=== PATIENT | male | born 1985 | race Caucasian/White ===

== ENCOUNTER → 2019-05-02 11:14 | Outpatient (ROUT) | payer OTHER, SELFPAY ==
[2019-05-02 11:33] LABS: Cholesterol 158 mg/dL (140-199); Glucose 84 mg/dL (70-100); HDL Cholesterol 42 mg/dL (40-60); LDL Cholesterol Calculated 98 mg/dL (<100); Triglycerides 88 mg/dL (35-150)
[2019-05-02 11:35] LABS: Hemoglobin A1C% w Est Avg Glu 4.8 % (4.0-6.0)
== END ==
PROVIDERS: PCP Chiropractor; Visit Provider Physician Assistant
DX: Z00.00 Encounter for general adult medical examination without abnormal findings (principal)
CPT/HCPCS: 80061; 82947; 83036

== ENCOUNTER → 2020-01-12 14:04 | Outpatient (CLI) | payer OTHER, SELFPAY ==
[2020-01-12 15:46] LABS: Influenza A - CEPHEID Flu A NEGATIVE (NEGATIVE); Influenza B - CEPHEID Flu B NEGATIVE (NEGATIVE)
[2020-01-14 03:36] LABS: COVID19 Sendout Not Detected (Not Detected)
== END ==
PROVIDERS: PCP Chiropractor; Visit Provider Registered Nurse
DX: R05 Cough (principal); Z20.828 Contact with and (suspected) exposure to other viral communicable diseases
CPT/HCPCS: 87502; 87635

== ENCOUNTER 2022-05-14 05:11 | Emergency (ER) | payer OTHER, MEDICAID, SELFPAY ==
[2022-05-14] VITALS (36 sets, daily range): BP systolic 55–198; BP diastolic 33–87; PULSE 48–95; RESP 0–41; TEMP 36.2; O2SAT 91–100; BMI 25.8
--- NOTE | 2022-05-14 | DI.RAD.S_ITS ---
PROCEDURE: XR CHEST 1V INDICATIONS: POST INTUBATION TECHNIQUE: One view of the chest was acquired. COMPARISON: [facility], CR, XR CHEST 1V, 05/14/2022, 5:39. FINDINGS: Surgical changes and devices: ET tube has been placed, the tip of which is 2.5 cm above the mario. Lungs and pleura: Mild interstitial pulmonary edema. No pleural effusions or pneumothorax. Mediastinum: Mediastinal contours appear normal. Heart size is normal. Bones and chest wall: No suspicious bony lesions. Overlying soft tissues appear unremarkable. IMPRESSION: 1. ET tube tip 2.5 cm above the mario. 2. Mild interstitial pulmonary edema. Comment: Final report is concordant with preliminary interpretation provided by [facility]. Dictated by: Robinson Del Rosario M.D. on 05/14/2022 at 8:23 Approved by: Robinson Del Rosario M.D. on 05/14/2022 at 8:24
--- NOTE | 2022-05-14 05:20 | ED_ITS ---
HPI - General Adult General Chief complaint: Chest Pain Stated complaint: chest pain, jaw pain and eye problem right side Time Seen by Provider: 05/14/22 05:20 History of Present Illness HPI narrative: Otherwise healthy 36-year-old gentleman with no significant medical history presents with chest pain and that began approximately 3:00 a.m. associated with sexual activity. Initially central, than radiating to the back,up to the right jaw and now pain radiating up to the right eye with now bilateral posterior eye pressure. He describes no drug use of any kind and no phosphodiesterase inhibitors, alcohol, stimulants, nitrates. He drove himself to the emergency room and on arrival is complaining chest pressure, he is pale but not diaphoretic. He is significantly hypotensive on arrival without compensatory tachycardia. He is afebrile. He reports no recent infectious disease c omplaints at all. No fevers, cough, chills, vomiting, diarrhea. No recent COVID infections. He does not describe a significant family history of cardiac disease. Does note that he had a similar episode of chest pain approximately a month ago that lasted 30-60 minutes not associated with activity, that episode did not have the jaw or eye pain associated. Related Data Home Medications Medication Instructions Recorded Confirmed No Known Home Medications 01/12/20 01/12/20 Allergies Allergy/AdvReac Type Severity Reaction Status Date / Time No Known Drug Allergies Allergy Verified 01/14/20 08:04 Review of Systems Review of Systems Narrative: Remainder of complete review of systems is otherwise unremarkable except for that included in the HPI. Patient History Social History Smoking Status: Never smoker Smoking Status: Never smoker Exam Initial Vital Signs Initial Vital Signs: Vital Signs Pulse Rate 87 05/14/22 05:15 Pulse Oximetry 100 05/14/22 05:15 General: Pale, weak, complaining of chest pain but not diaphoretic, Able to give a complete and coherent history. Well-nourished well-developed HEENT: Moist mucous membranes, normal sclera with reactive pupils, Neck: No JVD, supple Respiratory: Lungs are clear to auscultation, no wheezing no rales no rhonchi. Full and symmetrical air movement Cardiac: Regular rate and rhythm no murmurs no bruits. palpable radial and dorsalis pedis pulses bilaterally Abdomen: Soft, nontender, good bowel tones, no flank pain Skin: Pale, dry, no rashes Neurologic: Grossly neurologically intact with no obvious asymmetries or a bnormalities Extremities: No trauma, well perfused Psych: Cooperative, appropriate insight and affect Procedures Intubation Time of Intubation: 07:24 Time out performed: Yes sedative: Etomidate Mg Given: 20 paralytic: Succinylcholine Mg Given: 120 Laryngoscope: fiber optic video scope Assist Device Used: fiber optic device ET Tube Size: 8 ET Tube Uncuffed: No Tube Secured Depth (cm): 24 Tube Secured Location: teeth Tube Placement Confirmation: Visualized tube passing through cords, Equal breath sounds bilaterally, Confirmation by capnometry and Chest Xray Patient Tolerated Procedure: Well Course Orders Ordered: Discontinued Medications Etomidate (Etomidate 2 Mg/Ml 10 Ml Vial) 20 mg IV NOW ONE Stop: 05/14/22 08:10 Last Admin: 05/14/22 06:26 Dose: 20 mg Documented By: VIKY Sodium Chloride (Normal Saline 0.9%) 1,000 mls @ 1,000 mls/hr IV BOLUS ONE Stop: 05/14/22 06:27 Last Infusion: 05/14/22 06:45 Dose: 0 mls/hr Documented By: Admin: 05/14/22 05:45 Dose: 1,000 mls/hr Documented By: VIKY NOREPINEPHRINE BITARTRATE/D5W (Levophed) 4 mg in 250 mls @ 30 mls/hr IV TITRATE JIMENA; Protocol Last Titration: 05/14/22 08:25 Dose: 12 mcg/min, 45 mls/hr Documented By: Titration: 05/14/22 05:50 Dose: 12 mcg/min, 45 mls/hr Documented By: Titration: 05/14/22 05:40 Dose: 10 mcg/min, 37.5 mls/hr Documented By: Admin: 05/14/22 05:35 Dose: 8 mcg/min, 30 mls/hr Documented By: VIKY Sodium Chloride (Normal Saline 0.9%) 1,000 mls @ 1,000 mls/hr IV BOLUS ONE Stop: 05/14/22 07:07 Last Infusion: 05/14/22 06:30 Dose: 0 mls/hr Documented By: Admin: 05/14/22 05:30 Dose: 1,000 mls/hr Documented By: VIKY Fentanyl 1,000 mcg/ Dextrose 250 mls @ 13.494 mls/hr IV TITRATE JIMENA; Protocol Last Titration: 05/14/22 08:31 Dose: 0 mcg/kg/hr, 0 mls/hr Documented By: Titration: 05/14/22 07:10 Dose: 1.97 mcg/kg/hr, 37.977 mls/hr Documented By: Admin: 05/14/22 07:00 Dose: 0.16 mcg/kg/hr, 3 mls/hr Documented By: VIKY Lorazepam 20 mg/ Sodium (Chloride) 100 mls @ 3.856 mls/hr IV TITRATE JIMENA; Protocol Last Admin: 05/14/22 08:32 Dose: 0.01 mg/kg/hr, 3.856 mls/hr Documented By: VIKY Sodium Chloride (Normal Saline 0.9%) 1,000 mls @ 1,000 mls/hr IV BOLUS ONE Stop: 05/14/22 09:03 Last Infusion: 05/14/22 07:10 Dose: 0 mls/hr Documented By: Admin: 05/14/22 06:10 Dose: 1,000 mls/hr Documented By: VIKY Sodium Chloride (Normal Saline 0.9%) 1,000 mls @ 1,000 mls/hr IV BOLUS ONE Stop: 05/14/22 09:04 Last Admin: 05/14/22 08:34 Dose: Not Given Documented By: VIKY Epinephrine HCl 1 mg/ Dextrose 251 mls @ 45.18 mls/hr IV TITRATE JIMENA; Protocol Last Titration: 05/14/22 07:48 Dose: 4 mcg/min, 60.24 mls/hr Documented By: Titration: 05/14/22 06:47 Dose: 4 mcg/min, 60.24 mls/hr Documented By: Admin: 05/14/22 06:35 Dose: 3 mcg/min, 45.18 mls/hr Documented By: VIKY Succinylcholine Chloride (Succinylcholine 200 Mg/10 Ml Vial) 120 mg IV NOW ONE Stop: 05/14/22 08:11 Last Admin: 05/14/22 06:27 Dose: 120 mg Documented By: VIKY Vital Signs Vital signs: Vital Signs - 8 hr 05/14/22 05:20 05/14/22 05:15 05/14/22 05:24 Temperature 97.2 F L Pulse Rate 78 87 79 Respiratory Rate 16 14 Blood Pressure 74/34 L Pulse Oximetry 99 100 Oxygen Delivery Method Room Air 05/14/22 05:24 05/14/22 05:25 05/14/22 05:25 Temperature Pulse Rate 76 Respiratory Rate 14 Blood Pressure 74/37 L 66/42 L Pulse Oximetry Oxygen Delivery Method 05/14/22 05:28 05/14/22 05:28 05/14/22 05:30 Temperature Pulse Rate 70 71 Respiratory Rate 13 19 Blood Pressure 61/35 L Pulse Oximetry Oxygen Delivery Method 05/14/22 05:30 05/14/22 05:31 05/14/22 05:31 Temperature Pulse Rate 65 Respiratory Rate 17 Blood Pressure 57/33 L 58/33 L Pulse Oximetry Oxygen Delivery Method 05/14/22 05:35 05/14/22 05:35 05/14/22 05:43 Temperature Pulse Rate 73 56 L Respiratory Rate 16 28 H Blood Pressure 55/34 L Pulse Oximetry 99 Oxygen Delivery Method 05/14/22 05:43 05/14/22 05:46 05/14/22 05:46 Temperature Pulse Rate 53 L Respiratory Rate 18 Blood Pressure 77/46 L 82/53 L Pulse Oximetry 100 Oxygen Delivery Method 05/14/22 05:50 05/14/22 05:50 Temperature Pulse Rate 53 L Respiratory Rate 25 H Blood Pressure 82/51 L Pulse Oximetry 99 Oxygen Delivery Method Medical Decision Making Lab Data Lab results narrative: ABG 7.3/44/87/-/22.1 Result diagrams: 05/14/22 05:27 05/14/22 05:27 Labs: Lab Results 05/14/22 05/14/22 05/14/22 Range/Units 05:27 05:27 05:27 WBC 7.4 (4.5-11.0) X10^3/uL RBC 5.01 (4.5-5.9) X10^6/uL Hgb 14.8 (13.5-17.5) g/dL Hct 42.5 (41-53) % MCV 84.9 (80-100) fL MCH 29.6 (26-34) PG MCHC 34.8 (30-36) % RDW 13.2 (11.6-14.8) % Plt Count 140 L (150-400) X10^3/uL Neut % (Auto) 78.4 H (50-75) % Lymph % (Auto) 15.1 L (25-40) % Barton % (Auto) 5.8 (3-14) % Eos % (Auto) 0.5 L (2-4) % Baso % (Auto) 0.2 (0-2) % Neut # (Auto) 5800 (3196-9099) /uL Lymph # (Auto) 1100 (3714-6680) /uL Barton # (Auto) 400 (0-900) /uL Eos # (Auto) 0 (0-450) /uL Baso # (Auto) 0 (0-100) /uL D-Dimer 2107 H (<500) ng/ml ABG pH (7.35-7.45) ABG pCO2 (35-45) mmHg ABG pO2 (80-100) mmHg ABG HCO3 (22-26) mmol/L ABG Total CO2 (21-31) mmol/L ABG O2 Saturation (95-100) % ABG Base Excess (-2-2) mmol/L FiO2 Sodium 143 (137-145) mmol/L Potassium 3.8 (3.4-5.1) mmol/L Chloride 102 (98-107) mmol/L Carbon Dioxide 32 (22-32) mmol/L BUN 15 (9-20) mg/dL Creatinine 0.99 (0.66-1.25) mg/dL Estimated GFR > 60 (>60) mL/min BUN/Creatinine Ratio 15.2 (6-22) Glucose 110 H (70-100) mg/dL Calcium 8.5 (8.4-10.2) mg/dL Magnesium 2.2 (1.6-2.3) mg/dL Total Bilirubin 0.5 (0.2-1.3) mg/dL AST 42 (17-59) IU/L ALT 44 (<50) IU/L Alkaline Phosphatase 107 (38-126) U/L Total Creatine Kinase 126 (55-170) U/L CK-MB (CK-2) 1.78 (<2.37) ng/mL CK-MB (CK-2) Rel Index 1.4 L (1.5-5.0) % Troponin I < 0.012 (0.01-0.034) ng/mL Total Protein 7.7 (6.3-8.2) g/dL Albumin 4.3 (3.5-5.0) g/dL Globulin 3.4 (1.7-4.1) g/dL Albumin/Globulin Ratio 1.3 (1.0-2.8) Lipase 190 (23-300) U/L SARS-CoV-2 (PCR) (Negative) 05/14/22 05/14/22 Range/Units 05:40 07:18 WBC (4.5-11.0) X10^3/uL RBC (4.5-5.9) X10^6/uL Hgb (13.5-17.5) g/dL Hct (41-53) % MCV (80-100) fL MCH (26-34) PG MCHC (30-36) % RDW (11.6-14.8) % Plt Count (150-400) X10^3/uL Neut % (Auto) (50-75) % Lymph % (Auto) (25-40) % Barton % (Auto) (3-14) % Eos % (Auto) (2-4) % Baso % (Auto) (0-2) % Neut # (Auto) (1329-7352) /uL Lymph # (Auto) (5591-5398) /uL Barton # (Auto) (0-900) /uL Eos # (Auto) (0-450) /uL Baso # (Auto) (0-100) /uL D-Dimer (<500) ng/ml ABG pH 7.30 L (7.35-7.45) ABG pCO2 44.4 (35-45) mmHg ABG pO2 87 (80-100) mmHg ABG HCO3 22 (22-26) mmol/L ABG Total CO2 23 (21-31) mmol/L ABG O2 Saturation 96 (95-100) % ABG Base Excess -4.0 L (-2-2) mmol/L FiO2 100 Sodium (137-145) mmol/L Potassium (3.4-5.1) mmol/L Chloride (98-107) mmol/L Carbon Dioxide (22-32) mmol/L BUN (9-20) mg/dL Creatinine (0.66-1.25) mg/dL Estimated GFR (>60) mL/min BUN/Creatinine Ratio (6-22) Glucose (70-100) mg/dL Calcium (8.4-10.2) mg/dL Magnesium (1.6-2.3) mg/dL Total Bilirubin (0.2-1.3) mg/dL AST (17-59) IU/L ALT (<50) IU/L Alkaline Phosphatase (38-126) U/L Total Creatine Kinase (55-170) U/L CK-MB (CK-2) (<2.37) ng/mL CK-MB (CK-2) Rel Index (1.5-5.0) % Troponin I (0.01-0.034) ng/mL Total Protein (6.3-8.2) g/dL Albumin (3.5-5.0) g/dL Globulin (1.7-4.1) g/dL Albumin/Globulin Ratio (1.0-2.8) Lipase (23-300) U/L SARS-CoV-2 (PCR) Negative (Negative) Point of Care Testing Glucose POC 108 Point of care testing: Point of Care Testing Glucose POC 108 Imaging Data Chest x-ray: My Impression: Normal cardiac silhouette, slightly widened mediastinum, no pneumothorax, no pulmonary infiltrates. No significant anomalies appreciated. CT scan - chest: Radiologist's Impression: preliminary:Type A aortic dissection associated with an ascending aortic aneurysm. Intimal flap extends to the level of the aortic valve, into his brachiocephalic artery and the upper abdomen. Final: FINDINGS:? Image quality:? Excellent.? ? Pulmonary arteries:? Pulmonary arteries are normal in size, and demonstrate no intraluminal filling defects to suggest central pulmonary embolism.? ? Lungs and pleura:? There is a 5 mm nodule in lingula (series 5, image 172).? A 4 x 6 mm subpleural nodule is seen in right middle lobe.? Lungs are otherwise clear.? No pleural effusions or pneumothorax.? Central and peripheral airways are patent.? ? Mediastinum:? The aortic root is dilated measuring 5.5 cm in diameter.? There is a type a dissection of the thoracic aorta involving the aortic root, extending to the aortic arch and descending thoracic and abdominal aorta.? Coronary arteries are at the plane of the intimal flap.? The left coronary artery appears to arise from the false lumen.? The right coronary artery appears to arise from the true lumen.? The dissection involves the innominate artery, which is primarily supplied by the false lumen.? The distal dissection is not entirely visualized in the upper abdomen. ? Heart size is normal, without pericardial effusion.? No mediastinal or hilar adenopathy.? Esophagus is normal in caliber, without hiatal hernia.? ? Bones and chest wall:? No suspicious bony lesions.? Ribs and thoracic spine appear intact throughout.? Thyroid gland is normal.? No axillary or supraclavicular adenopathy.? ? Abdomen:? Visualized upper abdominal solid organs appear normal in the early arterial phase of enhancement.? There is a 1.5 cm splenule. ? IMPRESSION:? ? 1. There is a large type A dissection of aorta. ? Coronary arteries are at the intimal flap.? The left coronary artery appears to be supplied by the false lumen; and the right coronary artery appears to arise from the true lumen.? Dissection involves the innominate artery (brachiocephalic trunk) which is primarily supplied by the false lumen.? There is partial visualization of the distal dissection in the upper abdominal aorta.? ? 2. Aneurysmal aortic root measuring 5.5 cm in diameter.? ? 3. No evidence for pulmonary embolism.? The distal dissection in the abdominal aorta is not entirely within the field of view.? Follow-up CT using dissection protocol is suggested. ? 4. Bilateral lung nodules.? Please see enclosed follow-up recommendation. ? ECG Data Interpretation: Sinus rhythm at a rate of 75 Normal interval normal axis No acute ischemic changes MDM Narrative Medical decision making narrative: 36-year-old gentleman with no significant medical, history acute onset chest pain during sexual activity worsening with jaw pain, posterior eye pain. Arrives pale, significantly hypotensive but otherwise physical exam is unremarkable. Progressive hypotension. No signs or clinical history to suggest sepsis. Progressive worsening of his chest pain with absolutely normal EKG. Chest x-ray does not suggest pneumothorax or dramatically enlarged cardiac silhouette. 2 L of fluid and Levophed started and blood pressures are still soft with maps in the mid 60 range. Possibilities at this time include acute coronary syndrome, dissection, pulmonary embolism, cardiac tamponade, no infectious complaints or physical exam findings to point to sepsis, toxicology however he denies any medications prescription or recreational. No headaches or other neurologic findings to suggest stroke or stroke-like etiology. Blood work is pending. CT scan of the chest will be ordered. Hemorrhagic and hypovolemic shock are considered however there is no acute blood loss, no abdominal pain no obvious bleeding source and no reports of significant vomiting or diarrhea to explain significant volume losses otherwise. He describes no recent trauma. 600 patient continues to clinically deteriorate. Continued hypotension, poor perfusion, increasing chest pain. He is finishing his 3 L of fluid Levophed is started. He has moved to room 2 for planned intubation due to increased chest pain, work of breathing and respiratory distress. Waiting for CT images 615 CT of the chest reveals type a aortic dissection associated with an ascend ing aortic aneurysm. The intimal flap extends to the level of the aortic valve and into the brachiocephalic artery and the upper abdomen. Call to [facility]. Calls to [facility] as well as [facility] to arrange for transfer 630 radiology confirmation of dissection. Patient is successfully intubated. He is continuing to be hypotensive and a slightly bradycardic. Epinephrine drip is started 640 cardiac thoracic surgery acceptance at [facility]. Discussed with [facility]. Estimated time arrival is 7:00 a.m.. 650 call from [facility], due to mechanical difficulties the initial helicopter is not available. Next available helicopter will be at 8:30 a.m.. Will try alternate choice is for immediate transfer to [facility] prior to intubation, Discussed with patient whom to call. He very specifically requested that Kelin Cedillo and Barber Cedillo have access to any in all information regarding his care. He also provided access code to his phone should that be needed. Kelin Cedillo's phone number is [phone]. I have spoken with her at 7:00 a.m. she is updated on the critical nature of his findings as well as plans to transfer to [facility]. I have asked that she call [facility] for updates. She will update family. 655 call to [facility] to confirm patient is in route. 657 call from [facility]. They contacted [facility] and chopper is expected at 7:11 a.m. 700 care is reviewed with Dr. London. 718 BP Left 60/40 Right 159/69 [facility] is landing. Current drips include epi at 4 mics/min and levo at 12 mics. Ativan will is started and fentanyl drip continues. He has had multiple push doses of fentanyl and Versed for sedation. 744 Pt leaving the deptment , crew estimates ETA at Prov ER/OR 815. 751 Dr London updated Critical Care Time Critical Care Time Critical Care Time: Yes Total Critical Care Time: 137 Attestation: Critical care time is separate from other billable procedures. There is a high probability of a significant, sudden or life-threatening deterioration that requires my full and direct attention, intervention and personal management. This critical care time includes consultation with family and other consulting doctors, review of records, and interpretation of data from labs, EKGs and imaging as well as managements of undifferentiated shock chest pain and increasing respiratory distress Discharge Plan Departure Patient Disposition: [facility] Clinical Impression: Aortic dissection, Chest pain, Aneurysm of aortic root, Acute respiratory distress Prescriptions: No Action No Known Home Medications Referrals: [facility] [Primary Care Provider] -
--- NOTE | 2022-05-14 05:25 | DI.RAD.S_ITS ---
PROCEDURE: XR CHEST 1V INDICATIONS: chest pain TECHNIQUE: One view of the chest was acquired. COMPARISON: None. FINDINGS: Surgical changes and devices: None. Lungs and pleura: Lungs are clear. No pleural effusions or pneumothorax. Mediastinum: Mediastinal contours appear normal. Heart size is normal. Bones and chest wall: No suspicious bony lesions. Overlying soft tissues appear unremarkable. IMPRESSION: No evidence acute pulmonary process. Comment: Final report is concordant with preliminary interpretation provided by [facility]. Dictated by: Robinson Del Rosario M.D. on 05/14/2022 at 8:22 Approved by: Robinson Del Rosario M.D. on 05/14/2022 at 8:23
[2022-05-14] MEDS: SODIUM CHLORIDE 0.9% 1,000 ML 1000 ML IV ×3 (05:30→06:10)
[2022-05-14] MEDS: NOREPINEPHRINE BITARTRATE/D5W 4 MG/250 ML PLAST..BAG 30 MG IV (05:35)
[2022-05-14 05:41] LABS: Add Manual Diff / Slide Review NO; Basophils Absolute Auto 0 /uL (0-100); Basophils Percent Auto 0.2 % (0-2); Eosinophils Absolute Auto 0 /uL (0-450); Eosinophils Percent Auto 0.5 % (2-4); Hematocrit 42.5 % (41-53); Hemoglobin 14.8 g/dL (13.5-17.5); Lymphocytes Absolute Auto 1100 /uL (1100-4500); Lymphocytes Percent Auto 15.1 % (25-40); Mean Corpuscular HGB Conc 34.8 % (30-36); Mean Corpuscular Hemoglobin 29.6 PG (26-34); Mean Corpuscular Volume 84.9 fL (80-100); Monocytes Absolute Auto 400 /uL (0-900); Monocytes Percent Auto 5.8 % (3-14); Neutrophils Absolute Auto 5800 /uL (1500-7000); Neutrophils Percent Auto 78.4 % (50-75); Platelet Count 140 X10^3/uL (150-400); Red Blood Cell Count 5.01 X10^6/uL (4.5-5.9); Red Cell Distribution Width 13.2 % (11.6-14.8); White Blood Cell Count 7.4 X10^3/uL (4.5-11.0)
--- NOTE | 2022-05-14 05:49 | DI.CT.S_ITS ---
PROCEDURE: CT ANGIO CHEST PE PROTOCOL INDICATIONS: chest pain,hypotension TECHNIQUE: After the administration of intravenous contrast, 2 mm thick sections acquired from the pulmonary apices to the posterior costophrenic angles. 3-dimensional maximum intensity projection (MIP) coronal and sagittal reformats were then acquired through the thorax. For radiation dose reduction, the following was used: automated exposure control, adjustment of mA and/or kV according to patient size. COMPARISON: [facility], CR, XR CHEST 1V, 05/14/2022, 6:29. FINDINGS: Image quality: Excellent. Pulmonary arteries: Pulmonary arteries are normal in size, and demonstrate no intraluminal filling defects to suggest central pulmonary embolism. Lungs and pleura: There is a 5 mm nodule in lingula (series 5, image 172). A 4 x 6 mm subpleural nodule is seen in right middle lobe. Lungs are otherwise clear. No pleural effusions or pneumothorax. Central and peripheral airways are patent. Mediastinum: The aortic root is dilated measuring 5.5 cm in diameter. There is a type a dissection of the thoracic aorta involving the aortic root, extending to the aortic arch and descending thoracic and abdominal aorta. Coronary arteries are at the plane of the intimal flap. The left coronary artery appears to arise from the false lumen. The right coronary artery appears to arise from the true lumen. The dissection involves the innominate artery, which is primarily supplied by the false lumen. The distal dissection is not entirely visualized in the upper abdomen. Heart size is normal, without pericardial effusion. No mediastinal or hilar adenopathy. Esophagus is normal in caliber, without hiatal hernia. Bones and chest wall: No suspicious bony lesions. Ribs and thoracic spine appear intact throughout. Thyroid gland is normal. No axillary or supraclavicular adenopathy. Abdomen: Visualized upper abdominal solid organs appear normal in the early arterial phase of enhancement. There is a 1.5 cm splenule. IMPRESSION: 1. There is a large type A dissection of aorta. Coronary arteries are at the intimal flap. The left coronary artery appears to be supplied by the false lumen; and the right coronary artery appears to arise from the true lumen. Dissection involves the innominate artery (brachiocephalic trunk) which is primarily supplied by the false lumen. There is partial visualization of the distal dissection in the upper abdominal aorta. 2. Aneurysmal aortic root measuring 5.5 cm in diameter. 3. No evidence for pulmonary embolism. The distal dissection in the abdominal aorta is not entirely within the field of view. Follow-up CT using dissection protocol is suggested. 4. Bilateral lung nodules. Please see enclosed follow-up recommendation. No significant discrepancy with the shift production associate radiology preliminary report. Fleischner Society criteria for SOLID lung nodule followup. Nodule size (mm)Low-risk patientHigh-risk patient?4No follow-up neededFollow-up at 12 mo; if no change, no further follow-up>4-9Bsjlem-cr CT at 12 mo; if no change, no further follow-up needed.Initial follow-up CT at 6-12 mo, then 18-24 mo if no change. >6-8Initial follow-up CT at 6-12 mo, then 18-24 mo if no change. Initial follow-up CT at 3-6 mo, then 9-12 mo and 24 mo if no change. >8Follow-up CT at 3, 9, 24 mo. Or PET and/or biopsy.Same as for low-risk pts. Dictated by: Wayne Kaiser M.D. on 05/14/2022 at 7:55 Approved by: Wayne Kaiser M.D. on 05/14/2022 at 8:16
[2022-05-14 06:01] LABS: D Dimer 2107 ng/ml (<500)
[2022-05-14 06:13] LABS: COVID19 -Nasal RAPID Negative (Negative)
[2022-05-14] MEDS: ETOMIDATE 2 MG/ML 10 ML VIAL 20 MG IV (06:26)
[2022-05-14] MEDS: SUCCINYLCHOLINE 200 MG/10 ML VIAL 120 MG IV (06:27)
--- NOTE | 2022-05-14 06:28 | PC.NURSE ---
0628 pt intubated with 8.[address] Unger and secured 26 @ the lip. PCXR done for conformation. 0648 16 fr coude martínez inserted with 20 ml jessica urine returned. 0716 16fr og tube inserted after pt vomited undigested food and was suctioned.
[2022-05-14] MEDS: fentaNYL 100 MCG/2 ML INJ 400 MCG (06:35)
[2022-05-14] MEDS: EPINEPHrine 1 MG in DEXTROSE 5% IN WATER 250 ML 45.18 MG IV (06:35)
[2022-05-14] MEDS: MIDAZOLAM 2 MG/2 ML VIAL ×2 (06:52→07:14)
[2022-05-14 06:57] LABS: Alanine Aminotransferase 44 IU/L (<50); Albumin 4.3 g/dL (3.5-5.0); Albumin Globulin Ratio 1.3 (1.0-2.8); Alkaline Phosphatase 107 U/L (38-126); Aspartate Aminotransferase 42 IU/L (17-59); BUN Creatinine Ratio 15.2 (6-22); Bilirubin Total 0.5 mg/dL (0.2-1.3); Blood Urea Nitrogen 15 mg/dL (9-20); Calcium 8.5 mg/dL (8.4-10.2); Carbon Dioxide 32 mmol/L (22-32); Chloride 102 mmol/L (98-107); Creatine Kinase 126 U/L (55-170); Estimated Glomerular Filt Rate > 60 mL/min (>60); Globulin 3.4 g/dL (1.7-4.1); Glucose 110 mg/dL (70-100); Lipase 190 U/L (23-300); Magnesium 2.2 mg/dL (1.6-2.3); Potassium 3.8 mmol/L (3.4-5.1); Sodium 143 mmol/L (137-145); Total Protein 7.7 g/dL (6.3-8.2)
[2022-05-14] MEDS: fentaNYL 1,000 MCG in DEXTROSE 5% IN WATER 230 ML 3 MCG IV (07:00)
[2022-05-14 07:09] LABS: Troponin I < 0.012 ng/mL (0.01-0.034)
[2022-05-14 07:12] LABS: CKMB % Relative Index 1.4 % (1.5-5.0); Creatine Kinase MB 1.78 ng/mL (<2.37); HEMOLYSIS 28 (0-50)
[2022-05-14 07:40] LABS: HCO3 ABG 22 mmol/L (22-26); PCO2 ABG 44.4 mmHg (35-45); PO2 ABG 87 mmHg (80-100)
[2022-05-14 07:41] LABS: Fractionated Inspired Oxygen 100; Oxygen Saturation ABG 96 % (95-100); TCO2 ABG 23 mmol/L (21-31)
[2022-05-14] MEDS: LORazepam 20 MG in SODIUM CHLORIDE 0.9% 90 ML 3.856 MG IV (08:32)
--- NOTE | 2022-06-01 06:11 | PC.NURSE ---
On May 14 the tpt was transferred, he had Epinephrine infusing with 180.72 ml to be infused per [facility] 70.28 ml was infused prior to transfer; Norepinephrine infusing with 8.75 ml to be infused per [facility] 116.25 ml was infused prior to transfer. the Lorazepam was never hung to infuse but all of the bag was wasted
== END 2022-05-14 07:48 | disposition short-term general hospital (02) ==
PROVIDERS: Emergency Provider Emergency Medicine; PCP Chiropractor
DX: I71.02 Dissection of abdominal aorta (principal); R07.9 Chest pain, unspecified; I71.9 Aortic aneurysm of unspecified site, without rupture; R06.03 Acute respiratory distress; I95.9 Hypotension, unspecified; R00.1 Bradycardia, unspecified; Z20.822 Contact with and (suspected) exposure to COVID-19
CPT/HCPCS: 31500; 36415; 36600; 71045; 71275; 80053; 82550; 82553; 82805; 82962; 83690; 83735; 84484; 85025; 85379; 87635; 93005; 93010; 94002; 94799; 96365; 96367; 96368; 96375; 99285; 99291; 99292; C9803; J0171; J0330; J2060; J2250; J3010; Q9967

== ENCOUNTER 2022-12-13 11:04 | Emergency (ER) | payer OTHER, MEDICAID, SELFPAY ==
[2022-05-14 07:08] VITALS: RESP 20
[2022-12-13] VITALS (11 sets, daily range): BP systolic 114–130; BP diastolic 53–60; PULSE 58–76; RESP 16; TEMP 37.2; O2SAT 91–100; BMI 22.8
--- NOTE | 2022-12-13 13:22 | ED.MALEGU ---
HPI - Male Genitourinary <Amanda Murphy PA-C - Last Filed: 12/13/22 15:24> General Chief complaint: Urogenital-Male Stated complaint: cath issue/dvt LT leg/ Time Seen by Provider: 12/13/22 12:09 History of Present Illness HPI Narrative: 37-year-old male with past medical history aortic dissection, status post surgery for dissection repair presents to the ED with concern for blocked urinary catheter. Patient suffered a aortic dissection in May 2022, subsequently had surgery for the dissection repair, has had a partial colectomy, colostomy, also suffered spinal cord injury causing paralysis from waist down. Patient has a indwelling suprapubic catheter in place. Patient states that he was diagnosed with a DVT in the left leg and PE 2 weeks ago when he was seen at [facility] in [place], has been on Eliquis since then. Patient denies missed doses of Eliquis. Patient states that he is concerned that he is drinking a lot water, which does not match up with the amount of urine draining into his bag. Patient also states that his ostomy bag has been draining more watery stool. Patient states that he is concerned that his left leg swelling has not subsided. Patient denies fever, chills, shortness of breath, nausea, vomiting. Patient states he has had some chest pain that has not changed since he was diagnosed with a PE. Related Data Home Medications Medication Instructions Recorded Confirmed No Known Home Medications 01/12/20 01/12/20 Allergies Allergy/AdvReac Type Severity Reaction Status Date / Time oxycodone AdvReac Verified 12/13/22 11:34 tramadol AdvReac Verified 12/13/22 11:34 Review of Systems <Amanda Murphy PA-C - Last Filed: 12/13/22 15:24> Review of Systems ROS Unobtainable: All systems reviewed & are unremarkable except as noted in HPI and below Constitutional Constitutional: Denies chills, Denies fatigue, Denies fever(s), Denies frequent falls, Denies lethargy and Denies weakness Eyes Eyes: Denies change in vision, Denies eye discharge, Denies irritation and Denies loss of vision ENT Ears, Nose, Mouth, and Throat: Denies change in voice, Denies dizziness, Denies neck pain, Denies sore throat and Denies throat swelling Cardiovascular Cardiovascular: Denies chest pain, Denies irregular heart rhythm, Denies lightheadedness, Denies palpitations, Denies dyspnea, Denies dyspnea on exertion and Denies orthopnea Respiratory Respiratory: Denies cough, Denies dyspnea, Denies dyspnea on exertion and Denies wheezing Gastrointestinal Gastrointestinal: Denies abdominal pain, Denies change in bowel habits, Denies diarrhea, Denies nausea and Denies vomiting Genitourinary Genitourinary: Denies hematuria, Denies flank pain, Denies urinary incontinence and Denies urinary urgency Comments: Reduced urine draining from catheter Musculoskeletal Musculoskeletal: Denies back pain, Denies muscle weakness, Denies neck pain, Denies numbness and Denies tingling Comments: Left Leg swelling Integumentary/Breasts Skin/Breast: Denies pruritus, Denies erythema, Denies rash and Denies wounds Neurologic Neurologic: Denies behavioral changes, Denies confusion, Denies dizziness, Denies frequent falls, Denies loss of vision, Denies numbness, Denies tingling and Denies weakness Psychiatric Psychiatric: Denies anxiety, Denies behavioral changes, Denies confusion, Denies depression, Denies homicidal ideation and Denies suicidal ideation Endocrine Endocrine: Denies fatigue, Denies flushing and Denies palpitations Hematologic/Lymphatic Hematologic/Lymphatic: Denies easy bruising Allergic/Immunologic Allergic/Immunologic: Denies urticaria, Denies throat swelling and Denies wheezing Patient History <Amanda Murphy PA-C - Last Filed: 12/13/22 15:24> Social History Smoking Status: Never smoker Smoking Status: Never smoker Substance Use Type: does not use Exam <Amanda Murphy PA-C - Last Filed: 12/13/22 15:24> Narrative Exam Narrative: Const General:?cooperative, healthy appearing and comfortable [facility] Head:?normal to inspection Ears:?hearing grossly normal bilaterally Nose:?external nose normal Face and sinus:?normal facial exam and sinuses nontender Mouth:?oral mucosae normal Throat:?posterior oropharynx normal Eyes General:?appearance normal, both eyes and all related structures Neck Neck:?normal visual inspection and no lymphadenopathy noted Resp Effort & Inspection:?normal respiratory effort Auscultation:?clear to auscultation bilaterally Cardio Rate:?regular rate Rhythm:?regular rhythm Suprapubic catheter in place, draining urine Neuro General:?patient alert, patient awake and patient oriented x3 Initial Vital Signs Initial Vital Signs: Vital Signs Temperature 99 F 12/13/22 11:25 Pulse Rate 66 12/13/22 11:25 Respiratory Rate 16 12/13/22 11:25 Blood Pressure 114/53 L 12/13/22 11:25 Pulse Oximetry 98 12/13/22 11:25 Oxygen Delivery Method Room Air 12/13/22 11:25 <Chaka Rdz DO - Last Filed: 12/13/22 17:57> Initial Vital Signs Initial Vital Signs: Vital Signs Temperature 99 F 12/13/22 11:25 Pulse Rate 66 12/13/22 11:25 Respiratory Rate 16 12/13/22 11:25 Blood Pressure 114/53 L 12/13/22 11:25 Pulse Oximetry 98 12/13/22 11:25 Oxygen Delivery Method Room Air 12/13/22 11:25 Course <Amanda Murphy PA-C - Last Filed: 12/13/22 15:24> Vital Signs Vital signs: Vital Signs - 8 hr 12/13/22 11:25 12/13/22 11:40 12/13/22 12:00 Temperature 99 F Pulse Rate 66 60 58 L Respiratory Rate 16 Blood Pressure 114/53 L Pulse Oximetry 98 91 99 Oxygen Delivery Method Room Air Room Air 12/13/22 12:30 12/13/22 12:44 12/13/22 12:44 Temperature Pulse Rate 76 74 Respiratory Rate Blood Pressure 126/60 Pulse Oximetry 99 99 Oxygen Delivery Method 12/13/22 13:00 12/13/22 13:30 12/13/22 14:00 Temperature Pulse Rate 67 64 68 Respiratory Rate Blood Pressure Pulse Oximetry 99 100 100 Oxygen Delivery Method Room Air Room Air 12/13/22 14:30 12/13/22 15:00 12/13/22 15:04 Temperature Pulse Rate 72 63 68 Respiratory Rate Blood Pressure Pulse Oximetry 99 97 97 Oxygen Delivery Method Room Air 12/13/22 15:04 Temperature Pulse Rate Respiratory Rate Blood Pressure 130/60 Pulse Oximetry Oxygen Delivery Method <DO Genna Maurer Last Filed: 12/13/22 17:57> Vital Signs Vital signs: Vital Signs - 8 hr 12/13/22 11:25 12/13/22 11:40 12/13/22 12:00 Temperature 99 F Pulse Rate 66 60 58 L Respiratory Rate 16 Blood Pressure 114/53 L Pulse Oximetry 98 91 99 Oxygen Delivery Method Room Air Room Air 12/13/22 12:30 12/13/22 12:44 12/13/22 12:44 Temperature Pulse Rate 76 74 Respiratory Rate Blood Pressure 126/60 Pulse Oximetry 99 99 Oxygen Delivery Method 12/13/22 13:00 12/13/22 13:30 12/13/22 14:00 Temperature Pulse Rate 67 64 68 Respiratory Rate Blood Pressure Pulse Oximetry 99 100 100 Oxygen Delivery Method Room Air Room Air 12/13/22 14:30 12/13/22 15:00 12/13/22 15:04 Temperature Pulse Rate 72 63 68 Respiratory Rate Blood Pressure Pulse Oximetry 99 97 97 Oxygen Delivery Method Room Air 12/13/22 15:04 Temperature Pulse Rate Respiratory Rate Blood Pressure 130/60 Pulse Oximetry Oxygen Delivery Method MDM - Male Genitourinary <Amanda Murphy PA-C - Last Filed: 12/13/22 15:24> [facility] Narrative Medical decision making narrative: 37-year-old male with past medical history aortic dissection, status post surgery for dissection repair presents to the ED with concern for blocked urinary catheter. Physical exam is reassuring for soft compartments, no erythema or signs of infection. Patient has no new symptoms of shortness of breath or worsening chest pain. Vitals are normal and patient appears comfortable. The suprapubic catheter appears to be draining, will bladder scan, reassess. Bladder scan shows minimal residual urine in the bladder, less than 10 mL. Suprapubic catheter appears to be in place, continues to drain. Patient's ostomy bag shows watery stool. It is likely that patient is losing water through stool, and is having reduced urine output. Patient has a urologist follow-up for the suprapubic catheter care and change, agrees to keep that appointment.Left leg appears swollen compared to right, however compartments are soft and there are no signs of infection including erythema, discharge, warmth. Swelling is likely residual from the DVT from 2 weeks ago. Patient is also not having any new symptoms regarding the PE such as worsening shortness of breath or chest pain. ED return precautions were discussed with patient. Patient verbalized understanding. Medical records reviewed: Yes Discharge Plan Departure Patient Disposition: Home Clinical Impression: Encounter for suprapubic catheter care Instructions: How to Care for a Suprapubic Catheter Activity Restrictions/Additional Instructions: You were evaluated in the ED to check for a possible blocked suprapubic catheter and for leg swelling. Since you have been diagnosed with a DVT and a PE just 2 weeks ago, it is expected that your leg swelling will go down gradually over the next several weeks or months. It is reassuring that the leg is soft and there are no signs of infection such as redness or discharge. Your suprapubic catheter was checked and it is draining urine normally. It is likely that you are losing more water through your stool, which results in lesser urine production. Please follow-up with your urologist as scheduled for catheter care. Please follow-up with your PCP as soon as possible for continued oversight of the DVT and PE. Continue Eliquis. Continue good hydration. Return to the ED if you have shortness of breath, worsening chest pain, fevers, chills. Prescriptions: No Action No Known Home Medications Referrals: [facility] [Primary Care Provider] - Stand Alone Forms: Patient Portal/API <Chaka Rdz, - Last Filed: 12/13/22 17:57> [facility]estation: Dr Rdz Co-Sign Statement: I was available for consultation during this patient's emergency department visit. This chart is signed by myself for administrative purposes only. I did not have direct contact with this patient during this visit. They were seen independently by the APC.
--- NOTE | 2022-12-13 13:32 | PC.NURSE ---
Patient has pubic catheter, placed approximately 6 weeks ago. Pt reports urine leaking around catheter 2 days prior, this has resolved. Pt reports drinking fluids and feels he is not having adequate output. Pt states he drank water bottle of water today, decreased his intake since this has been happening. Urine is clear and yellow in catheter bag. Pubic site is clean and dry. Pt recently placed on eliquis for known PE and DVT.
--- NOTE | 2022-12-13 14:37 | PC.NURSE ---
New output noted in pt's catheter bag. Pt has full colostomy bag with yellow/brown liquid stool, pt providing self care including removing gas from colostomy.
== END 2022-12-13 15:24 | disposition home or self-care (01) ==
PROVIDERS: Emergency Provider Student in an Organized Health Care Education/Training Program; PCP Chiropractor
DX: T83.098A Other mechanical complication of other urinary catheter, initial encounter (principal)
CPT/HCPCS: 51798; 99282; 99283

== ENCOUNTER 2023-01-11 13:29 | Emergency (ER) | payer OTHER, MEDICAID, SELFPAY ==
[2022-05-14 07:08] VITALS: RESP 20
[2023-01-11 13:35] VITALS: BP 142/64; PULSE 73; RESP 14; TEMP 36.3; O2SAT 100
[2023-01-11 13:50] LABS: Appearance Urine UA CLOUDY; Bilirubin Urine UA 2+ (NEGATIVE); Color Urine UA BROWN; Glucose Urine UA NEGATIVE (Negative); Ketones Urine UA NEGATIVE (NEGATIVE); Leukocyte Esterase Urine UA 3+ (NEGATIVE); Nitrite Urine UA POSITIVE (Negative); Occult Blood Urine UA 3+ (Negative); Protein Urine UA 3+ (Negative); pH Urine UA 6.5 (4.5-8.0)
[2023-01-11 13:54] LABS: Ictotest Urine Positive (Negative)
[2023-01-11 13:57] LABS: Bacteria Urine Many (>30); Calcium Oxalate Crystals Urine Occasional; Culture Indicated Urine Specimen Cultured; RBC Urine 30-100/HPF (0-5/HPF); Squamous Epithelial Cell Urine 0-1 /HPF (0-5/HPF); WBC Urine 30-100/HPF (0-5/HPF)
--- NOTE | 2023-01-11 16:09 | ED_ITS ---
HPI - Male Genitourinary General Chief complaint: Urogenital-Male Stated complaint: blood in urine Time Seen by Provider: 01/11/23 15:35 History of Present Illness HPI Narrative: 37-year-old male nonsmoker with history of aortic dissection and resultant paraplegia presents with a chief complaint of discolored urine in his suprapubic bag for the past few days. He denies fever chills nor nausea, vomiting or diarrhea. He denies any headache or blurred vision. He has no chest pain or shortness of breath. He states that his catheter was last changed 2 weeks ago. Related Data Previous Rx's Medication Instructions Recorded sulfamethoxazole 800 1 tab PO BID 10 days #20 tabs 01/11/23 mg-trimethoprim 160 mg tablet (Bactrim DS) Allergies Allergy/AdvReac Type Severity Reaction Status Date / Time oxycodone AdvReac Verified 01/11/23 13:38 tramadol AdvReac Verified 01/11/23 13:38 Review of Systems Review of Systems Narrative: GENERAL: Denies chills, fatigue, malaise, fever, sweats. HEENT: Denies sinus pain, ear pain, sore throat, difficulty swallowing, dizziness. RESPIRATORY: Denies dyspnea, cough, wheezing, hemoptysis, sputum. CARDIOVASCULAR: Denies chest pain, palpitations, orthopnea, edema, GASTROINTESTINAL: Denies nausea, vomiting, abdominal pain, diarrhea, constip ation, melena. : See HPI MUSCULOSKELETAL: denies weakness, joint pain, or bony pain SKIN: Denies rash, skin lesions, or other NEUROLOGIC: Denies weakness, headache, numbness, change in speech, confusion, seizures, incoordination. PSYCHIATRIC: No concerning psychosocial issues. 12 point review of systems is negative except for those stated above Patient History Social History Smoking Status: Never smoker Smoking Status: Never smoker Substance Use Type: does not use Exam Narrative Exam Narrative: GEN: AOx3 and in no obvious distress EYES: Pupils are equal, round, and reactive to light and accommodation. Extraoccular muscles are intact bilaterally. There is no subconjunctival hemorrhage or exudate. CHEST: Lungs are clear to auscultation bilaterally and free of wheezes, rales, or rhonchi. Heart rate is regular rhythm, there are no murmurs, clicks, rubs, or gallops. There is no chest wall tenderness. ABD: Abdomen is soft and nontender. Suprapubic catheter in place There is no guarding or rebound. Bowel sounds are normal in all 4 quadrants. There is no mass or organomegaly. EXT: Full painless ROM of all extremities with no loss of sensation or strength. SKIN: Warm, pink, and dry. No erythema or rash Initial Vital Signs Initial Vital Signs: Vital Signs Temperature 97.3 F L 01/11/23 13:35 Pulse Rate 73 01/11/23 13:35 Respiratory Rate 14 01/11/23 13:35 Blood Pressure 142/64 H 01/11/23 13:35 Pulse Oximetry 100 01/11/23 13:35 Oxygen Delivery Method Room Air 01/11/23 13:35 Course Orders Ordered: ED Orders 01/11/23 13:42 Ictotest Urine Stat Urinalysis and Microscopic Stat Urine Culture Stat Vital Signs Vital signs: Vital Signs - 8 hr 01/11/23 13:35 Temperature 97.3 F L Pulse Rate 73 Respiratory Rate 14 Blood Pressure 142/64 H Pulse Oximetry 100 Oxygen Delivery Method Room Air MDM - Male Genitourinary Lab Data Labs: Lab Results 01/11/23 Range/Units 13:42 Urine Color Brown Urine Appearance Cloudy Urine pH 6.5 (4.5-8.0) Ur Specific Norris 1.020 (1.000-1.035) Urine Protein 3+ H (Negative) Urine Glucose (UA) Negative (Negative) g/dL Urine Ketones Negative (NEGATIVE) Urine Occult Blood 3+ H (Negative) Urine Nitrate Positive H (Negative) Urine Bilirubin 2+ H (NEGATIVE) Ur Bilirubin Confirm Positive H (Negative) Urine Urobilinogen 2.0 H (0.2) E.U./dL Ur Leukocyte Esterase 3+ H (NEGATIVE) Urine RBC 30-100/hpf H (0-5/HPF) Urine WBC 30-100/hpf H (0-5/HPF) Ur Squamous Epith Cells 0-1 /hpf (0-5/HPF) Calcium Oxalate Crystal Occasional H Urine Bacteria Many (>30) H (None) Ur Culture Indicated? Specimen cultured MDM Narrative Medical decision making narrative: [37] year old patient presents with abnormal appearing urine, suprapubic catheter in place Multiple etiologies for patient's symptoms considered including, but not limited to: [] Prior Charts reviewed in our EMR Primary Historian: patient Labs reviewed and interpreted by myself: Urinalysis convincing for infection Patient's symptoms improved over duration of stay with above-stated therapies. Findings and discharge diagnosis discussed with patient/family followed by verbalization of understanding Return precautions discussed with patient/family whom verbalize understanding of diagnosis and plan Discharge Plan Departure Patient Disposition: Home Clinical Impression: Urinary tract infection Instructions: DI for Urinary Tract Infection (UTI) Activity Restrictions/Additional Instructions: *You have been diagnosed with [urinary tract infection] *What to do: *Please continue to take your regular medications as directed. [ x] New medication prescriptions sent to your pharmacy: [facility] [ ] New medication written as a paper prescription [ ] No new medications given *Please follow up with your primary care provider in 2-3 days, call for an appointment. Let them know you were seen in the Emergency Department and that we ask that you be seen in follow up. We will electronically transmit a record of today's note if your PCP is in our system *If you do not have a primary care provider please contact the [facility] Resource line at [phone]. They will ask some questions about your medical history and help get you set up with a doctor in the community. *Return to Emergency Department if you should have any new, worsening or concerning symptoms, such as [fever greater than 101 F, shaking chills, worsening pain, persistent vomiting or other bothersome symptoms] If you would like to write a message to Dr. Christa Unger, please do so and email it to me at [email or web address] and I will be sure she gets it. Prescriptions: New sulfamethoxazole-trimethoprim [Bactrim DS] 800-160 mg tablet 1 tab PO BID 10 Days Qty: 20 0RF Referrals: Miscellaneous,Doctor, MD [Primary Care Provider] - Stand Alone Forms: Patient Portal/API
[2023-01-11 16:50] VITALS: BP 130/65; PULSE 70; RESP 18; O2SAT 100
== END 2023-01-11 16:50 | disposition home or self-care (01) ==
PROVIDERS: Emergency Provider Emergency Medicine
DX: N39.0 Urinary tract infection, site not specified (principal)
CPT/HCPCS: 81001; 87077; 87086; 87186; 99281; 99282

== ENCOUNTER 2023-09-04 01:20 | Emergency (ER) | payer OTHER, SELFPAY ==
[2022-05-14 07:08] VITALS: RESP 20
[2023-09-04] VITALS (17 sets, daily range): BP systolic 139–154; BP diastolic 63–69; PULSE 72–87; RESP 12–19; TEMP 36.2; O2SAT 95–100; BMI 22.8
--- NOTE | 2023-09-04 01:41 | DI.RAD.S_ITS ---
PROCEDURE: XR CHEST 1V INDICATIONS: chest pain TECHNIQUE: One view of the chest was acquired. COMPARISON: [facility], CT, CT ANGIO CHEST PE PROTOCOL, 05/14/2022, 6:04. [facility], CR, XR CHEST 1V, 05/14/2022, 6:29. [facility], CR, XR CHEST 1V, 05/14/2022, 5:39. FINDINGS: Surgical changes and devices: Sternotomy wires, expandable aortic stent in place, valvular prosthesis noted, likely aortic. Lungs and pleura: Lungs are clear. No pleural effusions or pneumothorax. Mediastinum: Mediastinal contours appear normal. Heart size is normal. Bones and chest wall: No suspicious bony lesions. Overlying soft tissues appear unremarkable. IMPRESSION: Postsurgical changes subsequent to diagnosis of aortic dissection 05/24. No acute disease at this time. Dictated by: Philipp Martinez M.D. on 09/04/2023 at 1:54 Approved by: Philipp Martinez M.D. on 09/04/2023 at 1:56
--- NOTE | 2023-09-04 02:04 | ED_ITS ---
HPI - Chest Pain <Earlene Warren, DO - Last Filed: 09/04/23 17:56> General Chief Complaint: Chest Pain Stated Complaint: PAIN R SIDE OF CHEST/ BLOOD CLOT?/DEHYDRATED/UTI Time Seen by Provider: 09/04/23 01:34 Source: patient Mode of arrival: Family Vehicle History of Present Illness HPI narrative: Patient is a 38-year-old male who has significant history of cardiac diet suction aortic valve replacement presenting today with right-sided chest pain. 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 He reports that today he has some right- sided chest pain it has been there for a couple days maybe a little bit worse today. No fever chills or cough pain does not move or radiate. He reports that it is at about nipple line. He also feels like he might be a little dehydrated his ostomy is putting out a little more liquid than normal. He overall appears well he is afebrile he has no pain nausea or vomiting. He reports that he is both a CT angio 2 days and follow-up with his CVT surgeon in [facility] on September 19. Related Data Allergies Allergy/AdvReac Type Severity Reaction Status Date / Time oxycodone AdvReac Verified 09/04/23 01:41 tramadol AdvReac Verified 09/04/23 01:41 <Chaka Rdz, DO - Last Filed: 09/04/23 08:52> History of Present Illness HPI narrative: Patient is a 38-year-old male who has significant history of cardiac dissection aortic valve replacement presenting today with right-sided chest pain. 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 He reports that today he has some right-sided chest pain it has been there for a couple days maybe a little bit worse today. No fever chills or cough pain does not move or radiate. He reports that it is at about nipple line. He also feels like he might be a little dehydrated his ostomy is putting out a little more liquid than normal. He overall appears well he is afebrile he has no pain nausea or vomiting. He reports that he is both a CT angio 2 days and follow-up with his CVT surgeon in [facility] on September 19. Review of Systems <Earlene Warren DO - Last Filed: 09/04/23 17:56> Review of Systems ROS Unobtainable: All systems reviewed & are unremarkable except as noted in HPI and below Patient History <Earlene Warren DO - Last Filed: 09/04/23 17:56> Social History Smoking Status: Never smoker Smoking Status: Never smoker Substance Use Type: does not use Exam <Earlene Warren DO - Last Filed: 09/04/23 17:56> Initial Vital Signs Initial Vital Signs: Vital Signs Temperature 97.2 F L 09/04/23 01:37 Pulse Rate 87 09/04/23 01:37 Respiratory Rate 16 09/04/23 01:37 Blood Pressure 139/66 09/04/23 01:37 Pulse Oximetry 100 09/04/23 01:37 Oxygen Delivery Method Room Air 09/04/23 01:37 GENERAL: Pleasant well-appearing 38-year-old male HEENT: Head atraumatic,EOMI, pupils reactive, face symmetric, moist mucous membranes CARDIOVASCULAR: Regular rate and rhythm without murmurs, rubs or gallops. RESPIRATORY: Breath sounds equal bilaterally, no wheezes rales or rhonchi. ABDOMEN: Soft, nontender. Normoactive bowel sounds all 4 quadrants. No guarding or rebound. Ostomy present : Castellon catheter in place EXTREMITIES: Normal range of motion, no clubbing or edema. Neurovascularly intact NEUROLOGICAL: Alert and oriented x4. 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 <Chaka Rdz DO - Last Filed: 09/04/23 08:52> Initial Vital Signs Initial Vital Signs: Vital Signs Temperature 97.2 F L 09/04/23 01:37 Pulse Rate 87 09/04/23 01:37 Respiratory Rate 16 09/04/23 01:37 Blood Pressure 139/66 09/04/23 01:37 Pulse Oximetry 100 09/04/23 01:37 Oxygen Delivery Method Room Air 09/04/23 01:37 Course <Earlene Warren DO - Last Filed: 09/04/23 17:56> Orders Ordered: Discontinued Medications Aspirin (Aspirin 81 Mg Chew Tab) 324 mg PO NOW ONE Stop: 09/04/23 01:42 Last Admin: 09/04/23 01:46 Dose: Not Given Documented By: MORIAH Sodium Chloride (Normal Saline 0.9%) 1,000 mls @ 1,000 mls/hr IV BOLUS ONE Stop: 09/04/23 03:03 Last Infusion: 09/04/23 03:49 Dose: Infused Documented By: Admin: 09/04/23 02:12 Dose: 1,000 mls/hr Documented By: AUNG Vital Signs Vital signs: Vital Signs - 8 hr 09/04/23 01:37 09/04/23 02:30 09/04/23 03:00 Temperature 97.2 F L Pulse Rate 87 80 78 Respiratory Rate 16 16 15 Blood Pressure 139/66 145/67 H 143/63 H Pulse Oximetry 100 99 99 Oxygen Delivery Method Room Air Room Air Room Air 09/04/23 04:08 09/04/23 04:09 09/04/23 04:09 Temperature Pulse Rate 81 80 Respiratory Rate 16 14 Blood Pressure 141/65 H Pulse Oximetry 98 98 Oxygen Delivery Method 09/04/23 04:30 09/04/23 05:00 09/04/23 05:30 Temperature Pulse Rate 76 79 80 Respiratory Rate 12 13 16 Blood Pressure Pulse Oximetry 96 96 98 Oxygen Delivery Method Room Air 09/04/23 06:00 09/04/23 06:30 09/04/23 07:00 Temperature Pulse Rate 79 79 74 Respiratory Rate 17 19 17 Blood Pressure Pulse Oximetry 95 97 97 Oxygen Delivery Method Room Air 09/04/23 07:30 09/04/23 08:00 09/04/23 08:30 Temperature Pulse Rate 78 77 72 Respiratory Rate 16 17 19 Blood Pressure Pulse Oximetry 97 96 97 Oxygen Delivery Method <Chaka Rdz DO - Last Filed: 09/04/23 08:52> Orders Ordered: Discontinued Medications Aspirin (Aspirin 81 Mg Chew Tab) 324 mg PO NOW ONE Stop: 09/04/23 01:42 Last Admin: 09/04/23 01:46 Dose: Not Given Documented By: MORIAH Sodium Chloride (Normal Saline 0.9%) 1,000 mls @ 1,000 mls/hr IV BOLUS ONE Stop: 09/04/23 03:03 Last Infusion: 09/04/23 03:49 Dose: Infused Documented By: Admin: 09/04/23 02:12 Dose: 1,000 mls/hr Documented By: AUNG Vital Signs Vital signs: Vital Signs - 8 hr 09/04/23 01:37 09/04/23 02:30 09/04/23 03:00 Temperature 97.2 F L Pulse Rate 87 80 78 Respiratory Rate 16 16 15 Blood Pressure 139/66 145/67 H 143/63 H Pulse Oximetry 100 99 99 Oxygen Delivery Method Room Air Room Air Room Air 09/04/23 04:08 09/04/23 04:09 09/04/23 04:09 Temperature Pulse Rate 81 80 Respiratory Rate 16 14 Blood Pressure 141/65 H Pulse Oximetry 98 98 Oxygen Delivery Method 09/04/23 04:30 09/04/23 05:00 09/04/23 05:30 Temperature Pulse Rate 76 79 80 Respiratory Rate 12 13 16 Blood Pressure Pulse Oximetry 96 96 98 Oxygen Delivery Method Room Air 09/04/23 06:00 09/04/23 06:30 09/04/23 07:00 Temperature Pulse Rate 79 79 74 Respiratory Rate 17 19 17 Blood Pressure Pulse Oximetry 95 97 97 Oxygen Delivery Method Room Air 09/04/23 07:30 09/04/23 08:00 09/04/23 08:30 Temperature Pulse Rate 78 77 72 Respiratory Rate 16 17 19 Blood Pressure Pulse Oximetry 97 96 97 Oxygen Delivery Method MDM - Chest Pain <Earlene Warren, DO - Last Filed: 09/04/23 17:56> Lab Data 09/04/23 01:52 09/04/23 01:52 Labs: Lab Results 09/04/23 Range/Units 01:52 WBC 5.4 (4.5-11.0) X10^3/uL RBC 4.92 (4.5-5.9) X10^6/uL Hgb 13.7 (13.5-17.5) g/dL Hct 40.1 L (41-53) % MCV 81.5 (80-100) fL MCH 27.7 (26-34) PG MCHC 34.0 (30-36) % RDW 13.8 (11.6-14.8) % Plt Count 135 L (150-400) X10^3/uL Neut % (Auto) 74.5 (50-75) % Lymph % (Auto) 15.6 L (25-40) % [place] % (Auto) 9.0 (3-14) % Eos % (Auto) 0.7 L (2-4) % Baso % (Auto) 0.2 (0-2) % Neut # (Auto) 4000 (1253-1829) /uL Lymph # (Auto) 800 L (2988-5056) /uL [place] # (Auto) 500 (0-900) /uL Eos # (Auto) 0 (0-450) /uL Baso # (Auto) 0 (0-100) /uL PT 12.7 H (9.4-12.5) SECONDS INR 1.1 (0.9-1.3) APTT 37 H (25.1-36.5) SECONDS Sodium 135 L (137-145) mmol/L Potassium 3.8 (3.4-5.1) mmol/L Chloride 102 (98-107) mmol/L Carbon Dioxide 27 (22-32) mmol/L BUN 14 (9-20) mg/dL Creatinine 0.44 L (0.66-1.25) mg/dL Estimated GFR > 60 (>60) mL/min BUN/Creatinine Ratio 31.8 H (6-22) Glucose 92 (70-100) mg/dL Calcium 9.8 (8.4-10.2) mg/dL Magnesium 1.7 (1.6-2.3) mg/dL Total Bilirubin 0.8 (0.2-1.3) mg/dL AST 39 (17-59) IU/L ALT 49 (<50) IU/L Alkaline Phosphatase 105 (38-126) U/L Total Creatine Kinase 171 H (55-170) U/L Troponin I < 0.012 (0.01-0.034) ng/mL Total Protein 8.1 (6.3-8.2) g/dL Albumin 4.4 (3.5-5.0) g/dL Globulin 3.7 (1.7-4.1) g/dL Albumin/Globulin Ratio 1.2 (1.0-2.8) Lipase 86 (23-300) U/L [facility] Narrative Medical decision making narrative: Patient has significant medical history he overall appears well. Pain is not reproducible with palpation. Not having significant chest pain. Blood work has been reviewed there is no significant leukocytosis anemia troponin negative CT angio done, it does report that there is aortic valve replacement type a dissection extending into right common carotid and brachiocephalic artery and extends into the right common iliac artery and there is soft attenuation mass in the left groin that is 10.7 x 6.4 cm related to remote trauma. Patient today having some right-sided chest pain appears well we have no records to compare, however patient was able to pull up my chart on his phone I was able to look at previous imaging which were only recently CT chest for pulmonary embolisms. Eventually was able to find some notes that report extension into a brachiocephalic artery along with both carotids I suspect that this is all chronic. Nonetheless due to severe disease patient CVT surgery was consulted <Chaka Rdz DO - Last Filed: 09/04/23 08:52> Lab Data Labs: Lab Results 09/04/23 Range/Units 01:52 WBC 5.4 (4.5-11.0) X10^3/uL RBC 4.92 (4.5-5.9) X10^6/uL Hgb 13.7 (13.5-17.5) g/dL Hct 40.1 L (41-53) % MCV 81.5 (80-100) fL MCH 27.7 (26-34) PG MCHC 34.0 (30-36) % RDW 13.8 (11.6-14.8) % Plt Count 135 L (150-400) X10^3/uL Neut % (Auto) 74.5 (50-75) % Lymph % (Auto) 15.6 L (25-40) % [place] % (Auto) 9.0 (3-14) % Eos % (Auto) 0.7 L (2-4) % Baso % (Auto) 0.2 (0-2) % Neut # (Auto) 4000 (7289-3018) /uL Lymph # (Auto) 800 L (4514-3184) /uL [place] # (Auto) 500 (0-900) /uL Eos # (Auto) 0 (0-450) /uL Baso # (Auto) 0 (0-100) /uL PT 12.7 H (9.4-12.5) SECONDS INR 1.1 (0.9-1.3) APTT 37 H (25.1-36.5) SECONDS Sodium 135 L (137-145) mmol/L Potassium 3.8 (3.4-5.1) mmol/L Chloride 102 (98-107) mmol/L Carbon Dioxide 27 (22-32) mmol/L BUN 14 (9-20) mg/dL Creatinine 0.44 L (0.66-1.25) mg/dL Estimated GFR > 60 (>60) mL/min BUN/Creatinine Ratio 31.8 H (6-22) Glucose 92 (70-100) mg/dL Calcium 9.8 (8.4-10.2) mg/dL Magnesium 1.7 (1.6-2.3) mg/dL Total Bilirubin 0.8 (0.2-1.3) mg/dL AST 39 (17-59) IU/L ALT 49 (<50) IU/L Alkaline Phosphatase 105 (38-126) U/L Total Creatine Kinase 171 H (55-170) U/L Troponin I < 0.012 (0.01-0.034) ng/mL Total Protein 8.1 (6.3-8.2) g/dL Albumin 4.4 (3.5-5.0) g/dL Globulin 3.7 (1.7-4.1) g/dL Albumin/Globulin Ratio 1.2 (1.0-2.8) Lipase 86 (23-300) U/L MDM Narrative Medical decision making narrative: Patient has significant medical history he overall appears well. Pain is not reproducible with palpation. Not having significant chest pain. Blood work has been reviewed there is no significant leukocytosis anemia troponin negative CT angio done, it does report that there is aortic valve replacement type a dissection extending into right common carotid and brachiocephalic artery and extends into the right common iliac artery and there is soft attenuation mass in the left groin that is 10.7 x 6.4 cm related to remote trauma. Patient today having some right-sided chest pain appears well we have no records to compare, however patient was able to pull up my chart on his phone I was able to look at previous imaging which were only recently CT chest for pulmonary embolisms. Eventually was able to find some notes that report extension into a brachiocephalic artery along with both carotids I suspect that this is all chronic. Nonetheless due to severe disease patient CVT surgery was consulted Dr rdz: Received turned over. Review patient's history and physical and workup up to this point. Patient is well-perfused. CT scan shows no acute issues. I did go over the CT scan report with on-call Cardiology at [place]. He was going to physically look at the images later this morning but he stated based on the reports today he feels that everything that is abnormal is expected. Patient is alert and oriented x3. He has a follow-up already scheduled in approximately 2 weeks with Cardiothoracic surgery. Will discharge patient home to keep that follow-up. He was given return precautions. He expressed understanding and agreement. Discharge Plan Departure Patient Disposition: Home Clinical Impression: Atypical chest pain Instructions: DI for Atypical Chest Pain Activity Restrictions/Additional Instructions: *You have been diagnosed with atypical chest pain *What to do: At this time please follow-up with CVT and with your appointments as previously scheduled. So nice see you *Continue to take medications as directed *Follow up with your primary care provider in 2-3 days or call [phone] *Return to ER if you should have increasing chest pain shortness of breath abdominal pain nausea vomiting weakness or any new, worsening or concerning symptoms Referrals: Miscellaneous,Doctor, MD [Primary Care Provider] - Stand Alone Forms: Patient Portal/API
[2023-09-04 02:05] LABS: Add Manual Diff / Slide Review NO; Basophils Absolute Auto 0 /uL (0-100); Basophils Percent Auto 0.2 % (0-2); Eosinophils Absolute Auto 0 /uL (0-450); Eosinophils Percent Auto 0.7 % (2-4); Hematocrit 40.1 % (41-53); Hemoglobin 13.7 g/dL (13.5-17.5); Lymphocytes Absolute Auto 800 /uL (1100-4500); Lymphocytes Percent Auto 15.6 % (25-40); Mean Corpuscular Hemoglobin 27.7 PG (26-34); Mean Corpuscular Volume 81.5 fL (80-100); Monocytes Absolute Auto 500 /uL (0-900); Neutrophils Absolute Auto 4000 /uL (1500-7000); Neutrophils Percent Auto 74.5 % (50-75); Platelet Count 135 X10^3/uL (150-400); Red Blood Cell Count 4.92 X10^6/uL (4.5-5.9); Red Cell Distribution Width 13.8 % (11.6-14.8); White Blood Cell Count 5.4 X10^3/uL (4.5-11.0)
[2023-09-04] MEDS: SODIUM CHLORIDE 0.9% 1,000 ML 1000 ML IV (02:12)
[2023-09-04 02:13] LABS: INR 1.1 (0.9-1.3); Prothrombin Time 12.7 SECONDS (9.4-12.5)
[2023-09-04 02:15] LABS: PTT Partial Thromboplastin Tim 37 SECONDS (25.1-36.5)
[2023-09-04 02:16] LABS: Alanine Aminotransferase 49 IU/L (<50); Albumin 4.4 g/dL (3.5-5.0); Albumin Globulin Ratio 1.2 (1.0-2.8); Alkaline Phosphatase 105 U/L (38-126); Aspartate Aminotransferase 39 IU/L (17-59); BUN Creatinine Ratio 31.8 (6-22); Bilirubin Total 0.8 mg/dL (0.2-1.3); Blood Urea Nitrogen 14 mg/dL (9-20); Calcium 9.8 mg/dL (8.4-10.2); Carbon Dioxide 27 mmol/L (22-32); Chloride 102 mmol/L (98-107); Creatine Kinase 171 U/L (55-170); Estimated Glomerular Filt Rate > 60 mL/min (>60); Globulin 3.7 g/dL (1.7-4.1); Glucose 92 mg/dL (70-100); HEMOLYSIS < 15 (0-50); Lipase 86 U/L (23-300); Magnesium 1.7 mg/dL (1.6-2.3); Potassium 3.8 mmol/L (3.4-5.1); Sodium 135 mmol/L (137-145); Total Protein 8.1 g/dL (6.3-8.2)
[2023-09-04 02:27] LABS: Troponin I < 0.012 ng/mL (0.01-0.034)
--- NOTE | 2023-09-04 02:32 | DI.CT.S_ITS ---
PROCEDURE: CT ANGIO CHEST ABDOMEN PELVIS INDICATIONS: Right-sided chest pain, prior dissection TECHNIQUE: Precontrast 5 mm thick sections acquired from the lung apices to the iliac crests. After the administration of intravenous contrast, 2.5 mm thick sections again acquired from the lung apices to the iliac crests. Maximum intensity projection (MIP) oblique sagittal and coronal reformats were then acquired. For radiation dose reduction, the following was used: automated exposure control. COMPARISON: [facility], CT, CT ANGIO CHEST PE PROTOCOL, 05/14/2022, 6:04. FINDINGS: Image quality: Excellent. AORTA: Prior aortic valvuloplasty. Type A dissection flap extending from the ascending aorta to the descending aorta. Aortic stent present in the descending aorta. The dissection flap continues from the distal descending aorta into the right common iliac chain. The splanchnic vessels are fed by the true lumen. The proximal dissection flap extends into the common carotid arteries, and continues out of the field of view. The dissection flap extending into the left internal carotid artery is new from prior. CHEST: Lungs and pleura: No acute airspace opacities. No pleural effusions or pneumothorax. Central and peripheral airways are patent and normal in caliber. Scattered solid pulmonary nodules measuring no greater than 3 mm, nonspecific. Mediastinum: Heart size is normal. No pericardial effusion. No mediastinal or hilar adenopathy by size criteria. Central pulmonary arteries are normal in size. Esophagus is normal in caliber. No hiatal hernias. Bones and chest wall: No axillary adenopathy by size criteria. Thyroid gland is unremarkable . No suspicious bony lesions. No vertebral body compression fractures. ABDOMEN: Vasculature: Celiac trunk and mesenteric arteries are patent. Renal arteries are also patent. Solid organs: Liver is normal in size and enhancement. Gallbladder is unremarkable. Biliary system is non dilated. Pancreas enhances normally. Spleen is normal in size and enhancement. No adrenal nodules. Both kidneys are normal in size and enhancement, without hydronephrosis. Punctate nonobstructing right-sided nephrolithiasis. Peritoneum and bowel: No free fluid or air. Bowel loops are normal in caliber and wall thickness. Nodes and vessels: No retroperitoneal or mesenteric adenopathy by size criteria. Inferior vena cava is normal in morphology. Miscellaneous: No ventral hernias. PELVIS: Genitourinary: Suprapubic catheter within the urinary bladder. Miscellaneous: No inguinal hernias or adenopathy. No ventral hernias. Soft tissue mass in the left groin. Bones: No suspicious bony lesions. No vertebral body compression fractures. Dystrophic calcification associated with the left pelvic wing and left hip. IMPRESSION: Type A aortic dissection, with interval surgery from prior. The dissection flaps extend into the internal carotid arteries, which is new from study dated 05/14/2022. Per Dr. Rdz, newer studies are available and are being compared at site of prior surgery for any change, and the patient is not exhibiting neurologic changes. The true lumen feeds the splanchnic vessels of the abdominal aorta. Soft tissue mass associated with the left groin, presumably posttraumatic in the setting extensive dystrophic calcification of the left hemipelvis and left hip. Agree with preliminary report. Dictated by: Tre Hammond M.D. on 09/04/2023 at 8:01 Approved by: Tre Hammond M.D. on 09/04/2023 at 8:16
--- NOTE | 2023-09-04 03:50 | PC.NURSE ---
Patient requesting to change his suprapubic catheter. He reports his was last changed about 10 days ago but that his bag is leaking and he is concerned about the catheter as well, requesting that everything be changed. Supplies provided and RN assisted with changing catheter. 18Fr catheter used which was same size as previous cath. Replacement complete without difficulty, new drainage bag in place.
--- NOTE | 2023-09-04 08:47 | PC.NURSE ---
Dr. arce at bedside
== END 2023-09-04 09:18 | disposition home or self-care (01) ==
PROVIDERS: Emergency Medicine; Emergency Provider Emergency Medicine
DX: R07.89 Other chest pain (principal)
CPT/HCPCS: 36415; 71045; 71275; 74174; 80053; 82550; 83690; 83735; 84484; 85025; 85610; 85730; 93005; 99285; Q9967

== ENCOUNTER 2024-08-07 02:25 | Emergency (ER) | payer OTHER, SELFPAY ==
[2022-05-14 07:08] VITALS: RESP 20
[2024-08-07 02:33] VITALS: BP 143/67; PULSE 86; RESP 16; TEMP 36.7; O2SAT 97; BMI 22.0
--- NOTE | 2024-08-07 02:38 | DI.RAD.S_ITS ---
PROCEDURE: XR KNEE RT 3V INDICATIONS: R knee pain after twisting injury TECHNIQUE: 4 views of the knee were acquired. COMPARISON: None. FINDINGS: Bones: No fractures or dislocations. No suspicious bony lesions. Soft tissues: No joint effusion. No suspicious soft tissue calcifications. IMPRESSION: No acute right knee fracture or dislocation. No significant joint effusion. No discrepancies from preliminary reading. Dictated by: Rolly Anguiano M.D. on 08/07/2024 at 8:02 Approved by: Rolly Anguiano M.D. on 08/07/2024 at 8:13
--- NOTE | 2024-08-07 02:50 | ED.LOWEXIN ---
HPI - Extremity Injury (Lower) General Chief Complaint: Extremity Injury, Lower Stated Complaint: twisted rt foot, wheelchair bound Time Seen by Provider: 08/07/24 02:28 Source: patient Mode of arrival: Wheelchair History of Present Illness HPI Narrative: Patient is a 38-year-old male. Complete paraplegia. Is in a wheelchair. States that he got his right leg twisted between the seat in his van his wheelchair. He was minimal if any sensation to his right leg he was concerned that he twisted his right foot or ankle or knee. No gross deformities noted. Related Data Allergies Allergy/AdvReac Type Severity Reaction Status Date / Time oxycodone AdvReac Verified 09/04/23 01:41 tramadol AdvReac Verified 09/04/23 01:41 Review of Systems Musculoskeletal Musculoskeletal: Reports system reviewed and no additional complaints, except as documented Integumentary/Breasts Skin/Breast: Reports system reviewed and no additional complaints, except as documented Patient History Social History Smoking Status: Never smoker Smoking Status: Never smoker Substance Use Type: does not use Exam Initial Vital Signs Initial Vital Signs: Vital Signs Temperature 98.1 F 08/07/24 02:33 Pulse Rate 86 08/07/24 02:33 Respiratory Rate 16 08/07/24 02:33 Blood Pressure 143/67 H 08/07/24 02:33 Pulse Oximetry 97 08/07/24 02:33 Oxygen Delivery Method Room Air 08/07/24 02:33 Neuro Other: Decreased sensation to right lower extremity this is baseline Extrem Other: No gross deformities. His ankle appears to be intact with passive movement. Right knee appears to be intact with some very mild swelling of the right knee. Course Orders Ordered: ED Orders 08/07/24 02:38 XR knee RT 3V Stat Vital Signs Vital signs: Vital Signs - 8 hr 08/07/24 02:33 Temperature 98.1 F Pulse Rate 86 Respiratory Rate 16 Blood Pressure 143/67 H Pulse Oximetry 97 Oxygen Delivery Method Room Air MDM - Extremity Injury (Lower) Imaging Data Extremity x-ray #1: Radiologist's Impression: Tricompartmental degenerative changes of the right knee without acute traumatic injury MDM Narrative Medical decision making narrative: No fractures noted of the right knee. His ankle appears to be intact without any this. He was at his baseline neurologic status. We will hold on further radiologic studies for now and discharged home with return precautions. Discharge Plan Departure Patient Disposition: Home Clinical Impression: Injury of leg, right Activity Restrictions/Additional Instructions: There were no fractures noted on the x-ray and everything else with your right ankle appears to be intact. Return to the emergency department for new symptoms. Referrals: Miscellaneous,Doctor, [Primary Care Provider] - Stand Alone Forms: Patient Portal/API/Survey
== END 2024-08-07 03:35 | disposition home or self-care (01) ==
PROVIDERS: Emergency Provider Emergency Medicine
DX: S89.91XA Unspecified injury of right lower leg, initial encounter (principal); X50.1XXA Overexertion from prolonged static or awkward postures, initial encounter; G82.21 Paraplegia, complete
CPT/HCPCS: 73562; 99281; 99283

== ENCOUNTER 2025-01-04 02:14 | Emergency (ER) | payer OTHER, MEDICAID, SELFPAY ==
[2022-05-14 07:08] VITALS: RESP 20
[2025-01-04 02:20] VITALS: BP 135/62; PULSE 82; RESP 16; TEMP 36.7; O2SAT 97; BMI 24.3
[2025-01-04 03:00] VITALS: BP 108/58; PULSE 77; O2SAT 96
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
[2025-01-04 03:30] VITALS: BP 114/55; PULSE 69; O2SAT 97
[2025-01-04 04:00] VITALS: BP 131/64; PULSE 73; RESP 18; O2SAT 97
[2025-01-04] MEDS: SILVER SULFADIAZINE 1% CREAM 25 GM 1 APPLIC TOP (04:09)
--- NOTE | 2025-01-04 04:09 | PC.WOUNDPHOT ---
3 ross on right lower extremity and right hip
== END 2025-01-04 04:45 | disposition home or self-care (01) ==
PROVIDERS: Emergency Provider Emergency Medicine
DX: T24.012A Burn of unspecified degree of left thigh, initial encounter (principal); T24.002A Burn of unspecified degree of unspecified site of left lower limb, except ankle and foot, initial encounter; X16.XXXA Contact with hot heating appliances, radiators and pipes, initial encounter
CPT/HCPCS: 99282

== ENCOUNTER 2025-03-18 17:40 | Emergency (ER) | payer OTHER, MEDICAID, SELFPAY ==
[2022-05-14 07:08] VITALS: RESP 20
[2025-03-18 18:17] VITALS: BP 147/67; PULSE 81; RESP 16; TEMP 37; O2SAT 100; BMI 25.8
[2025-03-18 21:43] VITALS: BP 142/66; PULSE 65; RESP 14; TEMP 37.2; O2SAT 100
[2025-03-18 23:56] VITALS: BP 145/67; PULSE 81; RESP 17; O2SAT 97
--- NOTE | 2025-03-18 23:58 | PC.NURSE ---
Pt has a chronic suprapubic catheter and he just changed it to get a UA.
--- NOTE | 2025-03-19 01:56 | DI.US.S_ITS ---
PROCEDURE: US ABDOMEN COMPLETE INDICATIONS: Right flank pain, T5 para, look at gallbladder too TECHNIQUE: Real-time scanning was performed of the abdominal and retroperitoneal organs, with image documentation. COMPARISON: None. FINDINGS: Liver: Liver is normal in size and homogeneous in echotexture. Gallbladder: Not seen Biliary ducts: Intrahepatic bile ducts are non-dilated. Extrahepatic bile duct caliber measures 5 mm. Normal is 6-7 mm or less in diameter, or 10 mm or less post-cholecystectomy. Pancreas: Visualized portions of the pancreas are sonographically normal. Spleen: Spleen is normal in size and homogeneous in echotexture. Kidneys: Kidneys are normal in size and echotexture. Right kidney measures 11 cm long; left kidney measures 8 cm long. No hydronephrosis or nephrolithiasis. No solid masses. Aorta: Visualized aorta is normal in caliber at less than 3 cm. Iliacs: Proximal common iliac arteries are normal in caliber at less than 2.5 cm. IVC: Intrahepatic inferior vena cava is patent. Miscellaneous: No free abdominal fluid. IMPRESSION: No hydronephrosis. No discrete shadowing stone. The left kidney is smaller than the right kidney. No significant discrepancy from the preliminary report. Dictated by: Dean Arriaga M.D. on 03/19/2025 at 7:45 Approved by: Dean Arriaga M.D. on 03/19/2025 at 7:46
[2025-03-19 02:41] LABS: Add Manual Diff / Slide Review NO; Basophils Absolute Auto 0 /uL (0-100); Basophils Percent Auto 0.4 % (0-2); Eosinophils Absolute Auto 100 /uL (0-450); Eosinophils Percent Auto 1.4 % (2-4); Hematocrit 39.5 % (41-53); Hemoglobin 13.1 g/dL (13.5-17.5); Lymphocytes Absolute Auto 1100 /uL (1100-4500); Lymphocytes Percent Auto 24.8 % (25-40); Mean Corpuscular HGB Conc 33.1 % (30-36); Mean Corpuscular Hemoglobin 27.5 PG (26-34); Mean Corpuscular Volume 83.2 fL (80-100); Monocytes Absolute Auto 300 /uL (0-900); Neutrophils Absolute Auto 3000 /uL (1500-7000); Neutrophils Percent Auto 66.4 % (50-75); Platelet Count 136 X10^3/uL (150-400); Red Blood Cell Count 4.75 X10^6/uL (4.5-5.9); Red Cell Distribution Width 15.1 % (11.6-14.8); White Blood Cell Count 4.5 X10^3/uL (4.5-11.0)
[2025-03-19 02:53] LABS: Alanine Aminotransferase 23 IU/L (<50); Albumin 4.4 g/dL (3.5-5.0); Albumin Globulin Ratio 1.4 (1.0-2.8); Alkaline Phosphatase 91 U/L (38-126); Aspartate Aminotransferase 31 IU/L (17-59); BUN Creatinine Ratio 18.3 (6-22); Bilirubin Total 0.5 mg/dL (0.2-1.3); Blood Urea Nitrogen 13 mg/dL (9-20); Calcium 8.9 mg/dL (8.4-10.2); Carbon Dioxide 26 mmol/L (22-32); Chloride 104 mmol/L (98-107); Estimated Glomerular Filt Rate > 60 mL/min (>60); Globulin 3.2 g/dL (1.7-4.1); Glucose 96 mg/dL (70-99); HEMOLYSIS < 15 (0-50); Potassium 4.2 mmol/L (3.4-5.1); Sodium 139 mmol/L (137-145); Total Protein 7.6 g/dL (6.3-8.2)
--- NOTE | 2025-03-19 04:24 | ED_ITS ---
HPI - Back Pain/Injury General Chief Complaint: Back Pain/Injury Stated Complaint: might have a kidney stone Time Seen by Provider: 03/18/25 19:25 Source: patient History of Present Illness HPI Narrative: 39-year-old gentleman with a history of complete aortic dissection at the age of 36 with subsequent T5 paraplegia, necrotic bowel, ileostomy after colon removed and suprapubic catheter with recurrent bladder infections comes in complaining of discomfort in his right flank. He has minimal sensation at that level so when he is having increasing symptoms he does tend to pay attention. He notes that he has been having a lot of oxalate stones coming out of his suprapubic catheter and not as many today. He describes no fevers, chills, nausea or vomiting. No obvious trauma, he does have a wheelchair in his otherwise doing quite well living independently at home Related Data Previous Rx's ?Medication ?Instructions ?Recorded cephalexin 500 mg capsule 500 mg PO Q6H #20 caps 01/04 silver sulfadiazine 1 % topical 1 applic topical DAILY #400 grams 01/04/25 cream (Silvadene) Allergies Allergy/AdvReac Type Severity Reaction Status Date / Time oxycodone AdvReac Verified 03/18/25 18:19 tramadol AdvReac Verified 03/18/25 18:19 Review of Systems Review of Systems Narrative: Pertinent positive and negative findings as per HPI Patient History Medical History (Updated 03/19/25 @ 04:34 by Christa Unger MD) Aortic dissection Exam Initial Vital Signs Initial Vital Signs: Vital Signs Temperature 98.6 F 03/18/25 18:17 Pulse Rate 81 03/18/25 18:17 Respiratory Rate 16 03/18/25 18:17 Blood Pressure 147/67 H 03/18/25 18:17 Pulse Oximetry 100 03/18/25 18:17 Oxygen Delivery Method Room Air 03/18/25 18:17 General: Healthy appearing, in no acute distress. Able to give a complete and coherent history. Well-nourished well-developed HEENT: Moist mucous membranes, normal sclera with reactive pupils, Respiratory: Lungs are clear to auscultation, no wheezing no rales no rhonchi. Full and symmetrical air movement Cardiac: Regular rate and rhythm no murmurs no bruits Abdomen: Soft, nontender, no rebound or guarding, no flank pain, no rashes. Patient has minimal sensation below T5 Skin: Warm and dry, no rashes Neurologic: T5 paraplegic, no gross skin breakdown or increased autonomic response with deep abdomen palpation Extremities: No trauma, Psych: Cooperative, appropriate insight and affect Course Orders Ordered: ED Orders 03/19/25 01:56 US abdomen complete Stat 03/19/25 02:30 Complete Blood Count AUTO DIFF Stat Comprehensive Metabolic Panel Stat Vital Signs Vital signs: Vital Signs - 8 hr 03/18/25 21:43 03/18/25 23:56 Temperature 98.9 F Pulse Rate 65 81 Respiratory Rate 14 17 Blood Pressure 142/66 H 145/67 H Pulse Oximetry 100 97 Oxygen Delivery Method Room Air Room Air MDM - Back Pain/Injury Lab Data 03/19/25 02:30 03/19/25 02:30 Labs: Lab Results 03/19/25 Range/Units 02:30 WBC 4.5 (4.5-11.0) X10^3/uL RBC 4.75 (4.5-5.9) X10^6/uL Hgb 13.1 L (13.5-17.5) g/dL Hct 39.5 L (41-53) % MCV 83.2 (80-100) fL MCH 27.5 (26-34) PG MCHC 33.1 (30-36) % RDW 15.1 H (11.6-14.8) % Plt Count 136 L (150-400) X10^3/uL Neut % (Auto) 66.4 (50-75) % Lymph % (Auto) 24.8 L (25-40) % [place] % (Auto) 7.0 (3-14) % Eos % (Auto) 1.4 L (2-4) % Baso % (Auto) 0.4 (0-2) % Neut # (Auto) 3000 (2869-9428) /uL Lymph # (Auto) 1100 (6407-7463) /uL [place] # (Auto) 300 (0-900) /uL Eos # (Auto) 100 (0-450) /uL Baso # (Auto) 0 (0-100) /uL Sodium 139 (137-145) mmol/L Potassium 4.2 (3.4-5.1) mmol/L Chloride 104 (98-107) mmol/L Carbon Dioxide 26 (22-32) mmol/L BUN 13 (9-20) mg/dL Creatinine 0.71 (0.66-1.25) mg/dL Estimated GFR > 60 (>60) mL/min BUN/Creatinine Ratio 18.3 (6-22) Glucose 96 (70-99) mg/dL Calcium 8.9 (8.4-10.2) mg/dL Total Bilirubin 0.5 (0.2-1.3) mg/dL AST 31 (17-59) IU/L ALT 23 (<50) IU/L Alkaline Phosphatase 91 (38-126) U/L Total Protein 7.6 (6.3-8.2) g/dL Albumin 4.4 (3.5-5.0) g/dL Globulin 3.2 (1.7-4.1) g/dL Albumin/Globulin Ratio 1.4 (1.0-2.8) MDM Narrative Medical decision making narrative: 39-year-old gentleman with complex medical history, had aortic dissection with prolonged hospital stay multiple complications T5 paraplegia,: Ischemia with ileostomy and a suprapubic catheter now comes in with right flank pain. As his sensation below T5 is minimal it is hard to tell when he is having worsening abdominal pain in the past he has over looked kidney infections in ended up with far with consequences. Blood work today is quite reassuring with no evidence of systemic infection, as he did have CT angiogram of the chest abdomen and pelvis at [facility] about a month ago that did not show acute abnormalities, scan is reviewed via his patient portal, we chose to do an ultrasound today. Ultrasound was unremarkable. At this point reassurance is given with no significant pathologic explanation of the most likely explanation is musculoskeletal pain which certainly makes sense given his upper body mobility twisting turning to manage his paraplegia. Findings reviewed with the patient, there was no indication for further imaging, lab work or hospitalization and he is safe for discharge Discharge Plan Departure Patient Disposition: Home Clinical Impression: Acute flank pain Instructions: DI for Muscle Strain Activity Restrictions/Additional Instructions: Thank you for coming in today Your workup is actually quite reassuring. No sign of infection, blood loss, kidney dysfunction liver dysfunction. As you had a relatively normal CT scan of your belly a month ago in [place], we did an ultrasound today that showed no obvious kidney dysfunction, kidney infection, kidney stones. She did not see your gallbladder which means that it certainly is not enlarged inflamed or infected You do not have any obvious skin changes to suggest that this might be shingles With chronic indwelling catheter urinalysis is almost always going to show some type of growth but in the absence of elevated white blood cell count we chose not to actually culture your urine. I do not think this is a bladder infection and it is definitely not a kidney infection. Most likely explanation at this point is musculoskeletal pain. Please continue to pay attention to your symptoms and if they seem that they are worsening, Re localizing or developing new findings please feel free to return to the ER Prescriptions: No Action silver sulfadiazine [Silvadene] 1 % cream 1 applic topical DAILY Qty: 400 0RF Rx Instructions: apply a 1.5 mm thickness cephalexin 500 mg capsule 500 mg PO Q6H Qty: 20 0RF Referrals: Miscellaneous,Doctor, [Primary Care Provider, Medical] Stand Alone Forms: Patient Portal/API
[2025-03-19 05:10] VITALS: BP 128/59; PULSE 68; RESP 17; O2SAT 98
== END 2025-03-19 05:28 | disposition home or self-care (01) ==
PROVIDERS: Emergency Provider Emergency Medicine
DX: R10.9 Unspecified abdominal pain (principal)
CPT/HCPCS: 36415; 76700; 80053; 85025; 99283; 99284

== ENCOUNTER 2025-06-05 22:16 | Emergency (ER) | payer OTHER, MEDICAID, SELFPAY ==
[2022-05-14 07:08] VITALS: RESP 20
[2025-06-05 22:40] VITALS: PULSE 84; O2SAT 98
[2025-06-05 22:41] VITALS: BP 163/56; PULSE 80; RESP 17; O2SAT 98
[2025-06-05 22:42] VITALS: BP 185/83; PULSE 86; RESP 16; TEMP 37; O2SAT 98; BMI 24.0
--- NOTE | 2025-06-05 22:47 | EKG_ITS ---
[facility] [address] [address] Test Date: 2025-06-05 Pat Name: Chaka Castro Department: [facility] Room: Gender: Male Reinforcing Rod Layer: MEGHA : 1985 Requested By: Order Number: [id number] Reading MD: Tk Amaya Measurements Intervals [place] Rate: 76 P: 58 SD: 152 QRS: 11 QRSD: 78 T: 64 QT: 360 QTc: 405 Interpretive Statements Normal sinus rhythm Electronically Signed On 06-10-2025 16:18:54 PDT by Tk Amaya
--- NOTE | 2025-06-05 22:50 | ED.CHESTPAIN ---
HPI - Chest Pain General Chief Complaint: Urogenital-Male Stated Complaint: Urinary Symptoms, L Foot Pain, Chestpain Time Seen by Provider: 06/05/25 22:45 Source: patient Mode of arrival: Wheelchair Limitations: no limitations History of Present Illness HPI narrative: 39-year-old male patient with a history of surgery for ascending thoracic aortic aneurysm and aortic valve replacement 3 years ago with anesthesia complications of ischemia to the spinal cord resulting in a T5 paraplegia and also ischemic bowel resulting in a bowel resection and colostomy. He complains of 24 hours of right-sided chest wall pain with no shortness of breath, diaphoresis or mid/central chest pain. Worse with movement and deep breaths. He has also had malodorous urine and slight malaise as thinking he might have a UTI because he does not have any feeling in his bladder to know about dysuria or frequency. He also complains of a worsening pressure sore on his left foot over the last 1 or 2 months. Related Data Previous Rx's ?Medication ?Instructions ?Recorded cephalexin 500 mg capsule 500 mg PO Q6H #20 caps 01/04/25 silver sulfadiazine 1 % topical 1 applic topical DAILY #400 grams 01/04/25 cream (Silvadene) sulfamethoxazole 800 1 tab PO BID 7 days #14 tabs 06/06/25 mg-trimethoprim 160 mg tablet (Bactrim DS) Allergies Allergy/AdvReac Type Severity Reaction Status Date / Time oxycodone AdvReac Verified 06/05/25 22:42 tramadol AdvReac Verified 06/05/25 22:42 Patient History Medical History (Updated 06/06/25 @ 01:26 by Timothy Nye MD) Aortic dissection Social History Smoking Status: Never smoker Smoking Status: Never smoker Exam Narrative Exam Narrative: General: Alert and conversant. No distress. Appears well nourished and well hydrated Lungs: Clear to auscultation with good air movement. No wheezing, rales or rhonchi. No respiratory distress Cardiac: Regular rate and rhythm with no appreciable murmur or gallop Abdomen: Soft, nontender with no distention or masses. Normal bowel sounds. No rebound or guarding. Colostomy bag in the right lower quadrant. Musculoskeletal: Right-sided chest wall mild tenderness. Patient has a 1.2 cm ulcer on the sole of the left foot proximal to the 5th toe. No erythema or warmth. Otherwise Exam of the extremities, axial spine and ribcage reveals no deformity, bony tenderness or swelling. Range of motion intact Neuro: Alert and oriented. Cranial nerves, motor, sensory and cerebellar all grossly intact. No focal deficit Skin: Warm and normal color. No rashes Psychological: Normal affect and interaction. No evidence of delusion or psychosis. Normal mood. Initial Vital Signs Initial Vital Signs: Vital Signs Pulse Rate 84 06/05/25 22:40 Pulse Oximetry 98 06/05/25 22:40 Course Orders Ordered: ED Orders 06/05/25 22:47 EKG-12 Lead Stat 06/05/25 22:55 XR chest 1V Stat Complete Blood Count AUTO DIFF Stat Comprehensive Metabolic Panel Stat Troponin & CK Cardiac Panel Stat 06/06/25 00:37 Urinalysis and Microscopic Stat Urine Culture Stat 06/06/25 01:27 Consult to Wound Care Stat Sodium Chloride (Normal Saline 0.9%) 1,000 mls @ 150 mls/hr IV CONT JIMENA Last Admin: 06/06/25 00:01 Dose: 150 mls/hr Documented By: CHARO Discontinued Medications Trimethoprim/Sulfamethoxazole (Trimeth/Sulfa 160/800 (Ds) Tablet) 1 tab PO NOW ONE Stop: 06/06/25 01:27 Vital Signs Vital signs: Vital Signs - 8 hr 06/05/25 22:40 06/05/25 22:41 06/05/25 22:41 Temperature Pulse Rate 84 80 Respiratory Rate 17 Blood Pressure 163/56 H Pulse Oximetry 98 98 Oxygen Delivery Method 06/05/25 22:42 06/05/25 23:00 06/05/25 23:00 Temperature 98.6 F Pulse Rate 86 71 Respiratory Rate 16 11 L Blood Pressure 185/83 H 134/61 Pulse Oximetry 98 98 Oxygen Delivery Method Room Air 06/05/25 23:30 06/05/25 23:30 06/06/25 00:00 Temperature Pulse Rate 81 78 Respiratory Rate 22 24 Blood Pressure 151/68 H Pulse Oximetry 97 Oxygen Delivery Method 06/06/25 00:01 06/06/25 00:01 06/06/25 00:30 Temperature Pulse Rate 66 Respiratory Rate 14 Blood Pressure 145/67 H 121/59 L Pulse Oximetry 96 Oxygen Delivery Method 06/06/25 00:30 06/06/25 01:00 06/06/25 01:00 Temperature Pulse Rate 71 74 Respiratory Rate 17 17 Blood Pressure 137/62 Pulse Oximetry 96 94 Oxygen Delivery Method MDM - Chest Pain Medical Records Data Attestation: I reviewed the patient's medical records. Lab Data Attestation: I reviewed the patient's lab results. (Patient's CBC and CMP essentially unremarkable with a few minor abnormalities. Troponin negative. Urinalysis consistent with possible UTI.) 06/06/25 00:02 06/06/25 00:02 Labs: Lab Results 06/06/25 06/06/25 Range/Units 00:02 00:37 WBC 4.3 L (4.5-11.0) X10^3/uL RBC 5.00 (4.5-5.9) X10^6/uL Hgb 13.8 (13.5-17.5) g/dL Hct 41.0 (41-53) % MCV 82.0 (80-100) fL MCH 27.5 (26-34) PG MCHC 33.6 (30-36) % RDW 15.3 H (11.6-14.8) % Plt Count 146 L (150-400) X10^3/uL Neut % (Auto) 72.0 (50-75) % Lymph % (Auto) 18.2 L (25-40) % [place] % (Auto) 6.7 (3-14) % Eos % (Auto) 1.8 L (2-4) % Baso % (Auto) 1.3 (0-2) % Neut # (Auto) 3100 (4401-0470) /uL Lymph # (Auto) 800 L (4526-8871) /uL [place] # (Auto) 300 (0-900) /uL Eos # (Auto) 100 (0-450) /uL Baso # (Auto) 100 (0-100) /uL Sodium 139 (137-145) mmol/L Potassium 4.6 (3.4-5.1) mmol/L Chloride 102 (98-107) mmol/L Carbon Dioxide 31 (22-32) mmol/L BUN 12 (9-20) mg/dL Creatinine 0.68 (0.66-1.25) mg/dL Estimated GFR > 60 (>60) mL/min BUN/Creatinine Ratio 17.6 (6-22) Glucose 84 (70-99) mg/dL Calcium 9.1 (8.4-10.2) mg/dL Total Bilirubin 0.4 (0.2-1.3) mg/dL AST 31 (17-59) IU/L ALT 23 (<50) IU/L Alkaline Phosphatase 94 (38-126) U/L Total Creatine Kinase 186 H (55-170) U/L Troponin I < 0.012 (0.01-0.034) ng/mL Total Protein 8.0 (6.3-8.2) g/dL Albumin 4.3 (3.5-5.0) g/dL Globulin 3.7 (1.7-4.1) g/dL Albumin/Globulin Ratio 1.2 (1.0-2.8) Urine Color Yellow Urine Appearance Sl cloudy Urine pH 7.0 (4.5-8.0) Ur Specific [place] 1.015 (1.000-1.035) Urine Protein 1+ H (Negative) Urine Glucose (UA) Negative (Negative) g/dL Urine Ketones Negative (NEGATIVE) Urine Occult Blood 3+ H (Negative) Urine Nitrate Negative (Negative) Urine Bilirubin Negative (NEGATIVE) Urine Urobilinogen 0.2 (0.2) E.U./dL Ur Leukocyte Esterase 1+ H (NEGATIVE) Urine RBC 30-100/hpf H (0-5/HPF) Urine WBC 10-30/hpf H (0-5/HPF) Ur Squamous Epith Cells 0-1 /hpf (0-5/HPF) Urine Bacteria Few (2-10) H (None) Hyaline Casts 0-1/lpf (None) Urine Mucus 1+ H (Negative) Ur Culture Indicated? Specimen cultured Vol Urine Centrifuged 10ml (spun) Imaging Data Chest x-ray: Attestation: I personally reviewed and interpreted this imaging study as follows: My Impression: No acute disease ECG Data Attestation: I personally reviewed and interpreted this ECG as follows: (Normal sinus rhythm. Rate 76. No ischemic changes. Normal axis and intervals.) [facility] Narrative Medical decision making narrative: Patient has right-sided chest wall pain with negative cardiac workup. Has urinalysis consistent with possible UTI. Also a pressure ulcer on the sole of the left foot which does not appear infected. Plan will be Bactrim DS for UTI. Urine culture sent. Dressing placed on the pressure ulcer and patient is to follow up closely with his provider to reassess this. May need wound care referral and management of avoiding pressure ulcers. Discharge Plan Departure Patient Disposition: Home Clinical Impression: Bacteriuria with pyuria, Chest wall pain, Pressure ulcer of foot Instructions: How to Prevent Pressure Ulcers, Urinary Tract Infection, Pressure Injuries, DI for Atypical Chest Pain Activity Restrictions/Additional Instructions: Plan: Bactrim DS x7 days. Referral to Wound Care Clinic for pressure ulcer on the left foot. Follow up closely with your provider to address all health problems and to discuss avoiding pressure ulcers. Prescriptions: New sulfamethoxazole-trimethoprim [Bactrim DS] 800-160 mg tablet 1 tab PO BID 7 Days Qty: 14 0RF No Action silver sulfadiazine [Silvadene] 1 % cream 1 applic topical DAILY Qty: 400 0RF Rx Instructions: apply a 1.5 mm thickness cephalexin 500 mg capsule 500 mg PO Q6H Qty: 20 0RF Referrals: Miscellaneous,DoctorMD [Primary Care Provider, Medical] Stand Alone Forms: Patient Portal/API
--- NOTE | 2025-06-05 22:55 | DI.RAD.S_ITS ---
PROCEDURE: XR CHEST 1V INDICATIONS: chest pain TECHNIQUE: One view of the chest was acquired. COMPARISON: [facility], CR, XR CHEST 1V, 09/04/2023, 1:43. [facility], CR, XR CHEST 1V, 05/14/2022, 6:29. FINDINGS: Surgical changes and devices: Median sternotomy wires. Aortic stent. Lungs and pleura: Lungs are clear. No pleural effusions or pneumothorax. Mediastinum: Mediastinal contours appear normal. Heart size is normal. Bones and chest wall: No suspicious bony lesions. Overlying soft tissues appear unremarkable. IMPRESSION: No acute cardiopulmonary abnormality is seen. Dictated by: Ramo Weber M.D. on 06/05/2025 at 23:12 Approved by: Ramo Weber M.D. on 06/05/2025 at 23:12
[2025-06-05 23:00] VITALS: BP 134/61; PULSE 71; RESP 11; O2SAT 98
[2025-06-05 23:30] VITALS: BP 151/68; PULSE 81; RESP 22
[2025-06-06] VITALS: PULSE 78; RESP 24; O2SAT 97
[2025-06-06 00:01] VITALS: BP 145/67; PULSE 66; RESP 14; O2SAT 96
[2025-06-06] MEDS: SODIUM CHLORIDE 0.9% 1,000 ML 150 ML IV (00:01)
[2025-06-06 00:30] VITALS: BP 121/59; PULSE 71; RESP 17; O2SAT 96
[2025-06-06 00:35] LABS: Add Manual Diff / Slide Review NO; Hematocrit 41.0 % (41-53); Hemoglobin 13.8 g/dL (13.5-17.5); Lymphocytes Absolute Auto 800 /uL (1100-4500); Mean Corpuscular HGB Conc 33.6 % (30-36); Mean Corpuscular Hemoglobin 27.5 PG (26-34); Mean Corpuscular Volume 82.0 fL (80-100); Platelet Count 146 X10^3/uL (150-400)
[2025-06-06 00:42] LABS: Bilirubin Urine UA NEGATIVE (NEGATIVE); Color Urine UA YELLOW; Glucose Urine UA NEGATIVE (Negative); Ketones Urine UA NEGATIVE (NEGATIVE); Leukocyte Esterase Urine UA 1+ (NEGATIVE); Nitrite Urine UA NEGATIVE (Negative); Occult Blood Urine UA 3+ (Negative); Protein Urine UA 1+ (Negative); Specific Gravity Urine UA 1.015 (1.000-1.035); Urobilinogen Urine UA 0.2 E.U./dL (0.2); pH Urine UA 7.0 (4.5-8.0)
[2025-06-06 00:43] LABS: Alanine Aminotransferase 23 IU/L (<50); Albumin 4.3 g/dL (3.5-5.0); Albumin Globulin Ratio 1.2 (1.0-2.8); Alkaline Phosphatase 94 U/L (38-126); Blood Urea Nitrogen 12 mg/dL (9-20); Calcium 9.1 mg/dL (8.4-10.2); Carbon Dioxide 31 mmol/L (22-32); Chloride 102 mmol/L (98-107); Creatine Kinase 186 U/L (55-170); Estimated Glomerular Filt Rate > 60 mL/min (>60); Globulin 3.7 g/dL (1.7-4.1); Glucose 84 mg/dL (70-99); HEMOLYSIS < 15 (0-50); Potassium 4.6 mmol/L (3.4-5.1); Sodium 139 mmol/L (137-145); Total Protein 8.0 g/dL (6.3-8.2)
[2025-06-06 00:48] LABS: Appearance Urine UA SL CLOUDY
[2025-06-06 00:51] LABS: Culture Indicated Urine Specimen Cultured
[2025-06-06 00:55] LABS: Troponin I < 0.012 ng/mL (0.01-0.034)
[2025-06-06 01:00] VITALS: BP 137/62; PULSE 74; RESP 17; O2SAT 94
[2025-06-06] MEDS: TRIMETH/SULFA 160/800 (DS) TABLET 1 TAB PO (01:30)
== END 2025-06-06 01:56 | disposition home or self-care (01) ==
PROVIDERS: Emergency Provider Emergency Medicine
DX: R82.71 Bacteriuria (principal); R82.81 Pyuria; R07.89 Other chest pain; L89.899 Pressure ulcer of other site, unspecified stage; Z95.2 Presence of prosthetic heart valve
CPT/HCPCS: 36415; 71045; 80053; 81001; 82550; 84484; 85025; 87077; 87086; 87186; 93005; 96360; 96361; 99284

== ENCOUNTER 2025-07-16 02:37 | Emergency (ER) | payer OTHER, MEDICAID, SELFPAY ==
[2022-05-14 07:08] VITALS: RESP 20
--- NOTE | 2025-07-16 02:54 | ED.GENADULT ---
HPI - General Adult General Chief complaint: GI Bleed Stated complaint: Blood In Stool/Urine Time Seen by Provider: 07/16/25 02:49 History of Present Illness HPI narrative: 39-year-old male with a history of an aortic dissection status post repair and subsequent T5 paraplegia, ileostomy after colon was removed and also has a suprapubic catheter with recurrent bladder infections comes in with a little bit of blood in his catheter bag that started yesterday. Patient also had a 1 time slightly bloody stool in his ileostomy bag. The ileostomy bag no longer shows any blood at all. Patient denies any fever chills or pain anywhere. Patient does have some chronic chest pain due to his aortic dissection repair. Last urine culture showed raoultella planticola and was sensistive to Augmentin, tetracycline and Macrobid. It was resistant to ampicillin. Related Data Previous Rx's ?Medication ?Instructions ?Recorded cephalexin 500 mg capsule 500 mg PO Q6H #20 caps 01/04/25 silver sulfadiazine 1 % topical 1 applic topical DAILY #400 grams 01/04/25 cream (Silvadene) amoxicillin 875 mg-potassium 1 tab PO BID 7 days #14 tabs 07/16/25 clavulanate 125 mg tablet Allergies Allergy/AdvReac Type Severity Reaction Status Date / Time oxycodone AdvReac Verified 07/16/25 02:55 tramadol AdvReac Verified 07/16/25 02:55 Review of Systems Review of Systems ROS Unobtainable: All systems reviewed & are unremarkable except as noted in HPI and below Patient History Medical History (Updated 07/16/25 @ 05:01 by Lars Mann MD) Aortic dissection Exam Narrative Exam Narrative: General: Patient appears to be in no acute distress, acting appropriately Head: normocephalic, atraumatic, HEENT: Pupils equal round reactive, eyes tracking well, neck supple, no JVD Heart: regular rate and rhythm, no murmurs, rubs, or gallops heard Lungs: clear to auscultation, no adventitious sounds Abdomen: suprapubic catheter in place, no sign of infection around site, ileostomy bag shows no blood in stool and ostomy site looks clean Neurological: lower ext weakness at baseline Psych: good judgment ,good insight, mood is normal. Initial Vital Signs Initial Vital Signs: Vital Signs Temperature 98.4 F 07/16/25 02:55 Pulse Rate 83 07/16/25 02:55 Respiratory Rate 16 07/16/25 02:55 Blood Pressure 151/67 H 07/16/25 02:55 Pulse Oximetry 98 07/16/25 02:55 Oxygen Delivery Method Room Air 07/16/25 02:55 Course Orders Ordered: ED Orders 07/16/25 03:13 Urinalysis and Microscopic Stat 07/16/25 04:00 Urine Culture Stat Discontinued Medications Amoxicillin/Clavulanate Potassium (Amoxicillin/Clav 875/125 Mg) 1 tab PO NOW ONE Stop: 07/16/25 04:59 Reevaluation(s) Reevaluation #1: Upon evaluation, patient is resting comfortably. Vital Signs Vital signs: Vital Signs - 8 hr 07/16/25 02:55 Temperature 98.4 F Pulse Rate 83 Respiratory Rate 16 Blood Pressure 151/67 H Pulse Oximetry 98 Oxygen Delivery Method Room Air Medical Decision Making Lab Data Labs: Lab Results 07/16/25 Range/Units 04:00 Urine Color Yellow Urine Appearance Cloudy Urine pH 5.5 (4.5-8.0) Ur Specific [place] >=1.030 H (1.000-1.035) Urine Protein 1+ H (Negative) Urine Glucose (UA) Negative (Negative) g/dL Urine Ketones Negative (NEGATIVE) Urine Occult Blood 3+ H (Negative) Urine Nitrate Positive H (Negative) Urine Bilirubin Negative (NEGATIVE) Urine Urobilinogen 0.2 (0.2) E.U./dL Ur Leukocyte Esterase 2+ H (NEGATIVE) Urine RBC 10-30/hpf H (0-5/HPF) Urine WBC 10-30/hpf H (0-5/HPF) Ur Squamous Epith Cells 0-1 /hpf (0-5/HPF) Urine Bacteria Many (>30) H (None) Urine Mucus 2+ H (Negative) Ur Culture Indicated? Specimen cultured Vol Urine Centrifuged 10ml (spun) MDM Narrative Medical decision making narrative: 39-year-old male with a history of an ascending thoracic aortic aneurysm and aortic valve replacement 3 years ago with anesthesia complications that resulted in ischemia of his spinal cord resulting in a T5 paraplegia as well as ischemic bowel resulting in a bowel resection and colostomy presents with some hematuria in his catheter bag. Patient is found to have an acute UTI. He has had several UTIs in the past. His latest urine culture grew Raoultella planticola and was sensitive to Augmentin so we will use Augmentin again. Advised to follow up in a couple of days if urine not clearing up. Discharge Plan Departure Patient Disposition: Home Clinical Impression: Acute UTI Instructions: DI for Urinary Tract Infection (UTI) Activity Restrictions/Additional Instructions: Take antibiotics as prescribed. If they are still blood in the catheter bag 2 days later, please come on back for another evaluation or can see a urologist as well. Prescriptions: New amoxicillin-pot clavulanate 875-125 mg tablet 1 tab PO BID 7 Days Qty: 14 0RF No Action silver sulfadiazine [Silvadene] 1 % cream 1 applic topical DAILY Qty: 400 0RF Rx Instructions: apply a 1.5 mm thickness cephalexin 500 mg capsule 500 mg PO Q6H Qty: 20 0RF Stand Alone Forms: Patient Portal/API
[2025-07-16 02:55] VITALS: BP 151/67; PULSE 83; RESP 16; TEMP 36.9; O2SAT 98; BMI 23.6
[2025-07-16 04:40] LABS: Appearance Urine UA CLOUDY; Bilirubin Urine UA NEGATIVE (NEGATIVE); Color Urine UA YELLOW; Glucose Urine UA NEGATIVE (Negative); Ketones Urine UA NEGATIVE (NEGATIVE); Leukocyte Esterase Urine UA 2+ (NEGATIVE); Nitrite Urine UA POSITIVE (Negative); Occult Blood Urine UA 3+ (Negative); Protein Urine UA 1+ (Negative); Specific Gravity Urine UA >=1.030 (1.000-1.035); Urobilinogen Urine UA 0.2 E.U./dL (0.2); pH Urine UA 5.5 (4.5-8.0)
[2025-07-16 04:47] LABS: Culture Indicated Urine Specimen Cultured
[2025-07-16] MEDS: AMOXICILLIN/CLAV 875/125 MG 1 TAB PO (05:06)
[2025-07-16 05:13] VITALS: BP 139/63; PULSE 64; RESP 16; O2SAT 99
== END 2025-07-16 05:22 | disposition home or self-care (01) ==
PROVIDERS: Emergency Provider Family Medicine
DX: N39.0 Urinary tract infection, site not specified (principal); Z86.79 Personal history of other diseases of the circulatory system; Z95.2 Presence of prosthetic heart valve
CPT/HCPCS: 81001; 87077; 87086; 87186; 99283

== ENCOUNTER 2025-08-17 22:47 | Emergency (ER) | payer OTHER, MEDICAID, MEDICARE, SELFPAY ==
[2022-05-14 07:08] VITALS: RESP 20
[2025-08-17 22:57] VITALS: BP 189/86; PULSE 79; RESP 17; TEMP 36.6; O2SAT 99
--- NOTE | 2025-08-17 23:02 | ED_ITS ---
HPI - Male Genitourinary General Chief complaint: Urogenital-Male Stated complaint: Blood in urine, dehydration Time Seen by Provider: 08/17/25 22:55 Source: patient Mode of arrival: Wheelchair History of Present Illness HPI Narrative: 40-year-old male patient with a history of aortic dissection resulting in spinal cord ischemia and T5 paraplegia along with large bowel infarction and colectomy with an ileostomy. He also has suprapubic catheter for neurogenic bladder. He was replacing his catheter at 1:00 p.m. and felt some resistance to the balloon and then later saw some blood in his urine and has had brown in his urine since then. He has had a hard time hydrating. No fever chills or other complaint. Related Data Home Medications ?Medication ?Instructions ?Recorded ?Confirmed amlodipine 10 mg tablet 10 mg PO DAILY 07/26/2507/05 carvedilol 25 mg tablet 25 mg PO BID 07/26/25 Previous Rx's ?Medication ?Instructions ?Recorded silver sulfadiazine 1 % topical 1 applic topical DAILY #400 grams 01/04/25 cream (Silvadene) Allergies Allergy/AdvReac Type Severity Reaction Status Date / Time oxycodone AdvReac Verified 08/17/25 22:57 tramadol AdvReac Verified 08/17/25 22:57 Review of Systems Review of Systems ROS Unobtainable: All systems reviewed & are unremarkable except as noted in HPI and below Genitourinary Genitourinary: Reports as per HPI Patient History Medical History (Updated 08/18/25 @ 00:56 by Timothy Nye MD) Aortic dissection (05/14/22) Spinal cord infarction (~05/23/22) Ischemic colon (05/26/22) Stroke (05/23/22) Surgical History (Updated 07/26/25 @ 17:24 by Chuck Gaines MD) 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) History of aortic valve replacement (05/14/22) S/P right colectomy (05/25/22) S/P ileostomy (05/26/22) [place] teeth removed Social History marital status: unmarried,single 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 No distress. Appears well nourished and well hydrated Lungs: Clear to auscultation with good air movement. No wheezing, rales or rhonchi. No respiratory distress Cardiac: Regular rate and rhythm with no appreciable murmur or gallop Abdomen: Soft, nontender with no distention or masses. Normal bowel sounds. No rebound or guarding Neuro: Alert and oriented. Cranial nerves, Skin: Warm and normal color. No rashes Psychological: Normal affect and interaction. No evidence of delusion or psychosis. Normal mood. Initial Vital Signs Initial Vital Signs: Vital Signs Temperature 97.9 F 08/17/25 22:57 Pulse Rate 79 08/17/25 22:57 Respiratory Rate 17 08/17/25 22:57 Blood Pressure 189/86 H 08/17/25 22:57 Pulse Oximetry 99 08/17/25 22:57 Oxygen Delivery Method Room Air 08/17/25 22:57 Course Orders Ordered: ED Orders 08/17/25 23:14 BMP [Basic Metabolic Panel] Stat CBC Auto Diff [Complete Blood Count AUTO DIFF] Stat 08/17/25 23:51 Urinalysis and Microscopic Stat Urine Culture Stat Discontinued Medications Sodium Chloride (Normal Saline 0.9%) 1,000 mls @ 1,000 mls/hr IV BOLUS ONE Stop: 08/18/25 00:07 Last Infusion: 08/18/25 01:24 Dose: Infused Documented By: Admin: 08/17/25 23:38 Dose: 1,000 mls/hr Documented By: ZAKI Ceftriaxone Sodium 1,000 mg/ (Sodium Chloride) 100 mls @ 200 mls/hr IV NOW ONE Stop: 08/18/25 00:48 Vital Signs Vital signs: Vital Signs - 8 hr 08/17/25 22:57 08/18/25 01:25 Temperature 97.9 F Pulse Rate 79 68 Respiratory Rate 17 16 Blood Pressure 189/86 H 141/67 H Pulse Oximetry 99 98 Oxygen Delivery Method Room Air Room Air MDM - Male Genitourinary Lab Data Attestation: I reviewed the patient's lab results. 08/17/25 23:14 08/17/25 23:14 Labs: Lab Results 08/17/25 08/17/25 Range/Units 23:14 23:51 WBC 6.3 (4.5-11.0) X10^3/uL RBC 5.11 (4.5-5.9) X10^6/uL Hgb 14.2 (13.5-17.5) g/dL Hct 41.7 (41-53) % MCV 81.5 (80-100) fL MCH 27.8 (26-34) PG MCHC 34.1 (30-36) % RDW 14.5 (11.6-14.8) % Plt Count 129 L (150-400) X10^3/uL Neut % (Auto) 81.5 H (50-75) % Lymph % (Auto) 8.6 L (25-40) % [place] % (Auto) 4.1 (3-14) % Eos % (Auto) 2.7 (2-4) % Baso % (Auto) 3.1 H (0-2) % Neut # (Auto) 5100 (7803-4747) /uL Lymph # (Auto) 500 L (0872-1897) /uL [place] # (Auto) 300 (0-900) /uL Eos # (Auto) 200 (0-450) /uL Baso # (Auto) 200 H (0-100) /uL Sodium 142 (137-145) mmol/L Potassium 4.2 (3.4-5.1) mmol/L Chloride 103 (98-107) mmol/L Carbon Dioxide 30 (22-32) mmol/L BUN 9 (9-20) mg/dL Creatinine 0.53 L (0.66-1.25) mg/dL Estimated GFR > 60 (>60) mL/min BUN/Creatinine Ratio 17.0 (6-22) Glucose 88 (70-99) mg/dL Calcium 8.7 (8.4-10.2) mg/dL Urine Color Brown Urine Appearance Turbid Urine pH 5.5 (4.5-8.0) Ur Specific [place] 1.025 (1.000-1.035) Urine Protein 2+ H (Negative) Urine Glucose (UA) Negative (Negative) g/dL Urine Ketones Negative (NEGATIVE) Urine Occult Blood 3+ H (Negative) Urine Nitrate Positive H (Negative) Urine Bilirubin Negative (NEGATIVE) Urine Urobilinogen 0.2 (0.2) E.U./dL Ur Leukocyte Esterase 1+ H (NEGATIVE) Urine RBC >100/hpf H (0-5/HPF) Urine WBC 30-100/hpf H (0-5/HPF) Ur Squamous Epith Cells 1-5 /hpf (0-5/HPF) Urine Bacteria Many (>30) H (None) Ur Culture Indicated? Specimen cultured Vol Urine Centrifuged 10ml (spun) MDM Narrative Medical decision making narrative: Patient had possible traumatic catheterization with blood in his urine but stable vital signs and hemoglobin and hematocrit. I do not believe he needs admission or emergent urology intervention. He has contaminated urine which he always has. He is asking to avoid antibiotics until the culture is back. I think that is reasonable given he has no constitutional symptoms or abnormalities on his labs otherwise. He has been on several courses of antibiotics. I believe it is reasonable to wait for the culture and discussion with his doctor and Urology on Tuesday, 36 hours from now regarding antibiotic use. Also if he has persistent hematuria he may need Urology consultation for assessment of his bladder. He knows to return to the ER for any worsening symptoms either of hematuria or infection such as fever, tachycardia or low blood pressure. Discharge Plan Departure Patient Disposition: Home Clinical Impression: Hematuria, Bacteriuria with pyuria Instructions: DI for Hematuria Activity Restrictions/Additional Instructions: Assessment: Hematuria along with contaminated urine versus UTI Plan: Hydration and supportive care. Urine sent for culture. Monitor urine output and return to the ER if worse. Otherwise, contact your provider Tuesday for reassessment. If hematuria persists, we will probably need Urology consultation. If urine culture is positive we will probably need antibiotics. Make sure your doctor follows up on the urine culture. Prescriptions: No Action carvedilol 25 mg tablet 25 mg PO BID amlodipine 10 mg tablet 10 mg PO DAILY silver sulfadiazine [Silvadene] 1 % cream 1 applic topical DAILY Qty: 400 0RF Rx Instructions: apply a 1.5 mm thickness Referrals: Chuck Gaines MD [Primary Care Provider, Family Practice] Stand Alone Forms: Patient Portal/API
[2025-08-17 23:27] LABS: Add Manual Diff / Slide Review NO; Hematocrit 41.7 % (41-53); Hemoglobin 14.2 g/dL (13.5-17.5); Lymphocytes Absolute Auto 500 /uL (1100-4500); Mean Corpuscular HGB Conc 34.1 % (30-36); Mean Corpuscular Hemoglobin 27.8 PG (26-34); Mean Corpuscular Volume 81.5 fL (80-100); Platelet Count 129 X10^3/uL (150-400)
[2025-08-17 23:36] LABS: Blood Urea Nitrogen 9 mg/dL (9-20); Calcium 8.7 mg/dL (8.4-10.2); Carbon Dioxide 30 mmol/L (22-32); Chloride 103 mmol/L (98-107); Estimated Glomerular Filt Rate > 60 mL/min (>60); Glucose 88 mg/dL (70-99); HEMOLYSIS 23 (0-50); Potassium 4.2 mmol/L (3.4-5.1); Sodium 142 mmol/L (137-145)
[2025-08-17] MEDS: SODIUM CHLORIDE 0.9% 1,000 ML 1000 ML IV (23:38)
[2025-08-18 00:26] LABS: Bilirubin Urine UA NEGATIVE (NEGATIVE); Glucose Urine UA NEGATIVE (Negative); Ketones Urine UA NEGATIVE (NEGATIVE); Leukocyte Esterase Urine UA 1+ (NEGATIVE); Nitrite Urine UA POSITIVE (Negative); Occult Blood Urine UA 3+ (Negative); Protein Urine UA 2+ (Negative); Specific Gravity Urine UA 1.025 (1.000-1.035); Urobilinogen Urine UA 0.2 E.U./dL (0.2); pH Urine UA 5.5 (4.5-8.0)
[2025-08-18 00:27] LABS: Appearance Urine UA TURBID; Color Urine UA BROWN
[2025-08-18 00:29] LABS: Culture Indicated Urine Specimen Cultured
[2025-08-18 01:25] VITALS: BP 141/67; PULSE 68; RESP 16; O2SAT 98
== END 2025-08-18 01:31 | disposition home or self-care (01) ==
PROVIDERS: Emergency Provider Emergency Medicine; PCP Family Medicine
DX: R31.9 Hematuria, unspecified (principal); R82.71 Bacteriuria; R82.81 Pyuria; G82.20 Paraplegia, unspecified
CPT/HCPCS: 36415; 80048; 81001; 85025; 87077; 87086; 87186; 96360; 96361; 99284; J7030

== ENCOUNTER 2025-08-23 11:53 | Inpatient (IN) | payer OTHER, MEDICAID, SELFPAY ==
[2022-05-14 07:08] VITALS: RESP 20
[2025-08-23 12:03] VITALS: BP 138/63; PULSE 80; RESP 16; TEMP 36.6; O2SAT 100
--- NOTE | 2025-08-23 12:28 | ED.MALEGU ---
HPI - Male Genitourinary <Amy Recio PA-C - Last Filed: 08/23/25 17:59> General Chief complaint: Urogenital-Male Stated complaint: Per pt coming for 2 day antibiotics Time Seen by Provider: 08/23/25 12:20 Source: patient Mode of arrival: Ambulatory History of Present Illness HPI Narrative: Mr. 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 Patient was seen in the emergency department on 08/17/2025 after experiencing some resistance to his catheter balloon and blood-tinged urine. He had sensation of bladder discomfort and felt more fatigued and dehydrated than usual and was concerned he may have an acute UTI. Urine culture grew E coli and Klebsiella pneumonia which are only susceptible to meropenem, Zosyn or ertapenem. He received ceftriaxone during his last ED visit. Patient returns today and reports that he continues to feel UTI like symptoms such as bladder discomfort and fatigue, because of his history of paraplegia he does not experience UTI symptoms like most other patients. His suprapubic catheter is still draining clear yellow urine. He has not had any fevers, chills, chest pain, shortness of breath or other symptoms. He is not currently being evaluated by a urologist but does have an appointment in October, he does exchange his own suprapubic catheter once a month. Related Data Home Medications ?Medication ?Instructions ?Recorded ?Confirmed amlodipine 10 mg tablet 10 mg PO DAILY 07/26/25 08/23/25 carvedilol 25 mg tablet 25 mg PO BID 07/26/25 08/23/25 apixaban 5 mg tablet (Eliquis) 5 mg PO BID 08/23/25 08/23/25 apixaban 5 mg tablet (Eliquis) 5 mg PO BID Spinal cord injury 08/23/25 08/23/25 Allergies Allergy/AdvReac Type Severity Reaction Status Date / Time oxycodone AdvReac Verified 08/23/25 12:03 tramadol AdvReac Verified 08/23/25 12:03 Review of Systems <Amy Recio PA-C - Last Filed: 08/23/25 17:59> Review of Systems ROS Unobtainable: All systems reviewed & are unremarkable except as noted in HPI and below Patient History <Amy Recio PA-C - Last Filed: 08/23/25 17:59> Medical History Aortic dissection (05/14/22) Spinal cord infarction (~05/23/22) Ischemic colon (05/26/22) Stroke (05/23/22) Surgical History 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 Well-developed patient, in no acute distress. HEAD: Atraumatic. Normocephalic. EYES: No scleral icterus. No injection or drainage. NECK: Trachea midline. Cervical ROM intact. CARDIOVASCULAR: Regular rate and rhythm. RESPIRATORY: ?Nonlabored respirations. ?Speaking in clear, full sentences. ?Clear to auscultation. Breath sounds equal bilaterally. No wheezes, rales, or rhonchi. ? GASTROINTESTINAL: Ileostomy and suprapubic catheter present. Site surrounding suprapubic catheter looks well with no erythema or drainage. He has sensation to around the base of his sternum only. Abdomen is nondistended. NEURO: AOx3. Clear speech. T5 paraplegia, uses wheelchair independently. SKIN: No rash or erythema of visible areas. Prior ross bilateral hips with scarring. Initial Vital Signs Initial Vital Signs: Vital Signs Temperature 97.9 F 08/23/25 12:03 Pulse Rate 80 08/23/25 12:03 Respiratory Rate 16 08/23/25 12:03 Blood Pressure 138/63 08/23/25 12:03 Pulse Oximetry 100 08/23/25 12:03 Oxygen Delivery Method Room Air 08/23/25 12:03 <Kushal Pappas MD - Last Filed: 08/24/25 07:10> Initial Vital Signs Initial Vital Signs: Vital Signs Temperature 97.9 F 08/23/25 12:03 Pulse Rate 80 08/23/25 12:03 Respiratory Rate 16 08/23/25 12:03 Blood Pressure 138/63 08/23/25 12:03 Pulse Oximetry 100 08/23/25 12:03 Oxygen Delivery Method Room Air 08/23/25 12:03 Course <Amy Recio PA-C - Last Filed: 08/23/25 17:59> Orders Ordered: Acetaminophen (Acetaminophen 325 Mg Tablet) 650 mg PO Q6H PRN PRN Reason: Fever/Mild Pain (1-3) Amlodipine Besylate (Amlodipine 5 Mg Tablet) 10 mg PO DAILY [facility] Apixaban (Apixaban 5 Mg Tablet) 5 mg PO BID [facility] Last Admin: 08/23/25 21:08 Dose: 5 mg Documented By: KARSON Carvedilol (Carvedilol 12.5 Mg Tablet) 25 mg PO BID [facility] Last Admin: 08/23/25 21:08 Dose: 25 mg Documented By: KARSON Ertapenem 1 gm/ Sodium (Chloride) 100 mls @ 200 mls/hr IV Q24H [facility] Last Infusion: 08/23/25 17:22 Dose: Infused Documented By: Infusion: 08/23/25 16:52 Dose: 200 mls/hr Documented By: Infusion: 08/23/25 16:45 Dose: 0 mls/hr Documented By: Admin: 08/23/25 16:45 Dose: 200 mls/hr Documented By: CTS Naloxone HCl (Naloxone 0.4 Mg/Ml Vial) 0.2 mg IV Q2MIN PRN PRN Reason: Opiate Reversal Ondansetron HCl (Ondansetron 4 Mg/2 Ml Inj) 4 mg IV Q8HR PRN PRN Reason: Nausea And Vomiting Silver Sulfadiazine (Silver Sulfadiazine 1% Cream 25 Gm) 1 applic TOP DAILY [facility] Sodium Chloride (Sodium Chloride 0.9% Flush) 10 ml IV PRN PRN PRN Reason: Flush Sodium Chloride (Sodium Chloride 0.9% Flush) 10 ml IV BID [facility] Vital Signs Vital signs: Vital Signs - 8 hr 08/23/25 12:03 Temperature 97.9 F Pulse Rate 80 Respiratory Rate 16 Blood Pressure 138/63 Pulse Oximetry 100 Oxygen Delivery Method Room Air <Kushal Pappas MD - Last Filed: 08/24/25 07:10> Orders Ordered: Acetaminophen (Acetaminophen 325 Mg Tablet) 650 mg PO Q6H PRN PRN Reason: Fever/Mild Pain (1-3) Amlodipine Besylate (Amlodipine 5 Mg Tablet) 10 mg PO DAILY [facility] Apixaban (Apixaban 5 Mg Tablet) 5 mg PO BID [facility] Last Admin: 08/23/25 21:08 Dose: 5 mg Documented By: KARSON Carvedilol (Carvedilol 12.5 Mg Tablet) 25 mg PO BID [facility] Last Admin: 08/23/25 21:08 Dose: 25 mg Documented By: KARSON Ertapenem 1 gm/ Sodium (Chloride) 100 mls @ 200 mls/hr IV Q24H [facility] Last Infusion: 08/23/25 17:22 Dose: Infused Documented By: Infusion: 08/23/25 16:52 Dose: 200 mls/hr Documented By: Infusion: 08/23/25 16:45 Dose: 0 mls/hr Documented By: Admin: 08/23/25 16:45 Dose: 200 mls/hr Documented By: BREN Naloxone HCl (Naloxone 0.4 Mg/Ml Vial) 0.2 mg IV Q2MIN PRN PRN Reason: Opiate Reversal Ondansetron HCl (Ondansetron 4 Mg/2 Ml Inj) 4 mg IV Q8HR PRN PRN Reason: Nausea And Vomiting Silver Sulfadiazine (Silver Sulfadiazine 1% Cream 25 Gm) 1 applic TOP DAILY [facility] Sodium Chloride (Sodium Chloride 0.9% Flush) 10 ml IV PRN PRN PRN Reason: Flush Sodium Chloride (Sodium Chloride 0.9% Flush) 10 ml IV BID [facility] Vital Signs Vital signs: Vital Signs - 8 hr 08/23/25 12:03 Temperature 97.9 F Pulse Rate 80 Respiratory Rate 16 Blood Pressure 138/63 Pulse Oximetry 100 Oxygen Delivery Method Room Air MDM - Male Genitourinary <Amy Recio PA-C - Last Filed: 08/23/25 17:59> Medical Records Attestation: I reviewed the patient's medical records. Lab Data 08/24/25 06:00 08/24/25 06:00 Labs: Lab Results 08/23/25 Range/Units 12:10 WBC 4.6 (4.5-11.0) X10^3/uL RBC 4.76 (4.5-5.9) X10^6/uL Hgb 13.3 L (13.5-17.5) g/dL Hct 39.3 L (41-53) % MCV 82.5 (80-100) fL MCH 27.8 (26-34) PG MCHC 33.7 (30-36) % RDW 14.8 (11.6-14.8) % Plt Count 136 L (150-400) X10^3/uL Neut % (Auto) 76.7 H (50-75) % Lymph % (Auto) 14.0 L (25-40) % [place] % (Auto) 8.1 (3-14) % Eos % (Auto) 0.8 L (2-4) % Baso % (Auto) 0.4 (0-2) % Neut # (Auto) 3600 (0768-2735) /uL Lymph # (Auto) 600 L (5380-3727) /uL [place] # (Auto) 400 (0-900) /uL Eos # (Auto) 0 (0-450) /uL Baso # (Auto) 0 (0-100) /uL Sodium 144 (137-145) mmol/L Potassium 4.1 (3.4-5.1) mmol/L Chloride 106 (98-107) mmol/L Carbon Dioxide 29 (22-32) mmol/L BUN 10 (9-20) mg/dL Creatinine 0.94 (0.66-1.25) mg/dL Estimated GFR > 60 (>60) mL/min BUN/Creatinine Ratio 10.6 (6-22) Glucose 85 (70-99) mg/dL Lactate 1.3 (0.7-2.1) mmol/L Calcium 8.5 (8.4-10.2) mg/dL Total Bilirubin 0.5 (0.2-1.3) mg/dL AST 27 (17-59) IU/L ALT 20 (<50) IU/L Alkaline Phosphatase 108 (38-126) U/L Total Protein 7.7 (6.3-8.2) g/dL Albumin 4.1 (3.5-5.0) g/dL Globulin 3.6 (1.7-4.1) g/dL Albumin/Globulin Ratio 1.1 (1.0-2.8) Imaging Data CT scan - abdomen/pelvis: Radiologist's Impression: PROCEDURE: CT ABDOMEN PELVIS W CON INDICATIONS: UTI, suprapubic cath, T5 paraplegic TECHNIQUE: After the administration of intravenous contrast, axial sections acquired from the lung bases to the pubic symphysis. Coronal and sagittal reformats were performed. For radiation dose reduction, the following was used: automated exposure control, adjustment of mA and/or kV according to patient size. COMPARISON: [facility], CT, CT CHEST ABDOMEN PELVIS WITH CONTRAST, 06/24/2024, 4:25. FINDINGS: Image quality: Diagnostic. Lower Chest: Note is made of a previously documented stable appearing descending thoracic aortic dissection traversing into the abdominal aorta also without change in that area. Mild alveolar consolidation is present the medial posterior right lower lobe, and linear atelectasis or mild consolidation is seen within the lingular segment area of the left upper lobe near the left ventricular apex. ABDOMEN: Liver: No solid mass. Gallbladder: The gallbladder is not fluid-filled and is difficult to fully visualize. A lesser degree of gallbladder contraction was present on CT scanning 06/24/24. No definite inflammation in this area. Biliary ducts: No biliary dilation. Pancreas: No ductal dilation. Spleen: Size is within normal limits. Adrenal Glands: No adrenal nodules. Kidneys and Ureters: No hydronephrosis. No solid mass. No complex renal cystic lesion which requires follow up. A punctate lower 3rd right renal collecting system calculus is nonobstructive. This was previously present. No segmental hypoperfusion of the renal cortex is present bilaterally that would indicate presence of focal pyelonephritis. Stomach and Bowel: Normal colonic caliber, without significant wall thickening. Peritoneum: No abnormal intraperitoneal fluid. No free air. Ventral Wall: No significant ventral hernia. Abdominal Nodes: No retroperitoneal or mesenteric adenopathy by size criteria. Vessels: Aorta and inferior vena cava are normal in size and the previous abdominal aortic dissection tracks into the left common iliac artery without aneurysm or extension of dissection visualized.. PELVIS: Pelvic Organs: Unremarkable. Bladder: The bladder appears contracted around a centrally position Castellon catheter that is suprapubic in access to the bladder lumen. Pelvic Nodes: No enlarged lymph nodes. Miscellaneous: No inguinal hernias are seen. Soft tissue thickening is seen adjacent to each hip, right greater than left, without clearly visualized evidence of osteomyelitis or decubitus ulceration. Bones: No aggressive osseous abnormality. IMPRESSION: 1. Single small nonobstructive calculus noted again at the lower 3rd collecting system of the right kidney. The renal cortex bilaterally shows no evidence of active pyelonephritis. 2. Note is made of a suprapubic catheter crossing into what appears to be a contracted bladder, without adjacent inflammatory change. 3. Mild focal alveolar infiltration at the medial posterior right lower lobe and in the lingular segment area of the left upper lobe. This could represent retention of pulmonary secretions or pneumonia. 4. Soft tissue thickening noted around the hip regions, right greater than left, but without evidence of overlying decubitus ulceration or underlying osteomyelitis or abscess formation. This may reflect prior inflammatory events in those areas. 5. Stable aortic dissection extending from the descending thoracic aorta through the abdominal aorta and tracking into the left common iliac artery without evidence of associated aneurysm or extension of dissection. Dictated by: Philipp Martinez M.D. on 08/23/2025 at 14:23 Approved by: Philipp Martinez M.D. 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 Patient was seen in the emergency department on 08/17/2025 after experiencing some resistance to his catheter balloon and blood-tinged urine. Urine culture grew E coli and Klebsiella pneumonia which are only susceptible to meropenem, Zosyn or ertapenem. 1524: Spoke with urologist Dr. Lemon. He does recommend treating patient given patient's concern/symptoms for acute UTI, patient should be admitted to the hospital service and Dr. Lemon will follow up as scheduled. Labs reveal normal WBC count 4.6, slightly decreased hemoglobin 13.3 hematocrit 39.3. Platelets 136. Normal BUN 10 creatinine 0.94, GFR greater than 60. CT reveals single small nonobstructing calculus noted again at the lower 3rd collecting system of the right kidney, no signs of active pyelonephritis. Note is made of a suprapubic catheter crossing into what appears to be contracted bladder without adjacent inflammatory change. There is mild focal alveolar infiltration at the medial posterior right lower lobe and the lingular segment of the left upper lobe, this could represent pulmonary secretions are pneumonia --patient is not currently experiencing upper respiratory symptoms, cough, shortness of breath. Note is made of soft tissue thickening around the hip regions, likely from prior ross to these area. He also has stable aortic dissection. 1550: Spoke with pt's PCP Dr. Gaines who agrees to admit the patient for IV antibiotics for acute UTI. We will order ertapenem 1 g Q 24 hours per pharmacy as this will be most easily dosed if and when patient is transitioned home. Patient feels comfortable and happy to exchange his suprapubic catheter, therefore we will exchange catheter and clamp to allow for collection of clean urine sample for repeat culture. Patient is aware and agreeable to admission and stable for transfer to the floor at this time. Urine sent to lab, ertapenem started. <Kushal Pappas MD - Last Filed: 08/24/25 07:10> Lab Data Labs: Lab Results 08/23/25 Range/Units 12:10 WBC 4.6 (4.5-11.0) X10^3/uL RBC 4.76 (4.5-5.9) X10^6/uL Hgb 13.3 L (13.5-17.5) g/dL Hct 39.3 L (41-53) % MCV 82.5 (80-100) fL MCH 27.8 (26-34) PG MCHC 33.7 (30-36) % RDW 14.8 (11.6-14.8) % Plt Count 136 L (150-400) X10^3/uL Neut % (Auto) 76.7 H (50-75) % Lymph % (Auto) 14.0 L (25-40) % [place] % (Auto) 8.1 (3-14) % Eos % (Auto) 0.8 L (2-4) % Baso % (Auto) 0.4 (0-2) % Neut # (Auto) 3600 (8945-8719) /uL Lymph # (Auto) 600 L (8888-7170) /uL [place] # (Auto) 400 (0-900) /uL Eos # (Auto) 0 (0-450) /uL Baso # (Auto) 0 (0-100) /uL Sodium 144 (137-145) mmol/L Potassium 4.1 (3.4-5.1) mmol/L Chloride 106 (98-107) mmol/L Carbon Dioxide 29 (22-32) mmol/L BUN 10 (9-20) mg/dL Creatinine 0.94 (0.66-1.25) mg/dL Estimated GFR > 60 (>60) mL/min BUN/Creatinine Ratio 10.6 (6-22) Glucose 85 (70-99) mg/dL Lactate 1.3 (0.7-2.1) mmol/L Calcium 8.5 (8.4-10.2) mg/dL Total Bilirubin 0.5 (0.2-1.3) mg/dL AST 27 (17-59) IU/L ALT 20 (<50) IU/L Alkaline Phosphatase 108 (38-126) U/L Total Protein 7.7 (6.3-8.2) g/dL Albumin 4.1 (3.5-5.0) g/dL Globulin 3.6 (1.7-4.1) g/dL Albumin/Globulin Ratio 1.1 (1.0-2.8) Discharge Plan Departure Patient Disposition: Admitted as Observation Clinical Impression: Acute UTI, History of suprapubic catheter Admit Date/Time: 08/23/25 15:51 Admit Provider: Chuck Gaines ED Sign-out <Kushal Pappas MD - Last Filed: 08/24/25 07:10> Cosign ED Attending Cosnaomiature Attestation: I was available for consultation during this patient's emergency department visit. This chart is signed by myself for administrative purposes only. I did not have direct contact with this patient during this visit. They were seen independently by the APC.
[2025-08-23 12:43] LABS: Add Manual Diff / Slide Review NO; Hematocrit 39.3 % (41-53); Hemoglobin 13.3 g/dL (13.5-17.5); Lymphocytes Absolute Auto 600 /uL (1100-4500); Mean Corpuscular HGB Conc 33.7 % (30-36); Mean Corpuscular Hemoglobin 27.8 PG (26-34); Mean Corpuscular Volume 82.5 fL (80-100); Platelet Count 136 X10^3/uL (150-400)
[2025-08-23 12:48] LABS: Alanine Aminotransferase 20 IU/L (<50); Albumin 4.1 g/dL (3.5-5.0); Albumin Globulin Ratio 1.1 (1.0-2.8); Alkaline Phosphatase 108 U/L (38-126); Blood Urea Nitrogen 10 mg/dL (9-20); Calcium 8.5 mg/dL (8.4-10.2); Carbon Dioxide 29 mmol/L (22-32); Chloride 106 mmol/L (98-107); Estimated Glomerular Filt Rate > 60 mL/min (>60); Globulin 3.6 g/dL (1.7-4.1); Glucose 85 mg/dL (70-99); HEMOLYSIS < 15 (0-50); Lactate (Lactic Acid) 1.3 mmol/L (0.7-2.1); Potassium 4.1 mmol/L (3.4-5.1); Sodium 144 mmol/L (137-145); Total Protein 7.7 g/dL (6.3-8.2)
--- NOTE | 2025-08-23 13:04 | DI.CT.S_ITS ---
PROCEDURE: CT ABDOMEN PELVIS W CON INDICATIONS: UTI, suprapubic cath, T5 paraplegic TECHNIQUE: After the administration of intravenous contrast, axial sections acquired from the lung bases to the pubic symphysis. Coronal and sagittal reformats were performed. For radiation dose reduction, the following was used: automated exposure control, adjustment of mA and/or kV according to patient size. COMPARISON: [facility], CT, CT CHEST ABDOMEN PELVIS WITH CONTRAST, 06/24/2024, 4:25. FINDINGS: Image quality: Diagnostic. Lower Chest: Note is made of a previously documented stable appearing descending thoracic aortic dissection traversing into the abdominal aorta also without change in that area. Mild alveolar consolidation is present the medial posterior right lower lobe, and linear atelectasis or mild consolidation is seen within the lingular segment area of the left upper lobe near the left ventricular apex. ABDOMEN: Liver: No solid mass. Gallbladder: The gallbladder is not fluid-filled and is difficult to fully visualize. A lesser degree of gallbladder contraction was present on CT scanning 06/24/24. No definite inflammation in this area. Biliary ducts: No biliary dilation. Pancreas: No ductal dilation. Spleen: Size is within normal limits. Adrenal Glands: No adrenal nodules. Kidneys and Ureters: No hydronephrosis. No solid mass. No complex renal cystic lesion which requires follow up. A punctate lower 3rd right renal collecting system calculus is nonobstructive. This was previously present. No segmental hypoperfusion of the renal cortex is present bilaterally that would indicate presence of focal pyelonephritis. Stomach and Bowel: Normal colonic caliber, without significant wall thickening. Peritoneum: No abnormal intraperitoneal fluid. No free air. Ventral Wall: No significant ventral hernia. Abdominal Nodes: No retroperitoneal or mesenteric adenopathy by size criteria. Vessels: Aorta and inferior vena cava are normal in size and the previous abdominal aortic dissection tracks into the left common iliac artery without aneurysm or extension of dissection visualized.. PELVIS: Pelvic Organs: Unremarkable. Bladder: The bladder appears contracted around a centrally position Castellon catheter that is suprapubic in access to the bladder lumen. Pelvic Nodes: No enlarged lymph nodes. Miscellaneous: No inguinal hernias are seen. Soft tissue thickening is seen adjacent to each hip, right greater than left, without clearly visualized evidence of osteomyelitis or decubitus ulceration. Bones: No aggressive osseous abnormality. IMPRESSION: 1. Single small nonobstructive calculus noted again at the lower 3rd collecting system of the right kidney. The renal cortex bilaterally shows no evidence of active pyelonephritis. 2. Note is made of a suprapubic catheter crossing into what appears to be a contracted bladder, without adjacent inflammatory change. 3. Mild focal alveolar infiltration at the medial posterior right lower lobe and in the lingular segment area of the left upper lobe. This could represent retention of pulmonary secretions or pneumonia. 4. Soft tissue thickening noted around the hip regions, right greater than left, but without evidence of overlying decubitus ulceration or underlying osteomyelitis or abscess formation. This may reflect prior inflammatory events in those areas. 5. Stable aortic dissection extending from the descending thoracic aorta through the abdominal aorta and tracking into the left common iliac artery without evidence of associated aneurysm or extension of dissection. Dictated by: Philipp Martinez M.D. on 08/23/2025 at 14:23 Approved by: Philipp Martinez M.D. on 08/23/2025 at 14:35
--- NOTE | 2025-08-23 16:35 | PC.NURSE ---
arrives for IV abx. T5 paraplegia and cannot feel bladder discomfort however tested + for klebsiella and ecoli on urine culture. Pt placed in rm 3. given sterile supplies. pt changed suprapubic cath himself and provided a clean sample. holding abx per SYLWIA Recio until UA completed due to previous urine sample at last visit being a non sterile sample.
[2025-08-23] MEDS: ERTAPENEM 1 GM in SODIUM CHLORIDE 0.9% 100 ML IV (16:45)
[2025-08-23 16:53] LABS: Appearance Urine UA SL CLOUDY; Bilirubin Urine UA NEGATIVE (NEGATIVE); Color Urine UA YELLOW; Glucose Urine UA NEGATIVE (Negative); Ketones Urine UA NEGATIVE (NEGATIVE); Leukocyte Esterase Urine UA 1+ (NEGATIVE); Nitrite Urine UA POSITIVE (Negative); Occult Blood Urine UA 3+ (Negative); Protein Urine UA TRACE (Negative); Specific Gravity Urine UA 1.010 (1.000-1.035); Urobilinogen Urine UA 0.2 E.U./dL (0.2); pH Urine UA 6.5 (4.5-8.0)
[2025-08-23 16:59] LABS: Culture Indicated Urine Specimen Cultured
[2025-08-23 17:15] VITALS: BP 163/83; PULSE 94; RESP 20; TEMP 36.3; O2SAT 98
[2025-08-23 17:28] VITALS: BMI 23.5
--- NOTE | 2025-08-23 18:33 | PM.HP.IH.1 ---
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 Patient presented to ER for IV antibiotics after being called due to recent urine culture revealing MDR infection. Patient initially seen in ER on 08/17 after experience some resistance to his catheter balloon and blood-tinged urine. Had sensation of bladder discomfort and has felt more fatigued and dehydrated over recent weeks which are typical symptoms of UTI for him. He was treated with a dose of ceftriaxone and discharged home while waiting for culture to result. Urine culture grew E coli and Klebsiella pneumoniae which are only susceptible to imipenem, piperacillin-tazobactam, or ertapenem. On re presentation today patient continues to endorse his typical UTI symptoms including bladder discomfort and fatigue. His suprapubic catheter is still draining clear yellow urine. Denies systemic symptoms such as fever, chills, chest pain. He exchanges his own suprapubic catheter monthly and is currently transitioning between urologists but does have an upcoming appointment with Dr. Lemon in October. ER evaluation notable for WBC 4.6, hemoglobin 13.3, chronic thrombocytopenia 136. UA with 3+ RBC, positive nitrate and leuk esterase, moderate bacteria. CT abdomen/pelvis shows persistent small nonobstructive calculus in right kidney collecting system without evidence of active pyelonephritis, suprapubic catheter in contact with bladder wall without adjacent inflammatory change, stable aortic dissection from descending thoracic aorta through abdominal aorta tracking into left common iliac without evidence of associated aneurysm or extension of dissection. 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) History of aortic valve replacement (05/14/22) S/P right colectomy (05/25/22) S/P ileostomy (05/26/22) [place] teeth removed Social History marital status: unmarried,single household members: none occupational status: student ([employer] through [employer]) Smoking Status: Never smoker alcohol intake: former substance use type: does not use Meds Home Medications and Allergies Home Medications ?Medication ?Instructions ?Recorded ?Confirmed ?Type silver sulfadiazine 1 % topical 1 applic topical DAILY #400 grams 01/04/25 08/23/25 Rx cream (Silvadene) amlodipine 10 mg tablet 10 mg PO DAILY 07/26/25 08/23/25 History carvedilol 25 mg tablet 25 mg PO BID 07/26/25 08/23/25 History apixaban 5 mg tablet (Eliquis) 5 mg PO BID 08/23/25 08/23/25 History apixaban 5 mg tablet (Eliquis) 5 mg PO BID Spinal cord injury 08/23/25 08/23/25 History Allergies Allergy/AdvReac Type Severity Reaction Status Date / Time oxycodone AdvReac Verified 08/23/25 12:03 tramadol AdvReac Verified 08/23/25 12:03 Review of Systems Review of Systems ROS: Yes All systems reviewed with the patient and are negative except as otherwise documented Exam Vital Signs (past 8 hours): - 08/23/25 12:03 Temperature 97.9 F Pulse Rate 80 Respiratory Rate 16 Blood Pressure 138/63 Pulse Oximetry 100 Oxygen Delivery Method Room Air Oxygen Delivery Method Room Air Narrative Exam Narrative: General: Pleasant, NAD HEENT: NC/AT, EOMI, moist membranes CV: RRR, normal S1-S2, no m/g/r Resp: CTAB, comfortable WOB Abd: Soft, NTND, +BS, ostomy bag in place Ext: No edema Skin: No rash or lesions noted Neuro: A&O x3, lower extremity paraplegia, no new focal deficits Objective Imaging CT A/P: Radiologist's impression: CT ABDOMEN PELVIS W CON FINDINGS: Image quality: Diagnostic. Lower Chest: Note is made of a previously documented stable appearing descending thoracic aortic dissection traversing into the abdominal aorta also without change in that area. Mild alveolar consolidation is present the medial posterior right lower lobe, and linear atelectasis or mild consolidation is seen within the lingular segment area of the left upper lobe near the left ventricular apex. ABDOMEN: Liver: No solid mass. Gallbladder: The gallbladder is not fluid-filled and is difficult to fully visualize. A lesser degree of gallbladder contraction was present on CT scanning 06/24/24. No definite inflammation in this area. Biliary ducts: No biliary dilation. Pancreas: No ductal dilation. Spleen: Size is within normal limits. Adrenal Glands: No adrenal nodules. Kidneys and Ureters: No hydronephrosis. No solid mass. No complex renal cystic lesion which requires follow up. A punctate lower 3rd right renal collecting system calculus is nonobstructive. This was previously present. No segmental hypoperfusion of the renal cortex is present bilaterally that would indicate presence of focal pyelonephritis. Stomach and Bowel: Normal colonic caliber, without significant wall thickening. Peritoneum: No abnormal intraperitoneal fluid. No free air. Ventral Wall: No significant ventral hernia. Abdominal Nodes: No retroperitoneal or mesenteric adenopathy by size criteria. Vessels: Aorta and inferior vena cava are normal in size and the previous abdominal aortic dissection tracks into the left common iliac artery without aneurysm or extension of dissection visualized.. PELVIS: Pelvic Organs: Unremarkable. Bladder: The bladder appears contracted around a centrally position Castellon catheter that is suprapubic in access to the bladder lumen. Pelvic Nodes: No enlarged lymph nodes. Miscellaneous: No inguinal hernias are seen. Soft tissue thickening is seen adjacent to each hip, right greater than left, without clearly visualized evidence of osteomyelitis or decubitus ulceration. Bones: No aggressive osseous abnormality. IMPRESSION: 1. Single small nonobstructive calculus noted again at the lower 3rd collecting system of the right kidney. The renal cortex bilaterally shows no evidence of active pyelonephritis. 2. Note is made of a suprapubic catheter crossing into what appears to be a contracted bladder, without adjacent inflammatory change. 3. Mild focal alveolar infiltration at the medial posterior right lower lobe and in the lingular segment area of the left upper lobe. This could represent retention of pulmonary secretions or pneumonia. 4. Soft tissue thickening noted around the hip regions, right greater than left, but without evidence of overlying decubitus ulceration or underlying osteomyelitis or abscess formation. This may reflect prior inflammatory events in those areas. 5. Stable aortic dissection extending from the descending thoracic aorta through the abdominal aorta and tracking into the left common iliac artery without evidence of associated aneurysm or extension of dissection. Dictated by: Philipp Martinez M.D. on 08/23/2025 at 14:23 Approved by: Philipp Martinez M.D. on 08/23/2025 at 14:35 Labs 08/23/25 12:10 08/23/25 12:10 Labs: Laboratory Results - last 24 hr 08/23/25 08/23/25 12:10 16:30 WBC 4.6 RBC 4.76 Hgb 13.3 L Hct 39.3 L MCV 82.5 MCH 27.8 MCHC 33.7 RDW 14.8 Plt Count 136 L Neut % (Auto) 76.7 H Lymph % (Auto) 14.0 L [place] % (Auto) 8.1 Eos % (Auto) 0.8 L Baso % (Auto) 0.4 Neut # (Auto) 3600 Lymph # (Auto) 600 L [place] # (Auto) 400 Eos # (Auto) 0 Baso # (Auto) 0 Sodium 144 Potassium 4.1 Chloride 106 Carbon Dioxide 29 BUN 10 Creatinine 0.94 Estimated GFR > 60 BUN/Creatinine Ratio 10.6 Glucose 85 Lactate 1.3 Calcium 8.5 Total Bilirubin 0.5 AST 27 ALT 20 Alkaline Phosphatase 108 Total Protein 7.7 Albumin 4.1 Globulin 3.6 Albumin/Globulin Ratio 1.1 Urine Color Yellow Urine Appearance Sl cloudy Urine pH 6.5 Ur Specific [place] 1.010 Urine Protein Trace H Urine Glucose (UA) Negative Urine Ketones Negative Urine Occult Blood 3+ H Urine Nitrate Positive H Urine Bilirubin Negative Urine Urobilinogen 0.2 Ur Leukocyte Esterase 1+ H Urine RBC 30-100/hpf H Urine WBC 5-10/hpf H Ur Squamous Epith Cells 0-1 /hpf Urine Bacteria Moderate (10-30) H Ur Culture Indicated? Specimen cultured Vol Urine Centrifuged 10ml (spun) Assessment & Plan Assessment and plan (1) Acute UTI: Status: Acute (2) Hypertension: Qualifiers: Hypertension type: primary hypertension Qualified Code(s): I10 - Essential (primary) hypertension Status: Acute (3) DVT (deep venous thrombosis): Problem details: Left femoral vein, originally discovered 07/2024 Qualifiers: DVT location: lower extremity Affected thrombotic vein of extremity: unspecified vein of extremity Chronicity: chronic Laterality: left Qualified Code(s): I82.502 - Chronic embolism and thrombosis of unspecified deep veins of left lower extremity Status: Acute (4) Chronic suprapubic catheter: Status: Acute Assessment & Plan narrative: 40-year-old male with complex medical history including 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 #MDR UTI #suprapubic catheter Recent urine culture grew E coli that is broadly sensitive, Klebsiella sensitive only to ertapenem, meropenem, pip/tazo. Normal white count and renal function, no evidence of systemic infection. CT shows single small nonobstructing calculus in right kidney without signs of pyelonephritis. Urology consulted from ER and recommends embedding/treating given patient's concern and symptoms for UTI. Suprapubic catheter clamped to collect clean sample for repeat culture prior to exchange. Will treat with ertapenem as this will be most easily dosed for outpatient treatment at time of discharge. -ertapenem 1 g Q 24h per pharmacy -f/u ucx #hypertension -home amlodipine, carvedilol #DVT Known thrombus in LLE. -home eliquis b.i.d. Dispo: acute care Diet: regular DVT ppx: eliquis Code: FULL PCP: Eder Time-Based Coding :: 35 minutes spent with patient and on the chart (including review of chart, obtaining history, exam, reviewing outside data, placing orders, documenting exam and treatment plan, and counseling patient) on 08/23/2025. [employer] P[employer] Header Document charge(s): Yes Charge Codes Initial inpatient/observation care: [id number]
--- NOTE | 2025-08-23 18:54 | PC.WOUNDPHOT ---
L thigh L foot L foot R baby toe blister
[2025-08-23 19:37] VITALS: BP 139/73; PULSE 80; RESP 18; TEMP 36.6; O2SAT 97
[2025-08-23] MEDS: APIXABAN 5 MG TABLET PO (21:08)
[2025-08-24 02:00] VITALS: BP 140/70; PULSE 84; RESP 18; TEMP 36.6; O2SAT 95
[2025-08-24 06:11] LABS: Add Manual Diff / Slide Review NO; Hematocrit 37.2 % (41-53); Hemoglobin 12.6 g/dL (13.5-17.5); Lymphocytes Absolute Auto 900 /uL (1100-4500); Mean Corpuscular HGB Conc 33.7 % (30-36); Mean Corpuscular Hemoglobin 27.6 PG (26-34); Mean Corpuscular Volume 82.0 fL (80-100); Platelet Count 145 X10^3/uL (150-400)
[2025-08-24 06:22] LABS: Blood Urea Nitrogen 20 mg/dL (9-20); Calcium 8.5 mg/dL (8.4-10.2); Carbon Dioxide 27 mmol/L (22-32); Chloride 107 mmol/L (98-107); Estimated Glomerular Filt Rate > 60 mL/min (>60); Glucose 94 mg/dL (70-99); HEMOLYSIS < 15 (0-50); Potassium 4.3 mmol/L (3.4-5.1); Sodium 140 mmol/L (137-145)
[2025-08-24 08:08] VITALS: BP 140/70; PULSE 84
[2025-08-24] MEDS: APIXABAN 5 MG TABLET PO ×2 (08:08→20:22)
[2025-08-24] MEDS: SODIUM CHLORIDE 0.9% FLUSH 10 ML IV ×2 (08:11→22:29)
--- NOTE | 2025-08-24 11:50 | CM.DANOTE ---
Initial DCP Assessment Note. Review EMR and PT Interview. Met with patient at bedside to discuss discharge needs.PT is alert x 4 sitting up in bed.. No acute distress. Wheelchair bound Independent with ADL's. Supra Pubic Catheter. Lives alone in a converted van Payor:??Gabriela [facility] PCP: Summary & Plan:?40 yo male arrived to via POV/WC ED c/o Supra Pubic Catheter malfunction and blood in urine. On abx for MDR UTI. PMH very complex. Plan: IV Abx for 2-3 days. Discharge with IV Ertapenem for an additional 1-[address] Griffin to determine length of infusion. Discharge Planning/Care Management CM Discharge Assessment Start: 08/23/25 16:40 Freq: Status: Active Protocol: Document 08/24/25 11:44 SM (Rec: 08/24/25 11:50 SM [id number]) Discharge Planning Assessment Assigned Discharge Leslie Mason RN CM [employer] Maintainer Provider Dr. Gaines Insurance [facility] Advance Directives? No History Provided By Patient Prior Living Other Arrangements Comment Converted Van Household Members none Type of Drives own vehicle transporation used prior to admit Independent with ADL Yes 's Is patient alert and Yes oriented? Caregiver for No Another DME Already Rented / Bath Bench,Wheelchair,Other Owned Comment supra pubic cath. Patient/Family Home with Home Health Preference Comment TBD. Infusion clinic potential. patient is able to drive himself to the Infusion clinic Barriers to Yes Discharge Comment Lives in a converted van Review Status In Process Please Provide Date 08/24/25 Initial DC Assessment Was Performed Next Review Type Continued Stay Review
[2025-08-24 12:00] VITALS: BP 136/71; PULSE 82; RESP 16; TEMP 36.6; O2SAT 96
--- NOTE | 2025-08-24 12:05 | CM.DPC ---
Addendum entered by Leslie Mason RN 08/24/25 15:33: Per [employer] Rep. call [phone] Tuesday to try to get Auth for OutPatient infusion. Addendum entered by Leslie Mason RN 08/24/25 12:35: CM left VM with Jamila S[facility] Informatics Educator. Patient's contact info provided. CM also gave patient an [employer] application, [employer] [facility]. Original Note: Barriers: housing challenged. Patient lives in a converted van. Patient is able to drive himself to an infusion clinic if need be. INS: HUM.
--- NOTE | 2025-08-24 12:50 | PM.PN.1 ---
Subjective Subjective Date Patient Seen: 08/24/25 Time Patient Seen: 12:50 Interval history: chief complaint urinary tract infection Pt reports still feeling bladder discomfort he has been on IV abx for one day however his sensation is obviously limited 2/2 spinal injury hx. In theory UTI should be sensitive to this med we shall see. He is highly motivated to go to school on Tuesday if possible will need to get outpt infusion plan set up for this he is housing challenged but mobile. Appetite is ok he looks a little dry. Exam Vital Signs (past 8 hours): - 08/24/25 08:08 Pulse Rate 84 Blood Pressure 140/70 Oxygen Delivery Method Room Air Oxygen Flow Rate 0 Narrative Exam Narrative: Resting in bed with well wisher at bedside Resp Other: Clear to auscultation bilaterally Cardio Other: Regular rate and rhythm S1-S2 minimal pedal edema GI Other: Ostomy in place Other: Suprapubic catheter in place draining cloudy urine Neuro Other: Alert awake oriented limited use of lower extremities secondary to dense paraplegia Extrem Other: Developing pressure ulcer on sacrum and left hallux Objective Labs 08/24/25 06:00 08/24/25 06:00 Labs: Laboratory Results - last 24 hr 08/23/25 08/24/25 16:30 06:00 WBC 5.8 RBC 4.54 Hgb 12.6 L Hct 37.2 L MCV 82.0 MCH 27.6 MCHC 33.7 RDW 14.2 Plt Count 145 L Neut % (Auto) 74.7 Lymph % (Auto) 15.0 L [place] % (Auto) 9.2 Eos % (Auto) 0.7 L Baso % (Auto) 0.4 Neut # (Auto) 4300 Lymph # (Auto) 900 L [place] # (Auto) 500 Eos # (Auto) 0 Baso # (Auto) 0 Sodium 140 Potassium 4.3 Chloride 107 Carbon Dioxide 27 BUN 20 Creatinine 0.68 Estimated GFR > 60 BUN/Creatinine Ratio 29.4 H Glucose 94 Calcium 8.5 Urine Color Yellow Urine Appearance Sl cloudy Urine pH 6.5 Ur Specific [place] 1.010 Urine Protein Trace H Urine Glucose (UA) Negative Urine Ketones Negative Urine Occult Blood 3+ H Urine Nitrate Positive H Urine Bilirubin Negative Urine Urobilinogen 0.2 Ur Leukocyte Esterase 1+ H Urine RBC 30-100/hpf H Urine WBC 5-10/hpf H Ur Squamous Epith Cells 0-1 /hpf Urine Bacteria Moderate (10-30) H Ur Culture Indicated? 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) History of aortic valve replacement (05/14/22) S/P right colectomy (05/25/22) S/P ileostomy (05/26/22) [place] teeth removed Social History marital status: unmarried,single household members: none occupational status: student ([employer] through [employer]) Smoking Status: Never smoker alcohol intake: former substance use type: does not use Assessment & Plan Assessment & Plan narrative: 40-year-old male with complex medical history including 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 #MDR UTI #suprapubic catheter Recent urine culture grew E coli that is broadly sensitive, Klebsiella sensitive only to ertapenem, meropenem, pip/tazo. Normal white count and renal function, no evidence of systemic infection. CT shows single small nonobstructing calculus in right kidney without signs of pyelonephritis. Urology consulted from ER and recommends embedding/treating given patient's concern and symptoms for UTI. Suprapubic catheter clamped to collect clean sample for repeat culture prior to exchange. continue ertapenem 1g IV Q24h - should be easiest to arrange as outpatient - goal is 7 days of treatment. already has appt outpt with Urology Dr. Lemon in October. #hypertension stable continue home amlodipine, carvedilol #DVT Known thrombus in LLE, home eliquis b.i.d. #pressure ulcers sacrum and toe keep patient moved and wedged - may benefit from outpt wound care f/up Dispo: acute care Diet: regular DVT ppx: eliquis Code: FULL PCP: Eder Time-Based Coding :: [TOTAL MINUTES] spent with patient and on the chart (including review of chart, obtaining history, exam, reviewing outside data, placing orders, documenting exam and treatment plan, and counseling patient) on [DATE].
[2025-08-24] MEDS: SODIUM CHLORIDE 0.9% 1,000 ML 84 ML IV (13:54)
[2025-08-24] MEDS: ERTAPENEM 1 GM in SODIUM CHLORIDE 0.9% 100 ML IV (16:17)
[2025-08-24 20:15] VITALS: BP 159/64; PULSE 81; RESP 18; TEMP 36.6; O2SAT 95
[2025-08-24 20:19] VITALS: BP 159/68; PULSE 82
[2025-08-25 02:30] VITALS: BP 135/66; PULSE 74; RESP 18; TEMP 36.8; O2SAT 94
[2025-08-25 09:00] VITALS: BP 152/69; PULSE 76; RESP 16; TEMP 36.8; O2SAT 95
[2025-08-25] MEDS: SODIUM CHLORIDE 0.9% FLUSH 10 ML IV (09:18)
[2025-08-25] MEDS: SILVER SULFADIAZINE 1% CREAM 25 GM 1 APPLIC TOP (09:18)
[2025-08-25] MEDS: APIXABAN 5 MG TABLET PO (09:18)
--- NOTE | 2025-08-25 11:00 | PM.DS.1 ---
History of Present Illness History of Present Illness Date Patient Seen: 08/25/25 Time Patient Seen: 11:00 Chief complaint: Per pt coming for 2 day antibiotics Narrative: chief complaint multiple drug-resistant UTI continues to feel asymptomatic he will have completed 3 IV treatments of ertapenem today okay to discharge and complete 7 days total of treatment in outpatient setting vitals are stable urine output good. Discharge Providers Provider Date of admission: 08/23/25 15:51 Discharge Date: 08/25/25 Primary care physician: Chuck Gaines MD Discharge provider: Haroon Griffin MD Summary Hospital Course Discharge Diagnosis: #MDR UTI #suprapubic catheter #hypertension #DVT #pressure ulcers sacrum and toe #paraplegic #colostomy Hospital Course: Mr. 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 He presented to ED with call from clinic informing him he had grown multiple drug-resistant Klebsiella on urine sample, he was essentially asymptomatic,. He was admitted and received 3 doses of ertapenem IV 1 g Q 24 which per culture Klebsiella should be susceptible. He was not is asymptomatic. Plan will be to discharge and complete 7 days total of treatment in outpatient setting. Status at Discharge Cognitive/behavioral status at discharge: at baseline, oriented Functional status at discharge: wheelchair bound Overall status at discharge: patient is progressing back to baseline Exam Vital Signs (past 8 hours): - 08/25/25 09:00 Temperature 98.2 F Pulse Rate 76 Respiratory Rate 16 Blood Pressure 152/69 H Pulse Oximetry 95 Oxygen Flow Rate 0 Oxygen Delivery Method Room Air Oxygen Flow Rate 0 Narrative Exam Narrative: Working on schoolwork and hospital bed Const Other: well-developed paraplegic Resp Other: moving air well satting well on room air clear to auscultation bilaterally Cardio Other: regular rate and rhythm S1-S2 GI Other: soft nontender active bowel sounds colostomy Other: suprapubic catheter Objective Labs 08/24/25 06:00 08/24/25 06:00 [facility] Medical History Aortic dissection (05/14/22) Spinal cord infarction (~05/23/22) Ischemic colon (05/26/22) Stroke (05/23/22) Surgical History 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) History of aortic valve replacement (05/14/22) S/P right colectomy (05/25/22) S/P ileostomy (05/26/22) [place] teeth removed Social History marital status: unmarried,single household members: none occupational status: student ([employer] through [employer]) Smoking Status: Never smoker alcohol intake: former substance use type: does not use Discharge Assessment & Plan Assessment and Plan Assessment: 40-year-old male with complex medical history including 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 #MDR UTI #suprapubic catheter Recent urine culture grew E coli that is broadly sensitive, Klebsiella sensitive only to ertapenem, meropenem, pip/tazo. Normal white count and renal function, no evidence of systemic infection. CT shows single small nonobstructing calculus in right kidney without signs of pyelonephritis. Urology consulted from ER and recommends embedding/treating given patient's concern and symptoms for UTI. today will be day 3 of IV ertapenem 1 g Q 24 he will complete next 4 doses in outpatient setting, goal is 7 days of treatment total. already has appt outpt with Urology Dr. Lemon in October. #hypertension stable continue home amlodipine, carvedilol #DVT Known thrombus in LLE, continue home eliquis b.i.d. #pressure ulcers sacrum and toe mild keep patient moved and wedged - may benefit from outpt wound care f/up Dispo: discharge to complete antibiotics and outpatient setting. Diet: regular DVT ppx: eliquis Code: FULL PCP: Eder Discharge Plan Discharge Plan Patient Disposition: Home Provider Discharge Comment: after afternoon ertapenem dose Nursing Discharge Comment: leave midline in Discharge orders & Medications Prescriptions: New ertapenem 1 gram Recon Soln 1 gm IV Q24H 4 Days Qty: 4 0RF Continued carvedilol 25 mg tablet 25 mg PO BID amlodipine 10 mg tablet 10 mg PO DAILY Eliquis 5 mg tablet 5 mg PO BID Patient Comments: Current DVT in left leg. Prior: Blood clot in optical nerve, brain (bilateral strokes), and IVC (blood filter in neck). Eliquis 5 mg tablet 5 mg PO BID Follow up/Referrals: Chuck Gaines MD [Primary Care Provider, Family Practice] Visit Report/Discharge Packet Stand Alone Forms: Patient Portal/API, Stroke Signs & Symptoms Discharge Data Primary Care Provider: Chuck Gaines Attending Provider: Chuck Gaines Admit Date/Time: 08/23/25 15:51
--- NOTE | 2025-08-25 12:28 | CM.DPC ---
DCP Infusion Clinic Cont: Per MD, pt is medically stable to discharge other than confirming outpt infusion clinic set up and scheduled but pt wanting to d/c home today as he has class tomorrow and discharge orders placed but waiting to see if pt discharges home after dose of IV Abx today or waits until tomorrow when infusion clinic secured. KATELYNN sent WebEx to Rebecca for [facility] scheduling to triage pt's referral and need for likely [employer] auth through the auth's dept at [facility]. Faxed signed Provider Order Form to [facility] to review ( did not think labs needed as likely only another 4 days of IV Ertapenem). SW to follow up closely in AM with Rebecca at [facility] to confirm they can get pt on the schedule for next dose on Tuesday and subsequent Q24 for the duration needed. Val Daniel MSW
[2025-08-25] MEDS: ERTAPENEM 1 GM in SODIUM CHLORIDE 0.9% 100 ML IV (15:44)
--- NOTE | 2025-08-26 09:14 | CM.DPC ---
KATELYNN spoke to Rebecca at [facility] and resent the Provider Order Form and she confirms she will review and work on getting patient scheduled for outpt IV antibiotics and aware that pt did discharge home last night. Updated that pt's PCP will be following Provider Dr. Gaines. MADINA Perez
== END 2025-08-25 17:10 | disposition home or self-care (01) | DRG 699 ==
LOC: ED 12:20 → AC 15:56
PROVIDERS: Admitting Provider Family Medicine; Emergency Provider Physician Assistant; PCP Family Medicine; Referring Provider Physician Assistant; Visit Provider Family Medicine
DX: T83.518A Infection and inflammatory reaction due to other urinary catheter, initial encounter (principal); G82.20 Paraplegia, unspecified; N39.0 Urinary tract infection, site not specified; Z16.24 Resistance to multiple antibiotics; I82.502 Chronic embolism and thrombosis of unspecified deep veins of left lower extremity; I10 Essential (primary) hypertension; N20.0 Calculus of kidney; L89.159 Pressure ulcer of sacral region, unspecified stage; L89.899 Pressure ulcer of other site, unspecified stage; B96.1 Klebsiella pneumoniae [K. pneumoniae] as the cause of diseases classified elsewhere; B96.20 Unspecified Escherichia coli [E. coli] as the cause of diseases classified elsewhere; Y73.1 Therapeutic (nonsurgical) and rehabilitative gastroenterology and urology devices associated with adverse incidents; Z90.49 Acquired absence of other specified parts of digestive tract; Z86.73 Personal history of transient ischemic attack (TIA), and cerebral infarction without residual deficits; Z93.2 Ileostomy status; Z79.01 Long term (current) use of anticoagulants; Z86.79 Personal history of other diseases of the circulatory system
CPT/HCPCS: 36415; 74177; 80048; 80053; 81001; 83605; 85025; 87077; 87086; 87186; 99222; 99283; 99284; G0378; J1335; J1642; J7030; J7050; Q9967

== ENCOUNTER 2025-08-26 13:38 | Emergency (ER) | payer OTHER, MEDICAID, SELFPAY ==
[2022-05-14 07:08] VITALS: RESP 20
[2025-08-26 13:42] VITALS: BP 152/74; PULSE 82; RESP 17; TEMP 36.6; O2SAT 99; BMI 25.8
[2025-08-26] MEDS: ERTAPENEM 1 GM in SODIUM CHLORIDE 0.9% 100 ML IV (16:35)
--- NOTE | 2025-08-26 16:57 | ED.RECABL ---
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 Patient was hospitalized and discharged yesterday, was instructed to get for additional daily doses of ertapenem IV as an outpatient in the infusion clinic. Patient was unable to obtain the infusion at the infusion clinic, therefore presents to the ED for today's dose. Denies fever, chills. Related Data Home Medications ?Medication ?Instructions ?Recorded ?Confirmed amlodipine 10 mg tablet 10 mg PO DAILY 07/26/25 08/23/25 carvedilol 25 mg tablet 25 mg PO BID 07/26/25 08/23/25 apixaban 5 mg tablet (Eliquis) 5 mg PO BID 08/23/25 08/23/25 apixaban 5 mg tablet (Eliquis) 5 mg PO BID Spinal cord injury 08/23/25 08/23/25 Previous Rx's ?Medication ?Instructions ?Recorded ertapenem 1 gram solution for 1 gm IV Q24H 4 days #4 ea 08/25/25 injection Allergies Allergy/AdvReac Type Severity Reaction Status Date / Time oxycodone AdvReac Verified 08/26/25 13:44 tramadol AdvReac Verified 08/26/25 13:44 Review of Systems <Amanda Murphy PA-C - Last Filed: 08/26/25 17:06> Constitutional Constitutional: Denies chills, Denies fatigue, Denies fever(s), Denies frequent falls, Denies lethargy and Denies weakness Eyes Eyes: Denies change in vision, Denies eye discharge, Denies irritation and Denies loss of vision ENT Ears, Nose, Mouth, and Throat: Denies change in voice, Denies dizziness, Denies neck pain, Denies sore throat and Denies throat swelling Cardiovascular Cardiovascular: Denies chest pain, Denies irregular heart rhythm, Denies lightheadedness, Denies palpitations, Denies dyspnea, Denies dyspnea on exertion and Denies orthopnea Respiratory Respiratory: Denies cough, Denies dyspnea, Denies dyspnea on exertion and Denies wheezing Gastrointestinal Gastrointestinal: Denies abdominal pain, Denies change in bowel habits, Denies diarrhea, Denies nausea and Denies vomiting Musculoskeletal Musculoskeletal: Denies neck pain and Denies numbness Integumentary/Breasts Skin/Breast: Denies pruritus, Denies erythema, Denies rash and Denies wounds Neurologic Neurologic: Denies behavioral changes, Denies confusion, Denies dizziness, Denies frequent falls, Denies loss of vision, Denies numbness and Denies weakness Psychiatric Psychiatric: Denies anxiety, Denies behavioral changes, Denies confusion, Denies depression, Denies homicidal ideation and Denies suicidal ideation Endocrine Endocrine: Denies fatigue, Denies flushing and Denies palpitations Hematologic/Lymphatic Hematologic/Lymphatic: Denies easy bruising Allergic/Immunologic Allergic/Immunologic: Denies urticaria, Denies throat swelling and Denies wheezing Patient History <Amanda Murphy PA-C - Last Filed: 08/26/25 17:06> Medical History Aortic dissection (05/14/22) Spinal cord infarction (~05/23/22) Ischemic colon (05/26/22) Stroke (05/23/22) Surgical History 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) History of aortic valve replacement (05/14/22) S/P right colectomy (05/25/22) S/P ileostomy (05/26/22) [place] teeth removed Social History marital status: unmarried,single household members: none occupational status: student ([employer] through [employer]) alcohol intake: former substance use type: does not use Exam <Amanda Murphy PA-C - Last Filed: 08/26/25 17:06> Narrative Exam Narrative: Const General:?cooperative, healthy appearing and comfortable [facility] Head:?normal to inspection Ears:?hearing grossly normal bilaterally Nose:?external nose normal Face and sinus:?normal facial exam and sinuses nontender Mouth:?oral mucosae normal Throat:?posterior oropharynx normal Eyes General:?appearance normal, both eyes and all related structures Neck Neck:?normal visual inspection and no lymphadenopathy noted Resp Effort & Inspection:?normal respiratory effort Auscultation:?clear to auscultation bilaterally Cardio Rate:?regular rate Rhythm:?regular rhythm Neuro General:?patient alert, patient awake and patient oriented x3 Initial Vital Signs Initial Vital Signs: Vital Signs Temperature 97.8 F 08/26/25 13:42 Pulse Rate 82 08/26/25 13:42 Respiratory Rate 17 08/26/25 13:42 Blood Pressure 152/74 H 08/26/25 13:42 Pulse Oximetry 99 08/26/25 13:42 Oxygen Delivery Method Room Air 08/26/25 13:42 <Timothy Nye MD - Last Filed: 08/26/25 22:13> Initial Vital Signs Initial Vital Signs: Vital Signs Temperature 97.8 F 08/26/25 13:42 Pulse Rate 82 08/26/25 13:42 Respiratory Rate 17 08/26/25 13:42 Blood Pressure 152/74 H 08/26/25 13:42 Pulse Oximetry 99 08/26/25 13:42 Oxygen Delivery Method Room Air 08/26/25 13:42 Course <Amanda Murphy PA-C - Last Filed: 08/26/25 17:06> Orders Ordered: Discontinued Medications Ertapenem 1 gm/ Sodium (Chloride) 100 mls @ 200 mls/hr IV NOW ONE Stop: 08/26/25 15:21 Last Admin: 08/26/25 16:35 Dose: 200 mls/hr Documented By: ES Vital Signs Vital signs: Vital Signs - 8 hr 08/26/25 13:42 Temperature 97.8 F Pulse Rate 82 Respiratory Rate 17 Blood Pressure 152/74 H Pulse Oximetry 99 Oxygen Delivery Method Room Air <Timothy Nye MD - Last Filed: 08/26/25 22:13> Orders Ordered: Discontinued Medications Ertapenem 1 gm/ Sodium (Chloride) 100 mls @ 200 mls/hr IV NOW ONE Stop: 08/26/25 15:21 Last Admin: 08/26/25 16:35 Dose: 200 mls/hr Documented By: JAYDEN Vital Signs Vital signs: Vital Signs - 8 hr 08/26/25 13:42 Temperature 97.8 F Pulse Rate 82 Respiratory Rate 17 Blood Pressure 152/74 H Pulse Oximetry 99 Oxygen Delivery Method Room Air MDM - Recheck/Abnormal Lab/Rx <Amanda Murphy PA-C - Last Filed: 08/26/25 17:06> [facility] Narrative Medical decision making narrative: 40-year-old male with past medical history spinal in fact after aortic dissection 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 Patient given 1 g IV ertapenem. ED return precautions discussed with patient. Patient verbalized understanding. 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 Patient given 1 g IV ertapenem. ED return precautions discussed with patient. Patient verbalized understanding. Medical records reviewed: Yes I was available for consultation during this patient's visit was not involved in the care. Discharge Plan Departure Patient Disposition: Home Clinical Impression: UTI (urinary tract infection) Qualifiers: Urinary tract infection type: acute cystitis Hematuria presence: with hematuria Qualified Code(s): N30.01 - Acute cystitis with hematuria Instructions: DI for Urinary Tract Infection (UTI) Activity Restrictions/Additional Instructions: You were seen in the emergency department today for a dose of IV antibiotics for UTI. You were given 1 g of ertapenem IV. Please follow-up with your PCP, Infusion Center for your remaining doses of antibiotics. If you are unable to obtain the antibiotics at the infusion center, please return to the ED. Prescriptions: No Action carvedilol 25 mg tablet 25 mg PO BID amlodipine 10 mg tablet 10 mg PO DAILY Eliquis 5 mg tablet 5 mg PO BID Patient Comments: Current DVT in left leg. Prior: Blood clot in optical nerve, brain (bilateral strokes), and IVC (blood filter in neck). Eliquis 5 mg tablet 5 mg PO BID ertapenem 1 gram Recon Soln 1 gm IV Q24H 4 Days Qty: 4 0RF Referrals: Chuck Gaines MD [Primary Care Provider, [facility]] Stand Alone Forms: Patient Portal/API
== END 2025-08-26 17:23 | disposition home or self-care (01) ==
PROVIDERS: Emergency Provider Student in an Organized Health Care Education/Training Program; PCP Family Medicine
DX: N30.01 Acute cystitis with hematuria (principal); G82.20 Paraplegia, unspecified; Z16.24 Resistance to multiple antibiotics; Z93.2 Ileostomy status; Z93.6 Other artificial openings of urinary tract status
CPT/HCPCS: 99283; 99284; J1335; J7050

== ENCOUNTER 2025-08-27 17:02 | Emergency (ER) | payer OTHER, MEDICAID, SELFPAY ==
[2022-05-14 07:08] VITALS: RESP 20
[2025-08-27 17:12] VITALS: BP 133/63; PULSE 76; RESP 16; TEMP 36.6; O2SAT 98; BMI 25.8
--- NOTE | 2025-08-27 17:15 | DI.RAD.S_ITS ---
PROCEDURE: XR CHEST 2V INDICATIONS: shortness of breath TECHNIQUE: 2 views of the chest were acquired. COMPARISON: [facility], , XR CHEST 1V, 06/05/2025, 22:53. [facility], CR, XR CHEST 1V, 09/04/2023, 1:43. FINDINGS: Surgical changes and devices: Sternotomy. Prosthetic aortic valve. Aortic endograft. Lungs and pleura: Lungs are clear. No pleural effusions or pneumothorax. Mediastinum: Mediastinal contours are normal. Heart size is normal. Bones and chest wall: No suspicious bony abnormalities. Soft tissues appear unremarkable. IMPRESSION: No acute cardiopulmonary abnormality is seen. Dictated by: Tre Hammond M.D. on 08/27/2025 at 17:38 Approved by: Tre Hammond M.D. on 08/27/2025 at 17:38
--- NOTE | 2025-08-27 17:18 | ED_ITS ---
<Statement entered by Jordan Carter MD - 08/27/25 23:07> Case was discussed prior to discharge. I personally contacted the primary care service to facilitate follow up. HPI - Recheck/Abnormal Lab/Rx General Chief Complaint: Recheck/Abnormal Lab/Rx Stated Complaint: IV Therapy Time Seen by Provider: 08/27/25 17:04 Source: patient Mode of arrival: Wheelchair History of Present Illness HPI narrative: Mr. Castro is a pleasant 40-year-old male with a past medical history of spinal infarct after aortic dissection repair resulting in T5 paraplegia, suprapubic catheter, ileostomy, DVT on Eliquis who presents to the emergency department for 5th dose of IV ertapenem for multidrug resistant UTI. Patient 1st came to the emergency department on 08/17/2025, urine culture ended up growing multidrug resistant pathogens so he returned to the ER on 08/23/2025 and was admitted to the hospital receiving 1 g of IV ertapenem. The patient was discharged from the hospital after a total of 3 doses of ertapenem with a discharge plan to finish a total of 7 days of ertapenem outpatient however the patient did not have an appointment with the infusion clinic and therefore return to the ER yesterday for his dose and returns again today for his 5th dose. Patient reports that he overall is doing better he is still having some bladder pain and he also shares with me that he has actually been having intermittent shortness of breath that has been going on for a few days even during his hospitalization with a occasional coughing. He denies fevers, chills, vomiting or any other concerns. He has been compliant with his Eliquis. Related Data Home Medications ?Medication ?Instructions ?Recorded ?Confirmed amlodipine 10 mg tablet 10 mg PO DAILY 07/26/2508/04 carvedilol 25 mg tablet 25 mg PO BID 07/26/25 apixaban 5 mg tablet (Eliquis) 5 mg PO BID 08/23/25 apixaban 5 mg tablet (Eliquis) 5 mg PO BID Spinal cord injury 08/23/25 08/23/25 Previous Rx's ?Medication ?Instructions ?Recorded ertapenem 1 gram solution for 1 gm IV Q24H 4 days #4 e a 08/25/25 injection Allergies Allergy/AdvReac Type Severity Reaction Status Date / Time oxycodone AdvReac Verified 08/26/25 13:44 tramadol AdvReac Verified 08/26/25 13:44 Review of Systems Review of Systems ROS Unobtainable: All systems reviewed & are unremarkable except as noted in HPI and below Patient History Medical History Aortic dissection (05/14/22) Spinal cord infarction (~05/23/22) Ischemic colon (05/26/22) Stroke (05/23/22) Surgical History 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 Well-developed patient, in no acute distress. HEAD: Atraumatic. Normocephalic. EYES: No scleral icterus. No injection or drainage. NECK: Trachea midline. Cervical ROM intact. CARDIOVASCULAR: Regular rate and rhythm. RESPIRATORY: ?Nonlabored respirations. ?Speaking in clear, full sentences. ?Clear to auscultation. Breath sounds equal bilaterally. No wheezes, rales, or rhonchi. ? NEURO: Alert and oriented. Clear speech. T5 paraplegia, uses wheelchair independently. SKIN: No rash or erythema of visible areas Initial Vital Signs Initial Vital Signs: Vital Signs Temperature 97.8 F 08/27/25 17:12 Pulse Rate 76 08/27/25 17:12 Respiratory Rate 16 08/27/25 17:12 Blood Pressure 133/63 08/27/25 17:12 Pulse Oximetry 98 08/27/25 17:12 Oxygen Delivery Method Room Air 08/27/25 17:12 Course Orders Ordered: ED Orders 08/27/25 17:15 Chest [XR chest 2V] Stat Discontinued Medications Ertapenem 1 gm/ Sodium (Chloride) 100 mls @ 200 mls/hr IV NOW ONE Stop: 08/27/25 17:17 Last Admin: 08/27/25 17:25 Dose: 200 mls/hr Documented By: BALDO Vital Signs Vital signs: Vital Signs - 8 hr 08/27/25 17:12 Temperature 97.8 F Pulse Rate 76 Respiratory Rate 16 Blood Pressure 133/63 Pulse Oximetry 98 Oxygen Delivery Method Room Air MDM - Recheck/Abnormal Lab/Rx Medical Records Attestation: I reviewed the patient's medical records. Imaging Data Chest x-ray: Radiologist's Impression: PROCEDURE: XR CHEST 2V INDICATIONS: shortness of breath TECHNIQUE: 2 views of the chest were acquired. COMPARISON: [facility], CR, XR CHEST 1V, 06/05/2025, 22:53. [facility], CR, XR CHEST 1V, 09/04/2023, 1:43. FINDINGS: Surgical changes and devices: Sternotomy. Prosthetic aortic valve. Aortic endograft. Lungs and pleura: Lungs are clear. No pleural effusions or pneumothorax. Mediastinum: Mediastinal contours are normal. Heart size is normal. Bones and chest wall: No suspicious bony abnormalities. Soft tissues appear unremarkable. IMPRESSION: No acute cardiopulmonary abnormality is seen. Dictated by: Tre Hammond M.D. on 08/27/2025 at 17:38 Approved by: Tre Hammond M.D. on 08/27/2025 at 17:38 [facility] Narrative Medical decision making narrative: 40-year-old male with a past medical history of spinal infarct after aortic dissection repair resulting in T5 paraplegia, suprapubic catheter, ileostomy, DVT on Eliquis who presents to the emergency department for 5th dose of IV ertapenem for multidrug resistant UTI. Differential diagnosis includes but is not limited to UTI, need for IV antibiotics, pneumonia, etc. On exam patient is in no acute distress, nontoxic-appearing, all vital signs within normal limits. He is here for his 5th dose of IV ertapenem for UTI. He was advised however total of 7 doses however he has been unable to follow up with the infusion clinic, it appears that he will be able to go to the infusion clinic tomorrow however. Patient shares with me that he has been feeling well with the exception of continued bladder pain and also that he has been having some intermittent shortness of breath even during his hospitalization. On 08/23/2025 when the patient had a CT abdomen and pelvis it did reveal some changes in the right lower lobe of the lung that could potentially represent pneumonia however patient reports that he has scarring in his lungs. However given his shortness of breath we will obtain chest x-ray today for further evaluation. He is not currently short of breath, he is not tachycardic or hypoxic, he is not experiencing any chest pain, he has been compliant with Eliquis and therefore low suspicion for PE at this time. 1 g IV ertapenem ordered, patient has a midline in his right arm. Chest x-ray reveals no acute cardiopulmonary abnormality. He received his IV infusion without complication. Appears he does have an appointment to receive his final 2 doses. Discussed ED return precautions and follow up with PCP with the patient. Patient verbalized understanding all information agreeable with the plan. He is stable for discharge home. Discharge Plan Departure Patient Disposition: Home Clinical Impression: Presence of suprapubic catheter Urinary tract infection Qualifiers: Urinary tract infection type: site unspecified Hematuria presence: without hematuria Qualified Code(s): N39.0 - Urinary tract infection, site not specified Instructions: DI for Urinary Tract Infection (UTI) Activity Restrictions/Additional Instructions: Dear Mr. Castro, Today you received your 5th dose of IV antibiotics for a urinary tract infection. Please follow up with your primary care doctor/the infusion clinic tomorrow as scheduled for your subsequent 6th and then 7th dose. Please return to the emergency department if you develop fevers, severe pain, blockage of urinary flow, difficulty breathing or any other concerns. Please follow up with your primary care doctor within the next 2-3 days for ER follow-up. (If you do not have a PCP you can call [phone]. ?to schedule an appointment with an [facility] Primary Care Provider) IF YOU DEVELOP ANY NEW OR WORSENING SYMPTOMS, RETURN TO THE ER! Please read the attached instructions, they highlight more specific treatments and interventions for you at home. Thank you for letting me participate in your care, Amy Recio PA-C Prescriptions: No Action carvedilol 25 mg tablet 25 mg PO BID amlodipine 10 mg tablet 10 mg PO DAILY Eliquis 5 mg tablet 5 mg PO BID Patient Comments: Current DVT in left leg. Prior: Blood clot in optical nerve, brain (bilateral strokes), and IVC (blood filter in neck). Eliquis 5 mg tablet 5 mg PO BID ertapenem 1 gram Recon Soln 1 gm IV Q24H 4 Days Qty: 4 0RF Referrals: Chuck Gaines MD [Primary Care Provider, [facility]] Stand Alone Forms: Patient Portal/API
[2025-08-27] MEDS: ERTAPENEM 1 GM in SODIUM CHLORIDE 0.9% 100 ML IV (17:25)
== END 2025-08-27 18:48 | disposition home or self-care (01) ==
PROVIDERS: Emergency Provider Physician Assistant; PCP Family Medicine
DX: N39.0 Urinary tract infection, site not specified (principal); R06.02 Shortness of breath; Z16.24 Resistance to multiple antibiotics; Z93.6 Other artificial openings of urinary tract status
CPT/HCPCS: 71046; 99283; 99284; J1335; J7050

== ENCOUNTER 2025-09-27 23:30 | Emergency (ER) | payer OTHER, MEDICAID, SELFPAY ==
[2022-05-14 07:08] VITALS: RESP 20
--- OUTSIDE RECORDS SUMMARY | 2025-09-27 23:33 | XMS_ITS | Clinical Summary ---
Author Organization [facility] Address [address] [place] [address] Care Team Providers Care Curbstone Setter Name Role Phone Pcp, None Selected Primary Care Provider Unavail able Allergies Active Allergy Reactions Criticality Noted Date Comments Oxycodone GI intolerance 07/17/2022 Other Reaction(s): Other (See Comments) GI upset GI upset GI upset Tramadol Other (see comments) 08/02/2022 Medications apixaban (ELIQUIS) 5 mg tablet Take 1 tablet (5 mg total) by mouth 2 times daily Holding 01/18/2023 Active transparent dressings 4 X 4 3/4 bandage 01/18/2023 Activ e amLODIPine (NORVASC) 10 mg tablet Take 1 tablet (10 mg total) by mouth daily Active carvediloL (COREG) 25 mg tablet Take 1 tablet (25 mg total) by mouth Active Active Problems Problem Noted Date Diagnosed Date SBO (small bowel obstruction) 07/01/2024 Rhinovirus infection 06/27/2024 Presence of IVC filter 05/25/2024 S/P insertion of endovascular thoracic aortic st ent graft 04/19/2024 Left ureteral stone 12/27/2023 Bladder stone 12/27/2023 Nephrolithiasis 12/08/2023 History of cardioembolic stroke 10/20/2023 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 02/02/2023 History of pulmonary embolism 12/03/2022 Pulmonary embolus 12/03/2022 Visit for wound care 10/19/2022 History of aortic dissection 10/08/2022 Indwelling urinary catheter present 10/08/2022 Suprapubic catheter 10/08/2022 Paraplegia 10/08/2022 Pressure injury of heel, unstageable 10/08/2022 Neurogenic bladder 09/21/2022 Acute incomplete paraplegia 09/07/2022 Hematoma 09/03/2022 Spinal cord injury at T1-T6 level 08/02/2022 Anemia 07/31/2022 Moderate protein-calorie malnutrition 07/25/2022 S/P ileostomy 07/23/2022 Chronic UTI 07/15/2022 Dysphagia 06/06/2022 Acute ischemic colitis 05/25/2022 Overview (11/22/2023): 05/25/2022-acute ischemic colitis Consulted by ICU team with regard to the patient who is a 36-year-old male who underwent emergent repair of a type A/B aortic dissection requiring aortic valve replacement, aortic root replacement, and ascending aortic stent grafting. The patient's postoperative course was marked by delayed sternal closure. Over the last 48 hours, the patient has had progressively worsening leukocytosis to 40,000. Intermittent hypotension. Persistent findings of shock liver with transaminitis greater than 3000. Worsening metabolic acidosis. Continued oliguric renal failure with renal replacement therapy ongoing. Given the worsening physiologic parameters, the patient was taken to CT scan of the abdomen and pelvis which demonstrated findings consistent with pneumatosis involving the ascending and transverse colon. Given these findings and combined with the patient's overall physiologic status, it is likely that the patient has sustained an ischemic insult to his colon. The remainder of his exam demonstrates no evidence of other potential embolic phenomenon. Reviewed the CT scan and radiology review demonstrate no change or suggestion of occluding flap to the visceral vessels. Accordingly, I have had extensive discussions with the ICU team, cardiothoracic surgery, and the surgical ICU surgeon. Based on the patient's overall worsening parameters, young age, and dire findings on CT scan, failure to intervene would likely result in progressive physiologic deterioration and . I made every attempt to contact the patient's family. I called the patient's mother on her cell phone. I tried their home phone. We tried a family friend who is also a contact. All numbers either went directly to [employer] or did not have mailbox set up. I therefore obtained two-physician emergency consent with Dr. Hannah who is the ICU physician on-call. The nature of this operation is an emergent 1 in the setting of likely ischemic colitis resulting in pneumatosis and overall physiologic deterioration. Our operation will be a damage control type surgery with likely right colectomy or potentially a more extensive dissection/resection. It is highly likely that the patient will undergo a temporary abdominal closure at the end of this first operation with the planned intention for a takeback for reevaluation of bowel viability. It is highly likely that the patient will require an end ostomy of some kind. I have discussed this plan with the bedside nurses, I have conducted a briefing with the OR surgical team. We will plan to bring the patient to the operating room emergently. Given the patient's overall physiologic status, he is an ASA IV case. His perioperative mortality risk is over 50%-however without intervention, his mortality is likely 100%. Appreciate distributing clerk and cardiothoracic team input. Viviana Ellis MD General Surgeon 05/25/2022-acute ischemic colitis Consulted by ICU team with regard to the patient who is a 36-year-old male who underwent emergent repair of a type A/B aortic dissection requiring aortic valve replacement, aortic root replacement, and ascending aortic stent grafting. The patient's postoperative course was marked by delayed sternal closure. Over the last 48 hours, the patient has had progressively worsening leukocytosis to 40,000. Intermittent hypotension. Persistent findings of shock liver with transaminitis greater than 3000. Worsening metabolic acidosis. Continued oliguric renal failure with renal replacement therapy ongoing. Given the worsening physiologic parameters, the patient was taken to CT scan of the abdomen and pelvis which demonstrated findings consistent with pneumatosis involving the ascending and transverse colon. Given these findings and combined with the patient's overall physiologic status, it is likely that the patient has sustained an ischemic insult to his colon. The remainder of his exam demonstrates no evidence of other potential embolic phenomenon. Reviewed the CT scan and radiology review demonstrate no change or suggestion of occluding flap to the visceral vessels. Accordingly, I have had extensive discussions with the ICU team, cardiothoracic surgery, and the surgical ICU surgeon. Based on the patient's overall worsening parameters, young age, and dire findings on CT scan, failure to intervene would likely result in progressive physiologic deterioration and . I made every attempt to contact the patient's family. I called the patient's mother on her cell phone. I tried their home phone. We tried a family friend who is also a contact. All numbers either went directly to voicemail or did not have mailbox set up. I therefore obtained two-physician emergency consent with Dr. Hannah who is the ICU physician on-call. The nature of this operation is an emergent 1 in the setting of likely ischemic colitis resulting in pneumatosis and overall physiologic deterioration. Our operation will be a damage control type surgery with likely right colectomy or potentially a more extensive dissection/resection. It is highly likely that the patient will undergo a temporary abdominal closure at the end of this first operation with the planned intention for a takeback for reevaluation of bowel viability. It is highly likely that the patient will require an end ostomy of some kind. I have discussed this plan with the bedside nurses, I have conducted a briefing with the OR surgical team. We will plan to bring the patient to the operating room emergently. Given the patient's overall physiologic status, he is an ASA IV case. His perioperative mortality risk is over 50%-however without intervention, his mortality is likely 100%. Appreciate distributing clerk and cardiothoracic team input. Viviana Ellis MD General Surgeon 05/25/2022-acute ischemic colitis Consulted by ICU team with regard to the patient who is a 36-year-old male who underwent emergent repair of a type A/B aortic dissection requiring aortic valve replacement, aortic root replacement, and ascending aortic stent grafting. The patient's postoperative course was marked by delayed sternal closure. Over the last 48 hours, the patient has had progressively worsening leukocytosis to 40,000. Intermittent hypotension. Persistent findings of shock liver with transaminitis greater than 3000. Worsening metabolic acidosis. Continued oliguric renal failure with renal replacement therapy ongoing. Given the worsening physiologic parameters, the patient was taken to CT scan of the abdomen and pelvis which demonstrated findings consistent with pneumatosis involving the ascending and transverse colon. Given these findings and combined with the patient's overall physiologic status, it is likely that the patient has sustained an ischemic insult to his colon. The remainder of his exam demonstrates no evidence of other potential embolic phenomenon. Reviewed the CT scan and radiology review demonstrate no change or suggestion of occluding flap to the visceral vessels. Accordingly, I have had extensive discussions with the ICU team, cardiothoracic surgery, and the surgical ICU surgeon. Based on the patient's overall worsening parameters, young age, and dire findings on CT scan, failure to intervene would likely result in progressive physiologic deterioration and . I made every attempt to contact the patient's family. I called the patient's mother on her cell phone. I tried their home phone. We tried a family friend who is also a contact. All numbers either went directly to [employer] or did not have mailbox set up. I therefore obtained two-physician emergency consent with Dr. Hannah who is the ICU physician on-call. The nature of this operation is an emergent 1 in the setting of likely ischemic colitis resulting in pneumatosis and overall physiologic deterioration. Our operation will be a damage control type surgery with likely right colectomy or potentially a more extensive dissection/resection. It is highly likely that the patient will undergo a temporary abdominal closure at the end of this first operation with the planned intention for a takeback for reevaluation of bowel viability. It is highly likely that the patient will require an end ostomy of some kind. I have discussed this plan with the bedside nurses, I have conducted a briefing with the OR surgical team. We will plan to bring the patient to the operating room emergently. Given the patient's overall physiologic status, he is an ASA IV case. His perioperative mortality risk is over 50%-however without intervention, his mortality is likely 100%. Appreciate distributing clerk and cardiothoracic team input. Viviana Ellis MD General Surgeon 05/25/2022-acute ischemic colitis Consulted by ICU team with regard to the patient who is a 36-year-old male who underwent emergent repair of a type A/B aortic dissection requiring aortic valve replacement, aortic root replacement, and ascending aortic stent grafting. The patient's postoperative course was marked by delayed sternal closure. Over the last 48 hours, the patient has had progressively worsening leukocytosis to 40,000. Intermittent hypotension. Persistent findings of shock liver with transaminitis greater than 3000. Worsening metabolic acidosis. Continued oliguric renal failure with renal replacement therapy ongoing. Given the worsening physiologic parameters, the patient was taken to CT scan of the abdomen and pelvis which demonstrated findings consistent with pneumatosis involving the ascending and transverse colon. Given these findings and combined with the patient's overall physiologic status, it is likely that the patient has sustained an ischemic insult to his colon. The remainder of his exam demonstrates no evidence of other potential embolic phenomenon. Reviewed the CT scan and radiology review demonstrate no change or suggestion of occluding flap to the visceral vessels. Accordingly, I have had extensive discussions with the ICU team, cardiothoracic surgery, and the surgical ICU surgeon. Based on the patient's overall worsening parameters, young age, and dire findings on CT scan, failure to intervene would likely result in progressive physiologic deterioration and . I made every attempt to contact the patient's family. I called the patient's mother on her cell phone. I tried their home phone. We tried a family friend who is also a contact. All numbers either went directly to voicemail or did not have mailbox set up. I therefore obtained two-physician emergency consent with Dr. Hannah who is the ICU physician on-call. The nature of this operation is an emergent 1 in the setting of likely ischemic colitis resulting in pneumatosis and overall physiologic deterioration. Our operation will be a damage control type surgery with likely right colectomy or potentially a more extensive dissection/resection. It is highly likely that the patient will undergo a temporary abdominal closure at the end of this first operation with the planned intention for a takeback for reevaluation of bowel viability. It is highly likely that the patient will require an end ostomy of some kind. I have discussed this plan with the bedside nurses, I have conducted a briefing with the OR surgical team. We will plan to bring the patient to the operating room emergently. Given the patient's overall physiologic status, he is an ASA IV case. His perioperative mortality risk is over 50%-however without intervention, his mortality is likely 100%. Appreciate distributing clerk and cardiothoracic team input. Viviana Ellis MD General Surgeon S/P right hemicolectomy 05/25/2022 Aortic dissection, thoracoabdominal 05/14/2022 Dissection of aorta 05/14/2022 Hemothorax on left 05/14/2022 Spinal cord infarction 05/14/2022 Lumbar stenosis 05/25/2017 Resolved Problems Problem Noted Date Diagnosed Date Resolved Date Other chest pain 06/27/2024 07/01/2024 Gastroenteritis 06/27/2024 07/01/2024 Encounters Date Type Department Care Team Description 07/02/2025 Telephone [facility] [place] [address] [place] [address] Donte Malcolm DO 3rd recall sent from Last 3 Months Social History Tobacco Use Types Packs/Day Years Used Date Smoking Tobacco: Never Smokeless Tobacco: Never Alcohol Use Standard Drinks/Week Comments Not Currently 0 (1 standard drink = 0.6 oz pur e alcohol) Sex and Gender Information Value Date Recorded Sex Assigned at Male 06/24/2024 9:55 PM PDT Legal Sex Male 10:56 AM PST Gender Identity Male 06/24/2024 9:55 PM PDT Sexual Orientation Not on file Last Filed Vital Signs Vital Sign Reading Time Taken Comments Blood Pressure 162/70 02/15/2025 2:04 PM PDT Pulse 71 02/15/2025 2:04 PM PDT Temperature 36.4 C (97.5 F) 02/15/2025 2:04 PM PDT Respiratory Rate 18 01/14/2025 4:51 PM PDT Oxygen Saturation 99% 01/14/2025 4:51 PM PDT Inhaled Oxygen Concentration - - Weight 72.6 kg (160 lb) 01/14/2025 4:51 PM PDT Height 172.7 cm (5' 8) 01/14/2025 4:51 PM PDT Body Mass Index 24.33 01/14/2025 4:51 PM PDT Plan of Treatment Health Maintenance Due Date Last Done Comments Medicare Annual Wellness (AWV) 1985 MMR Vaccines (1 of 1 - Stand sterling series) 1986 Depression Screening (PHQ-2) 1997 Varicella Vaccines (1 of 2 - 13+ 2-dose series) 1998 DTaP,Tdap,and Td Vaccines (1 - Tdap) 2004 HM Pneumococcal Combined Age 0-49 (1 of 2 - PCV) 2004 Hepatitis B Vaccines (1 of 3 - 19+ 3-dose series) 2004 HPV Vaccines (1 - 3-dose SCD M series) 2012 COVID-19 Vaccine ( - 2024-2 6 season) 2025 Influenza Vaccine (#1) 2025 RSV Patients Over 60 years O R qualifying ( Patients) (1 - 1-dose 75+ series) 2060 Hepatitis A Vaccines Aged Out No long er eligible based on patient's age to complete this topic IPV Vaccines Aged Out No longer eligi ble based on patient's age to complete this topic Medical Devices Implanted Type Area Master Control Technician Device Identifier Shelf Expiration Date Model / Serial / Lot Ivc Filter- 022 Implanted:12/2021 (Quantity not on file) IVC Filter Vena Cava ARGON [id number] / / Ivc Filter- 022 Implanted:12/2021 (Quantity not on file) IVC Filter Vena Cava ARGON 05/07/2025 OPTION ELITE RETRIEVABLE VENA CAVA FILTER / [id number] / Prosthetic Valve Prosthetic Valve Aorta TRACY VALVE AORT PERICARD MGNAES 23 - [id number] / [id number] / [id number] / / Stent, Universa 6fr*26cm Firm - [id number] Implanted:Qty : 1 on 12/09/2023 by Donte Malcolm DO at [facility] Left: [employer] [place] 09/14/2026 [id number] / / [id number] Stent, Universa 6fr*26cm Firm - [id number] Implanted:Qty : 1 on 03/09/2024 by Donte Malcolm DO at [facility] 01/10/2027 [id number] / / [id number] Insurance MEDICAID OF [place] Member Subscriber Plan / Payer (Ef fective 2024-Present) Name:[facility] Chaka Miguel Ángel Member ID:[id number] Relation to Subscriber:Self Name:Chaka Castro Subscriber ID:[id number] Payer ID:Not on file Group ID:[id number] Type:Not on file Address: [id number] [place] [address] [employer] [facility] Advance Directives * Full Code (Latest Code Status on File) Date Activated Date Inactivated Comments 06/24/2024 11:39 AM 07/01/2024 6:06 PM * Full Code Date Activated Date Inactivated Comments 12/09/2023 11:43 AM 12/13/2023 4:06 PM Care Teams Curbstone Setter Relationship Specialty Start Date End Date Pcp, None Selected PCP - General 01/17/25 SHONNA HDEZ Referring Physician 11/22/23
[2025-09-27 23:53] VITALS: BP 131/70; PULSE 85; RESP 16; TEMP 36.9; O2SAT 100; BMI 26.6
[2025-09-28 03:52] VITALS: BP 155/72; PULSE 74; RESP 16; O2SAT 98
--- NOTE | 2025-09-28 05:27 | ED.GENADULT ---
HPI - General Adult <Christa Unger MD - Last Filed: 09/28/25 06:42> General Chief complaint: Urogenital-Male Stated complaint: Lightheaded, Urinary Symptoms Time Seen by Provider: 09/28/25 03:51 Source: patient Mode of arrival: Wheelchair History of Present Illness HPI narrative: 40-year-old gentleman post aortic dissection with multiple vascular complications and sequelae including colectomy with ileostomy,, paraplegia from spinal infarct, DVT currently on Eliquis, hypertension, he has a suprapubic Castellon catheter, pressure ulcers over the sacrum history of multidrug resistant recurrent urinary tract infections and difficulty staying hydrated due to high output from his colostomy with large volumes of oral intake. Most recently in the hospital for urinary tract infection with 3 doses of ertapenem for Klebsiella. He comes in today feeling generally run down, concerned that he has had only 500 cc of urine out in the last 24 hours in his urine is becoming increasingly dark. He is not describing significant fevers and not describing significant pain however pelvic sensation is significantly diminished due to his paraplegia. Most recent documented urinary tract infection was August 26 showing E coli and Klebsiella. Antibiotics that would cover both include ertapenem, meropenem and Zosyn. Related Data Home Medications ?Medication ?Instructions ?Recorded ?Confirmed amlodipine 10 mg tablet 10 mg PO DAILY 07/26/25 08/23/25 carvedilol 25 mg tablet 25 mg PO BID 07/26/25 08/23/25 apixaban 5 mg tablet (Eliquis) 5 mg PO BID 08/23/25 08/23/25 apixaban 5 mg tablet (Eliquis) 5 mg PO BID Spinal cord injury 08/23/25 08/23/25 Previous Rx's ?Medication ?Instructions ?Recorded power wheelchair adapter with #1 ea 09/17/25 joystick sulfamethoxazole 800 1 tab PO Q12H #10 tabs 09/28/25 mg-trimethoprim 160 mg tablet (Bactrim DS) Allergies Allergy/AdvReac Type Severity Reaction Status Date / Time oxycodone AdvReac Verified 09/27/25 23:53 tramadol AdvReac Verified 09/27/25 23:53 Review of Systems <Christa Unger MD - Last Filed: 09/28/25 06:42> Review of Systems Narrative: Increased fatigue, no obvious, general malaise Patient History <Christa Unger MD - Last Filed: 09/28/25 06:42> Medical History Aortic dissection (05/14/22) Spinal cord infarction (~05/23/22) Ischemic colon (05/26/22) Stroke (05/23/22) Surgical History 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) History of aortic valve replacement (05/14/22) S/P right colectomy (05/25/22) S/P ileostomy (05/26/22) [place] teeth removed Social History marital status: unmarried,single household members: none occupational status: student ([employer] through [employer]) Smoking Status: Never smoker alcohol intake: former substance use type: does not use Smoking Status: Never smoker Exam <Christa Unger MD - Last Filed: 09/28/25 06:42> Initial Vital Signs Initial Vital Signs: Vital Signs Temperature 98.4 F 09/27/25 23:53 Pulse Rate 85 09/27/25 23:53 Respiratory Rate 16 09/27/25 23:53 Blood Pressure 131/70 09/27/25 23:53 Pulse Oximetry 100 09/27/25 23:53 Oxygen Delivery Method Room Air 09/27/25 23:53 General: Healthy appearing, fatigued but in no acute distress. Able to give a complete and coherent history. HEENT: Moist mucous membranes, normal sclera with reactive pupils, Respiratory: Lungs are clear to auscultation, no wheezing no rales no rhonchi. Full and symmetrical air movement Cardiac: Regular rate and rhythm no murmurs no bruits Abdomen: Soft, nontender, no rebound or guarding, no flank pain. Ileostomy in the right lower quadrant is healthy with appropriate output. Suprapubic catheter site is unremarkable Neurologic: Lower extremity paralysis with diminished pelvic sensation Extremities: No obvious trauma bruising or skin breakdown Psych: Cooperative, appropriate insight and affect <Ilia Rhodes DO - Last Filed: 09/28/25 08:20> Initial Vital Signs Initial Vital Signs: Vital Signs Temperature 98.4 F 09/27/25 23:53 Pulse Rate 85 09/27/25 23:53 Respiratory Rate 16 09/27/25 23:53 Blood Pressure 131/70 09/27/25 23:53 Pulse Oximetry 100 09/27/25 23:53 Oxygen Delivery Method Room Air 09/27/25 23:53 Course <Christa Unger MD - Last Filed: 09/28/25 06:42> Orders Ordered: ED Orders 09/28/25 05:50 Blood Culture Stat Complete Blood Count AUTO DIFF Stat Comprehensive Metabolic Panel Stat Lactate (Lactic Acid) Stat 09/28/25 06:53 Urinalysis and Microscopic Stat Urine Culture Stat Discontinued Medications Sodium Chloride (Normal Saline 0.9%) 1,000 mls @ 1,000 mls/hr IV BOLUS ONE Stop: 09/28/25 06:47 Last Admin: 09/28/25 06:06 Dose: 1,000 mls/hr Documented By: MARIA ESTHER Vital Signs Vital signs: Vital Signs - 8 hr 09/28/25 03:52 Pulse Rate 74 Respiratory Rate 16 Blood Pressure 155/72 H Pulse Oximetry 98 Oxygen Delivery Method Room Air <Ilia Rhodes DO - Last Filed: 09/28/25 08:20> Orders Ordered: ED Orders 09/28/25 05:50 Blood Culture Stat Complete Blood Count AUTO DIFF Stat Comprehensive Metabolic Panel Stat Lactate (Lactic Acid) Stat 09/28/25 06:53 Urinalysis and Microscopic Stat Urine Culture Stat Discontinued Medications Sodium Chloride (Normal Saline 0.9%) 1,000 mls @ 1,000 mls/hr IV BOLUS ONE Stop: 09/28/25 06:47 Last Admin: 09/28/25 06:06 Dose: 1,000 mls/hr Documented By: MARIA ESTHER Vital Signs Vital signs: Vital Signs - 8 hr 09/28/25 03:52 Pulse Rate 74 Respiratory Rate 16 Blood Pressure 155/72 H Pulse Oximetry 98 Oxygen Delivery Method Room Air Medical Decision Making <Christa Unger MD - Last Filed: 09/28/25 06:42> Lab Data 09/28/25 05:50 09/28/25 05:50 Labs: Lab Results 09/28/25 09/28/25 Range/Units 05:50 06:53 WBC 6.6 (4.5-11.0) X10^3/uL RBC 5.98 H (4.5-5.9) X10^6/uL Hgb 16.6 (13.5-17.5) g/dL Hct 48.9 (41-53) % MCV 81.8 (80-100) fL MCH 27.7 (26-34) PG MCHC 33.9 (30-36) % RDW 14.6 (11.6-14.8) % Plt Count 139 L (150-400) X10^3/uL Neut % (Auto) 84.1 H (50-75) % Lymph % (Auto) 10.9 L (25-40) % [place] % (Auto) 3.9 (3-14) % Eos % (Auto) 0.3 L (2-4) % Baso % (Auto) 0.8 (0-2) % Neut # (Auto) 5500 (2348-7796) /uL Lymph # (Auto) 700 L (6348-3053) /uL [place] # (Auto) 300 (0-900) /uL Eos # (Auto) 0 (0-450) /uL Baso # (Auto) 100 (0-100) /uL Sodium 141 (137-145) mmol/L Potassium 4.1 (3.4-5.1) mmol/L Chloride 102 (98-107) mmol/L Carbon Dioxide 26 (22-32) mmol/L BUN 21 H (9-20) mg/dL Creatinine 0.82 (0.66-1.25) mg/dL Estimated GFR > 60 (>60) mL/min BUN/Creatinine Ratio 25.6 H (6-22) Glucose 97 (70-99) mg/dL Lactate 1.7 (0.7-2.1) mmol/L Calcium 9.4 (8.4-10.2) mg/dL Total Bilirubin 0.7 (0.2-1.3) mg/dL AST 32 (17-59) IU/L ALT 27 (<50) IU/L Alkaline Phosphatase 116 (38-126) U/L Total Protein 10.1 H (6.3-8.2) g/dL Albumin 5.3 H (3.5-5.0) g/dL Globulin 4.8 H (1.7-4.1) g/dL Albumin/Globulin Ratio 1.1 (1.0-2.8) Urine Color Yellow Urine Appearance Slightly cloudy Urine pH 5.5 (4.5-8.0) Ur Specific [place] 1.025 (1.000-1.035) Urine Protein 1+ H (Negative) Urine Glucose (UA) Negative (Negative) g/dL Urine Ketones Trace H (NEGATIVE) Urine Occult Blood 3+ H (Negative) Urine Nitrate Positive H (Negative) Urine Bilirubin Negative (NEGATIVE) Urine Urobilinogen 0.2 (0.2) E.U./dL Ur Leukocyte Esterase 1+ H (NEGATIVE) Urine RBC 10-30/hpf H (0-5/HPF) Urine WBC 10-30/hpf H (0-5/HPF) Ur Squamous Epith Cells 0-1 /hpf (0-5/HPF) Urine Bacteria Moderate (10-30) H (None) Ur Culture Indicated? Specimen cultured Vol Urine Centrifuged 10ml (spun) MDM Narrative Medical decision making narrative: CC: Decreased urine output, increasing dizziness Complicating co-morbidities: Recurrent episodes of E coli and Klebsiella multidrug resistant urinary tract infections, suprapubic catheter, paraplegia, colectomy with ileostomy all as consequences of vascular occlusion after aortic dissection Data collected from: patient Social determinants of health that may influence the patients condition: Difficulty with fluid maintenance due to high output ileostomy Medical records reviewed: Recent hospital records with hospitalization in August reviewed Differential considered: Dehydration, electrolyte abnormalities, acute kidney infection, doubt sepsis given the absence of fever and no tachycardia, urinary tract infection is possible Exam documented above, pertinent findings include: Slightly fatigued but appropriate. He is able to transfer from his wheelchair to the bed without assistance. Heart and lungs are benign. His abdomen is not tender. Appropriate out for from his ileostomy. Lab Test results independently reviewed as above. Pertinent findings: CBC does not suggest infection nor anemia Chemistries do not show renal insufficiency nor electrolyte abnormality Treatments: 1 L normal saline Re-evaluations: Discussion: <Ilia Rhodes, DO - Last Filed: 09/28/25 08:20> Lab Data Labs: Lab Results 09/28/25 09/28/25 Range/Units 05:50 06:53 WBC 6.6 (4.5-11.0) X10^3/uL RBC 5.98 H (4.5-5.9) X10^6/uL Hgb 16.6 (13.5-17.5) g/dL Hct 48.9 (41-53) % MCV 81.8 (80-100) fL MCH 27.7 (26-34) PG MCHC 33.9 (30-36) % RDW 14.6 (11.6-14.8) % Plt Count 139 L (150-400) X10^3/uL Neut % (Auto) 84.1 H (50-75) % Lymph % (Auto) 10.9 L (25-40) % [place] % (Auto) 3.9 (3-14) % Eos % (Auto) 0.3 L (2-4) % Baso % (Auto) 0.8 (0-2) % Neut # (Auto) 5500 (3380-8387) /uL Lymph # (Auto) 700 L (8354-9349) /uL [place] # (Auto) 300 (0-900) /uL Eos # (Auto) 0 (0-450) /uL Baso # (Auto) 100 (0-100) /uL Sodium 141 (137-145) mmol/L Potassium 4.1 (3.4-5.1) mmol/L Chloride 102 (98-107) mmol/L Carbon Dioxide 26 (22-32) mmol/L BUN 21 H (9-20) mg/dL Creatinine 0.82 (0.66-1.25) mg/dL Estimated GFR > 60 (>60) mL/min BUN/Creatinine Ratio 25.6 H (6-22) Glucose 97 (70-99) mg/dL Lactate 1.7 (0.7-2.1) mmol/L Calcium 9.4 (8.4-10.2) mg/dL Total Bilirubin 0.7 (0.2-1.3) mg/dL AST 32 (17-59) IU/L ALT 27 (<50) IU/L Alkaline Phosphatase 116 (38-126) U/L Total Protein 10.1 H (6.3-8.2) g/dL Albumin 5.3 H (3.5-5.0) g/dL Globulin 4.8 H (1.7-4.1) g/dL Albumin/Globulin Ratio 1.1 (1.0-2.8) Urine Color Yellow Urine Appearance Slightly cloudy Urine pH 5.5 (4.5-8.0) Ur Specific [place] 1.025 (1.000-1.035) Urine Protein 1+ H (Negative) Urine Glucose (UA) Negative (Negative) g/dL Urine Ketones Trace H (NEGATIVE) Urine Occult Blood 3+ H (Negative) Urine Nitrate Positive H (Negative) Urine Bilirubin Negative (NEGATIVE) Urine Urobilinogen 0.2 (0.2) E.U./dL Ur Leukocyte Esterase 1+ H (NEGATIVE) Urine RBC 10-30/hpf H (0-5/HPF) Urine WBC 10-30/hpf H (0-5/HPF) Ur Squamous Epith Cells 0-1 /hpf (0-5/HPF) Urine Bacteria Moderate (10-30) H (None) Ur Culture Indicated? Specimen cultured Vol Urine Centrifuged 10ml (spun) MDM Narrative Medical decision making narrative: CC: Decreased urine output, increasing dizziness Complicating co-morbidities: Recurrent episodes of E coli and Klebsiella multidrug resistant urinary tract infections, suprapubic catheter, paraplegia, colectomy with ileostomy all as consequences of vascular occlusion after aortic dissection Data collected from: patient Social determinants of health that may influence the patients condition: Difficulty with fluid maintenance due to high output ileostomy Medical records reviewed: Recent hospital records with hospitalization in August reviewed Differential considered: Dehydration, electrolyte abnormalities, acute kidney infection, doubt sepsis given the absence of fever and no tachycardia, urinary tract infection is possible Exam documented above, pertinent findings include: Slightly fatigued but appropriate. He is able to transfer from his wheelchair to the bed without assistance. Heart and lungs are benign. His abdomen is not tender. Appropriate out for from his ileostomy. Lab Test results independently reviewed as above. Pertinent findings: CBC does not suggest infection nor anemia Chemistries do not show renal insufficiency nor electrolyte abnormality Treatments: 1 L normal saline Re-evaluations: Discussion: All labwork, vital signs, direct service professional note, medication list, previous ER visits, and all imaging studies reviewed. Pt given rocephin 2g IV x1 here and d/c home on bactrim with UA + nitrite+ leuk, 10-30 wbc 10-30 rbc. wbc 6.6 hg 16.6 [id number]. na 141 k 4.1 cl 102 c02 26 bun 21cr 0.82 glu 97 lactate 1.7. D/c home on bactrim rx Discharge Plan Departure Patient Disposition: Home Clinical Impression: Acute UTI Instructions: DI for Urinary Tract Infection (UTI) Activity Restrictions/Additional Instructions: Return with new or worsening symptoms. Keep hydrated. Take medication as directed. Follow up with pcp 1 week if no improvement in symptoms. Prescriptions: New sulfamethoxazole-trimethoprim [Bactrim DS] 800-160 mg tablet 1 tab PO Q12H Qty: 10 0RF No Action carvedilol 25 mg tablet 25 mg PO BID amlodipine 10 mg tablet 10 mg PO DAILY (DME) power wheelchair adapter with joystick See Rx Instructions .Route .MEDSUPPLY Qty: 1 0RF Rx Instructions: As directed Eliquis 5 mg tablet 5 mg PO BID Patient Comments: Current DVT in left leg. Prior: Blood clot in optical nerve, brain (bilateral strokes), and IVC (blood filter in neck). Eliquis 5 mg tablet 5 mg PO BID Referrals: Chuck Gaines MD [Primary Care Provider, Family Practice] Stand Alone Forms: Patient Portal/API
[2025-09-28] MEDS: SODIUM CHLORIDE 0.9% 1,000 ML 1000 ML IV (06:06)
[2025-09-28 06:21] LABS: Add Manual Diff / Slide Review NO; Hematocrit 48.9 % (41-53); Hemoglobin 16.6 g/dL (13.5-17.5); Lymphocytes Absolute Auto 700 /uL (1100-4500); Mean Corpuscular HGB Conc 33.9 % (30-36); Mean Corpuscular Hemoglobin 27.7 PG (26-34); Mean Corpuscular Volume 81.8 fL (80-100); Platelet Count 139 X10^3/uL (150-400)
[2025-09-28 06:25] LABS: Lactate (Lactic Acid) 1.7 mmol/L (0.7-2.1)
[2025-09-28 06:26] LABS: Alanine Aminotransferase 27 IU/L (<50); Albumin 5.3 g/dL (3.5-5.0); Albumin Globulin Ratio 1.1 (1.0-2.8); Alkaline Phosphatase 116 U/L (38-126); Blood Urea Nitrogen 21 mg/dL (9-20); Calcium 9.4 mg/dL (8.4-10.2); Carbon Dioxide 26 mmol/L (22-32); Chloride 102 mmol/L (98-107); Estimated Glomerular Filt Rate > 60 mL/min (>60); Globulin 4.8 g/dL (1.7-4.1); Glucose 97 mg/dL (70-99); HEMOLYSIS 16 (0-50); Potassium 4.1 mmol/L (3.4-5.1); Sodium 141 mmol/L (137-145); Total Protein 10.1 g/dL (6.3-8.2)
[2025-09-28 07:13] LABS: Bilirubin Urine UA NEGATIVE (NEGATIVE); Color Urine UA YELLOW; Glucose Urine UA NEGATIVE (Negative); Ketones Urine UA TRACE (NEGATIVE); Leukocyte Esterase Urine UA 1+ (NEGATIVE); Nitrite Urine UA POSITIVE (Negative); Occult Blood Urine UA 3+ (Negative); Protein Urine UA 1+ (Negative); Specific Gravity Urine UA 1.025 (1.000-1.035); Urobilinogen Urine UA 0.2 E.U./dL (0.2); pH Urine UA 5.5 (4.5-8.0)
[2025-09-28 07:15] LABS: Appearance Urine UA Slightly Cloudy
[2025-09-28 07:24] LABS: Culture Indicated Urine Specimen Cultured
[2025-09-28] MEDS: cefTRIAXone 2,000 MG in SODIUM CHLORIDE 0.9% 100 ML 200 MG IV (08:06)
[2025-09-28 09:03] VITALS: BP 141/63; PULSE 89; O2SAT 98
== END 2025-09-28 09:03 | disposition home or self-care (01) ==
PROVIDERS: Emergency Medicine; Emergency Provider Family Medicine; PCP Family Medicine
DX: N39.0 Urinary tract infection, site not specified (principal); R42 Dizziness and giddiness; I10 Essential (primary) hypertension
CPT/HCPCS: 36415; 80053; 81001; 83605; 85025; 87040; 87077; 87086; 87186; 96361; 96365; 99284; J0696; J7030; J7050